=== PATIENT | female | born 2000 | race Caucasian/White ===

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

== ENCOUNTER 2020-05-07 00:29 | Observation (INO) | payer BC, MEDICAID ==
[2020-05-07] MEDS ORDERED: Albuterol 0.083% 2.5 MG/3 ML Neb Soln ONE ×2 (00:45)
[2020-05-07] MEDS ORDERED: propofoL 100 ML ONE (00:51)
--- NOTE | 2020-05-07 00:58 | EDM.PDOC ---
ED HPI GENERAL MEDICAL PROBLEM - General Chief Complaint: Respiratory Problem Stated Complaint: MONICA AMB Time Seen by Provider: 05/07/20 00:54 Source of Information: Reports: EMS History Limitations: Reports: Altered Mental Status - History of Present Illness INITIAL COMMENTS - FREE TEXT/NARRATIVE: A medical alert was called for this patient. Ms. Shook is a very pleasant 89-year-old woman with a past medical history significant for asthma and type 1 diabetes, who is now brought to the ED by EMS respiratory distress. According to the patient's mother, the patient went to bed around 10:00 last night, feeling just fine, but then knocked on her door around midnight, stating that she could not breathe. She stated that she had run out of her inhaler, and that the neb treatments were ineffective. Mom does not know how many neb treatments the patient may have tried. Mom called 911, and was informed that to cruise were out for other patients, and they advised her to put the patient into the car and start driving towards the hospital. The patient was too weak to stand, however, they were able to get her into the car, and the patient's mother drove her as far as [place], the patient may have stopped breathing. The patient's mother pulled over there and gave the patient a single rescue breath before EMS arrived after a few minutes. When EMS arrived, they found the patient to have agonal breathing, unresponsive. They performed a BMV en route to the ED. they did not give any medications. Upon arrival to the ED, the patient is initial BP was found to be elevated at 144/125 with a HR of 122 bpm, a RR of 8 rpm, afebrile, possibly saturating 74% on one reading, however, it was very quickly 100% with BMV. She was unresponsive to noxious stimuli. EMS reported that the patient had told her mother "I'm sorry". Not knowing the back story upon arrival, there was concern that the patient may have taken an overdose, therefore she was given 2 mg of IV Narcan, to no effect. On auscultation of her lungs, she had expiratory wheezes throughout her lung moy with a prolonged expiratory phase. The decision was therefore made to intubate the patient for respiratory failure (asthma exacerbation) and airway protection (low GCS). The patient was given 40 mg of IV propofol, along with 60 mg of IV rocuronium. She was then intubated at 00:42 with an 8.0 OETT to 24 cm incisors using a MAC 3 blade. Once the tube was secured, the patient was given albuterol solution via the ET tube. The patient was started on a propofol drip at 50 mcg/kg/min. An OG tube was placed per Charmaine ROGERS. A post-procedure portable chest x-ray was performed. According to the patient's mother, the patient has a cough on and off, otherwise, she has not had a recent fever, chills, sore throat, ear pain, nasal or sinus congestion, dyspnea, chest pain, palpitations, nausea, vomiting, constipation, diarrhea, abdominal pain, urinary symptoms, recent weight gain or weight loss, recent bloody bowel movements or black bowel movements, recent joint aches, headaches, or rashes. The patient's PCP is Michell Israel NP. - Related Data Allergies Allergy/AdvReac Type Severity Reaction Status Date / Time Penicillins Allergy Intermediate Rash Verified 05/02/17 20:24 adhesive tape Allergy Rash Verified 05/02/17 20:24 anjelica Allergy Difficulty Verified 05/02/17 20:24 Breathing Home Meds: Home Meds Singulair. 10 mg PO DAILY 10/09/14 [History] Zyrtec. 10 mg PO DAILY 10/09/14 [History] Albuterol [Proair HFA] 1 - 2 puff INH ASDIRECTED PRN 01/17/15 [History] Albuterol [Proventil Neb Soln] 2.5 mg NEB Q4HR PRN 01/17/15 [History] Insulin Aspart [NovoLOG] 0 unit SUBCUT .PHARMACY TO DOSE 01/17/15 [History] Pantoprazole [ProTONIX] 40 mg PO BEDTIME PRN 01/17/15 [History] Inhaler, Assist Devices [Space Chamber Plus] 1 each MC ASDIRECTED #1 spacer 06/07/16 [Rx] Advair Inhaler. 1 puff INH BID 05/02/17 [History] Prednisone [IJD: predniSONE] 20 mg PO BID PRN 10/03/17 [History] Past Medical History HEENT History: Reports: Allergic Rhinitis Respiratory History: Reports: Asthma Psychiatric History: Reports: Anxiety Endocrine/Metabolic History: Reports: Diabetes, Type I, Other (See Below) (Harris galactosemia) Dermatologic History: Reports: Eczema Social & Family History - Tobacco Use Tobacco Use Status *Q: Never Tobacco User - Alcohol Use Alcohol Use History: No - Recreational Drug Use Recreational Drug Use: No - Living Situation & Occupation Living situation: Reports: Single, with Family Occupation: Student (12th grade) ED ROS GENERAL - Review of Systems Review Of Systems: Comprehensive ROS is negative, except as noted in HPI. ED EXAM, GENERAL - Physical Exam Exam: See Below Exam Limited By: Altered Mental Status (Unresponsive) General Appearance: WD/WN Eye Exam: Bilateral Eye: Other (pupils 7 mm, non-reactive) Ears: Normal External Exam Nose: Normal Inspection Throat/Mouth: Normal Inspection, Normal Lips, Normal Teeth, Normal Gums, Normal Oropharynx (on intubation), No Airway Compromise Head: Atraumatic, Normocephalic Neck: Normal Inspection, Supple, Non-Tender, Full Range of Motion. No: Lymphadenopathy (L), Lymphadenopathy (R) Respiratory/Chest: No Accessory Muscle Use, Decreased Breath Sounds, Wheezing (throughout), Prolonged Expiration. No: Crackles, Rhonchi, Stridor Cardiovascular: Normal Peripheral Pulses, No Edema, No Gallop, No JVD, No Murmur, No Rub, Tachycardia (regular) Peripheral Pulses: 3+: Radial (L), Radial (R) GI/Abdominal: Normal Bowel Sounds, Soft, No Organomegaly, No Distention, No Abnormal Bruit, No Mass Back Exam: Normal Inspection, Full Range of Motion, NT Extremities: Normal Inspection, Normal Range of Motion, No Pedal Edema, Normal Capillary Refill Neurological: Unresponsive Skin Exam: Warm, Dry, Intact, Normal Color, No Rash Course - Vital Signs Last Recorded V/S: Last Vital Signs Temp 36.2 C 05/07/20 01:09 Pulse 122 H 05/07/20 01:09 Resp 8 L 05/07/20 01:09 BP 144/125 H 05/07/20 01:09 Pulse Ox 100 05/07/20 01:23 - Orders/Labs/Meds Orders: Active Orders 24 hr Category Date Time Status Accu Check [Blood Glucose Check, Bedside] [RC] ONETIME Care 05/07/20 01:01 Active Accu Check [Blood Glucose Check, Bedside] [RC] ONETIME Care 05/07/20 10:13 Active EKG Documentation Completion [RC] STAT Care 05/07/20 01:00 Active RT Aerosol Therapy [RC] ASDIRECTED Care 05/07/20 01:23 Active RT Aerosol Therapy [RC] ASDIRECTED Care 05/07/20 01:23 Active Chest 1V-Tube Placement Chk NC [CR] Stat Exams 05/07/20 00:33 Taken Midazolam [Versed 5 MG/ML] 100 mg Med 05/07/20 02:15 Active Sodium Chloride 0.9% [Normal Saline] 80 ml IV TITRATE Sodium Chloride 0.9% [Normal Saline] 1,000 ml Med 05/07/20 01:15 Active IV ASDIRECTED propofoL [Diprivan 100 ML] 100 ml Med 05/07/20 01:15 Active IV TITRATE Isolation [COMM] Routine Oth 05/07/20 01:36 Ordered Medication Orders Propofol (Diprivan 100 Ml) 100 mls @ 18 mls/hr IV TITRATE GUMARO; Protocol Last Admin: 05/07/20 03:56 Dose: 100 mcg/kg/min, 36 mls/hr Documented by: Titration: 05/07/20 03:56 Dose: 50 mcg/kg/min, 18 mls/hr Documented by: Admin: 05/07/20 01:20 Dose: 50 mcg/kg/min, 18 mls/hr Documented by: ETHAN Sodium Chloride (Normal Saline) 1,000 mls @ 150 mls/hr IV ASDIRECTED GUMARO Last Admin: 05/07/20 01:06 Dose: 150 mls/hr Documented by: ETHAN Midazolam HCl 100 mg/ Sodium (Chloride) 100 mls @ 6 mls/hr IV TITRATE GUMARO; Protocol Last Admin: 05/07/20 06:55 Dose: 0.2 mg/kg/hr, 12 mls/hr Documented by: [email or web address] Titration: 05/07/20 06:55 Dose: 0.1 mg/kg/hr, 6 mls/hr Documented by: Admin: 05/07/20 02:26 Dose: 0.1 mg/kg/hr, 6 mls/hr Documented by: SHWETHA Labs: Laboratory Tests 05/07/20 05/07/20 05/07/20 Range/Units 00:30 00:32 00:32 WBC 19.90 H (3.98-10.04) K/mm3 RBC 4.96 (3.98-5.22) M/mm3 Hgb 14.6 D (11.2-15.7) gm/dl Hct 45.0 H (34.1-44.9) % MCV 90.7 D (79.4-94.8) fl MCH 29.4 (25.6-32.2) pg MCHC 32.4 (32.2-35.5) g/dl RDW Std Deviation 40.8 (36.4-46.3) fL Plt Count 548 H D (182-369) K/mm3 MPV 8.8 L (9.4-12.3) fl Neut % (Auto) 29.5 L (34.0-71.1) % Lymph % (Auto) 48.1 (19.3-51.7) % Mcpherson % (Auto) 7.4 (4.7-12.5) % Eos % (Auto) 14.1 H (0.7-5.8) Baso % (Auto) 0.4 (0.1-1.2) % Neut # (Auto) 5.85 (1.56-6.13) K/mm3 Lymph # (Auto) 9.58 H (1.18-3.74) K/mm3 [place]pherson # (Auto) 1.48 H (0.24-0.36) K/mm3 Eos # (Auto) 2.81 H (0.04-0.36) K/mm3 Baso # (Auto) 0.08 (0.01-0.08) K/mm3 Manual Slide Review Abnormal smear D-Dimer, Quantitative (0.19-0.50) mg/L Puncture Site ABG pH (7.35-7.45) ABG pCO2 (35.0-45.0) mmHg ABG pO2 (80.0-100.0) mmHg ABG HCO3 (22.0-26.0) meq/L ABG O2 Saturation (96.0-97.0) % ABG Base Excess (-2-2.0) A-a Gradient mmHg O2 Delivery Device FiO2 (21.00-100.00) % Tidal Volume cc PEEP cmH20 Blood Gas Comments Sodium 141 (136-145) mEq/L Potassium 3.3 L (3.5-5.1) mEq/L Chloride 105 (98-107) mEq/L Carbon Dioxide 26 (21-32) mEq/L Anion Gap 13.3 (5-15) BUN 10 (7-18) mg/dL Creatinine 0.9 (0.55-1.02) mg/dL Est Cr Clr Drug Dosing TNP Estimated GFR (MDRD) > 60 (>60) mL/min BUN/Creatinine Ratio 11.1 L (14-18) Glucose 240 H (74-106) mg/dL POC Glucose 222 H (70-105) mg/dL Lactic Acid (0.4-2.0) mmol/L Calcium 8.3 L (8.5-10.1) mg/dL Magnesium 2.2 (1.8-2.4) mg/dl Total Bilirubin 0.3 (0.2-1.0) mg/dL AST 17 (15-37) U/L ALT 18 (14-59) U/L Alkaline Phosphatase 78 (46-116) U/L Total Protein 7.0 (6.4-8.2) g/dl Albumin 3.5 (3.4-5.0) g/dl Globulin 3.5 gm/dL Albumin/Globulin Ratio 1.0 (1-2) Urine Color (Yellow) Urine Appearance (Clear) Urine pH (5.0-8.0) Ur Specific [place] (1.005-1.030) Urine Protein (Negative) Urine Glucose (UA) (Negative) Urine Ketones (Negative) Urine Occult Blood (Negative) Urine Nitrite (Negative) Urine Bilirubin (Negative) Urine Urobilinogen (0.2-1.0) Ur Leukocyte Esterase (Negative) Urine HCG, Qual (NEGATIVE) Salicylates (2.8-20) mg/dL Urine Opiates Screen (RXPRAG=665) Ur Buprenorphine Scrn (CUTOFF=10) Ur Oxycodone Screen (LDH4YA=218) Urine Methadone Screen (SEFVJO=026) Ur Propoxyphene Screen (JNYNGF=177) Acetaminophen (10-30) ug/mL Ur Barbiturates Screen (ZOECOM=702) Ur Tricyclics Screen (XKWTGY=155) Ur Phencyclidine Scrn (CUTOFF=25) Ur Amphetamine Screen (QCFKZD=959) U Methamphetamines Scrn (IKNQWQ=167) U Benzodiazepines Scrn (KGBOYH=230) U Cocaine Metab Screen (SNWHXA=635) U Marijuana (THC) Screen (CUTOFF=50) Ethyl Alcohol 0.00 (0.00) gm% SARS-CoV-2 RNA (JAZLYN) (NEGATIVE) 05/07/20 05/07/20 05/07/20 Range/Units 00:32 00:32 00:32 WBC (3.98-10.04) K/mm3 RBC (3.98-5.22) M/mm3 Hgb (11.2-15.7) gm/dl Hct (34.1-44.9) % MCV (79.4-94.8) fl MCH (25.6-32.2) pg MCHC (32.2-35.5) g/dl RDW Std Deviation (36.4-46.3) fL Plt Count (182-369) K/mm3 MPV (9.4-12.3) fl Neut % (Auto) (34.0-71.1) % Lymph % (Auto) (19.3-51.7) % Mcpherson % (Auto) (4.7-12.5) % Eos % (Auto) (0.7-5.8) Baso % (Auto) (0.1-1.2) % Neut # (Auto) (1.56-6.13) K/mm3 Lymph # (Auto) (1.18-3.74) K/mm3 Mcpherson # (Auto) (0.24-0.36) K/mm3 Eos # (Auto) (0.04-0.36) K/mm3 Baso # (Auto) (0.01-0.08) K/mm3 Manual Slide Review D-Dimer, Quantitative 0.52 H (0.19-0.50) mg/L Puncture Site ABG pH (7.35-7.45) ABG pCO2 (35.0-45.0) mmHg ABG pO2 (80.0-100.0) mmHg ABG HCO3 (22.0-26.0) meq/L ABG O2 Saturation (96.0-97.0) % ABG Base Excess (-2-2.0) A-a Gradient mmHg O2 Delivery Device FiO2 (21.00-100.00) % Tidal Volume cc PEEP cmH20 Blood Gas Comments Sodium (136-145) mEq/L Potassium (3.5-5.1) mEq/L Chloride (98-107) mEq/L Carbon Dioxide (21-32) mEq/L Anion Gap (5-15) BUN (7-18) mg/dL Creatinine (0.55-1.02) mg/dL Est Cr Clr Drug Dosing Estimated GFR (MDRD) (>60) mL/min BUN/Creatinine Ratio (14-18) Glucose (74-106) mg/dL POC Glucose (70-105) mg/dL Lactic Acid (0.4-2.0) mmol/L Calcium (8.5-10.1) mg/dL Magnesium (1.8-2.4) mg/dl Total Bilirubin (0.2-1.0) mg/dL AST (15-37) U/L ALT (14-59) U/L Alkaline Phosphatase (46-116) U/L Total Protein (6.4-8.2) g/dl Albumin (3.4-5.0) g/dl Globulin gm/dL Albumin/Globulin Ratio (1-2) Urine Color (Yellow) Urine Appearance (Clear) Urine pH (5.0-8.0) Ur Specific [place] (1.005-1.030) Urine Protein (Negative) Urine Glucose (UA) (Negative) Urine Ketones (Negative) Urine Occult Blood (Negative) Urine Nitrite (Negative) Urine Bilirubin (Negative) Urine Urobilinogen (0.2-1.0) Ur Leukocyte Esterase (Negative) Urine HCG, Qual (NEGATIVE) Salicylates 0.4 L (2.8-20) mg/dL Urine Opiates Screen (RIOEMR=124) Ur Buprenorphine Scrn (CUTOFF=10) Ur Oxycodone Screen (DQQ0RB=748) Urine Methadone Screen (SKOEIL=081) Ur Propoxyphene Screen (EZLIMU=226) Acetaminophen 0 L (10-30) ug/mL Ur Barbiturates Screen (VEJPCC=298) Ur Tricyclics Screen (RKYETO=113) Ur Phencyclidine Scrn (CUTOFF=25) Ur Amphetamine Screen (VVJEUB=138) U Methamphetamines Scrn (IBYMJB=850) U Benzodiazepines Scrn (BWIMVL=651) U Cocaine Metab Screen (HQOSMS=467) U Marijuana (THC) Screen (CUTOFF=50) Ethyl Alcohol (0.00) gm% SARS-CoV-2 RNA (JAZLYN) (NEGATIVE) 05/07/20 05/07/20 05/07/20 Range/Units 00:45 00:59 00:59 WBC (3.98-10.04) K/mm3 RBC (3.98-5.22) M/mm3 Hgb (11.2-15.7) gm/dl Hct (34.1-44.9) % MCV (79.4-94.8) fl MCH (25.6-32.2) pg MCHC (32.2-35.5) g/dl RDW Std Deviation (36.4-46.3) fL Plt Count (182-369) K/mm3 MPV (9.4-12.3) fl Neut % (Auto) (34.0-71.1) % Lymph % (Auto) (19.3-51.7) % Mcpherson % (Auto) (4.7-12.5) % Eos % (Auto) (0.7-5.8) Baso % (Auto) (0.1-1.2) % Neut # (Auto) (1.56-6.13) K/mm3 Lymph # (Auto) (1.18-3.74) K/mm3 [place]pherson # (Auto) (0.24-0.36) K/mm3 Eos # (Auto) (0.04-0.36) K/mm3 Baso # (Auto) (0.01-0.08) K/mm3 Manual Slide Review D-Dimer, Quantitative (0.19-0.50) mg/L Puncture Site ABG pH (7.35-7.45) ABG pCO2 (35.0-45.0) mmHg ABG pO2 (80.0-100.0) mmHg ABG HCO3 (22.0-26.0) meq/L ABG O2 Saturation (96.0-97.0) % ABG Base Excess (-2-2.0) A-a Gradient mmHg O2 Delivery Device FiO2 (21.00-100.00) % Tidal Volume cc PEEP cmH20 Blood Gas Comments Sodium (136-145) mEq/L Potassium (3.5-5.1) mEq/L Chloride (98-107) mEq/L Carbon Dioxide (21-32) mEq/L Anion Gap (5-15) BUN (7-18) mg/dL Creatinine (0.55-1.02) mg/dL Est Cr Clr Drug Dosing Estimated GFR (MDRD) (>60) mL/min BUN/Creatinine Ratio (14-18) Glucose (74-106) mg/dL POC Glucose (70-105) mg/dL Lactic Acid (0.4-2.0) mmol/L Calcium (8.5-10.1) mg/dL Magnesium (1.8-2.4) mg/dl Total Bilirubin (0.2-1.0) mg/dL AST (15-37) U/L ALT (14-59) U/L Alkaline Phosphatase (46-116) U/L Total Protein (6.4-8.2) g/dl Albumin (3.4-5.0) g/dl Globulin gm/dL Albumin/Globulin Ratio (1-2) Urine Color Yellow (Yellow) Urine Appearance Clear (Clear) Urine pH 6.5 (5.0-8.0) Ur Specific [place] > or = 1.030 (1.005-1.030) Urine Protein 2+ H (Negative) Urine Glucose (UA) Trace H (Negative) Urine Ketones Negative (Negative) Urine Occult Blood 1+ H (Negative) Urine Nitrite Negative (Negative) Urine Bilirubin Negative (Negative) Urine Urobilinogen 0.2 (0.2-1.0) Ur Leukocyte Esterase Negative (Negative) Urine HCG, Qual (NEGATIVE) Salicylates (2.8-20) mg/dL Urine Opiates Screen Negative (INKTRS=562) Ur Buprenorphine Scrn Negative (CUTOFF=10) Ur Oxycodone Screen Negative (RZN5RN=893) Urine Methadone Screen Negative (PDDJVX=680) Ur Propoxyphene Screen Negative (MOIOQC=479) Acetaminophen (10-30) ug/mL Ur Barbiturates Screen Negative (WDVFFB=391) Ur Tricyclics Screen Negative (TGELCY=026) Ur Phencyclidine Scrn Negative (CUTOFF=25) Ur Amphetamine Screen Negative (LIOJKL=781) U Methamphetamines Scrn Negative (PUUHBB=635) U Benzodiazepines Scrn Negative (XQMMWQ=816) U Cocaine Metab Screen Negative (WWOIVM=689) U Marijuana (THC) Screen Negative (CUTOFF=50) Ethyl Alcohol (0.00) gm% SARS-CoV-2 RNA (JAZLYN) Negative (NEGATIVE) 05/07/20 05/07/20 05/07/20 Range/Units 00:59 01:05 02:20 WBC (3.98-10.04) K/mm3 RBC (3.98-5.22) M/mm3 Hgb (11.2-15.7) gm/dl Hct (34.1-44.9) % MCV (79.4-94.8) fl MCH (25.6-32.2) pg MCHC (32.2-35.5) g/dl RDW Std Deviation (36.4-46.3) fL Plt Count (182-369) K/mm3 MPV (9.4-12.3) fl Neut % (Auto) (34.0-71.1) % Lymph % (Auto) (19.3-51.7) % Mcpherson % (Auto) (4.7-12.5) % Eos % (Auto) (0.7-5.8) Baso % (Auto) (0.1-1.2) % Neut # (Auto) (1.56-6.13) K/mm3 Lymph # (Auto) (1.18-3.74) K/mm3 [place] # (Auto) (0.24-0.36) K/mm3 Eos # (Auto) (0.04-0.36) K/mm3 Baso # (Auto) (0.01-0.08) K/mm3 Manual Slide Review D-Dimer, Quantitative (0.19-0.50) mg/L Puncture Site Lt radial ABG pH 7.07 L* (7.35-7.45) ABG pCO2 91.8 H* (35.0-45.0) mmHg ABG pO2 215.0 H* (80.0-100.0) mmHg ABG HCO3 25.3 (22.0-26.0) meq/L ABG O2 Saturation 98.7 H (96.0-97.0) % ABG Base Excess -8.0 L (-2-2.0) A-a Gradient 26 mmHg O2 Delivery Device Ventilator FiO2 50.00 (21.00-100.00) % Tidal Volume 400.0 cc PEEP 5.0 cmH20 Blood Gas Comments Sodium (136-145) mEq/L Potassium (3.5-5.1) mEq/L Chloride (98-107) mEq/L Carbon Dioxide (21-32) mEq/L Anion Gap (5-15) BUN (7-18) mg/dL Creatinine (0.55-1.02) mg/dL Est Cr Clr Drug Dosing Estimated GFR (MDRD) (>60) mL/min BUN/Creatinine Ratio (14-18) Glucose (74-106) mg/dL POC Glucose (70-105) mg/dL Lactic Acid 2.7 H* (0.4-2.0) mmol/L Calcium (8.5-10.1) mg/dL Magnesium (1.8-2.4) mg/dl Total Bilirubin (0.2-1.0) mg/dL AST (15-37) U/L ALT (14-59) U/L Alkaline Phosphatase (46-116) U/L Total Protein (6.4-8.2) g/dl Albumin (3.4-5.0) g/dl Globulin gm/dL Albumin/Globulin Ratio (1-2) Urine Color (Yellow) Urine Appearance (Clear) Urine pH (5.0-8.0) Ur Specific [place] (1.005-1.030) Urine Protein (Negative) Urine Glucose (UA) (Negative) Urine Ketones (Negative) Urine Occult Blood (Negative) Urine Nitrite (Negative) Urine Bilirubin (Negative) Urine Urobilinogen (0.2-1.0) Ur Leukocyte Esterase (Negative) Urine HCG, Qual Negative (NEGATIVE) Salicylates (2.8-20) mg/dL Urine Opiates Screen (EZAEUU=886) Ur Buprenorphine Scrn (CUTOFF=10) Ur Oxycodone Screen (WZU3NQ=140) Urine Methadone Screen (DZMNTV=602) Ur Propoxyphene Screen (EAEOKK=631) Acetaminophen (10-30) ug/mL Ur Barbiturates Screen (EIKNYS=045) Ur Tricyclics Screen (ILGBQX=666) Ur Phencyclidine Scrn (CUTOFF=25) Ur Amphetamine Screen (LQTXKH=357) U Methamphetamines Scrn (PEKTDZ=746) U Benzodiazepines Scrn (SBRXJI=711) U Cocaine Metab Screen (ZHNJSD=821) U Marijuana (THC) Screen (CUTOFF=50) Ethyl Alcohol (0.00) gm% SARS-CoV-2 RNA (JAZLYN) (NEGATIVE) 10/13/20 10/13/20 10/13/20 Range/Units 03:18 08:35 10:17 WBC (3.98-10.04) K/mm3 RBC (3.98-5.22) M/mm3 Hgb (11.2-15.7) gm/dl Hct (34.1-44.9) % MCV (79.4-94.8) fl MCH (25.6-32.2) pg MCHC (32.2-35.5) g/dl RDW Std Deviation (36.4-46.3) fL Plt Count (182-369) K/mm3 MPV (9.4-12.3) fl Neut % (Auto) (34.0-71.1) % Lymph % (Auto) (19.3-51.7) % [place] % (Auto) (4.7-12.5) % Eos % (Auto) (0.7-5.8) Baso % (Auto) (0.1-1.2) % Neut # (Auto) (1.56-6.13) K/mm3 Lymph # (Auto) (1.18-3.74) K/mm3 [place] # (Auto) (0.24-0.36) K/mm3 Eos # (Auto) (0.04-0.36) K/mm3 Baso # (Auto) (0.01-0.08) K/mm3 Manual Slide Review D-Dimer, Quantitative (0.19-0.50) mg/L Puncture Site Rt radial ABG pH 7.22 L (7.35-7.45) ABG pCO2 57.9 H (35.0-45.0) mmHg ABG pO2 43.0 L (80.0-100.0) mmHg ABG HCO3 22.7 (22.0-26.0) meq/L ABG O2 Saturation 56.0 L (96.0-97.0) % ABG Base Excess -5.4 L (-2-2.0) A-a Gradient 99 mmHg O2 Delivery Device Ventilator FiO2 30.00 (21.00-100.00) % Tidal Volume 550.0 cc PEEP 5.0 cmH20 Blood Gas Comments Md aware mixed venou Sodium (136-145) mEq/L Potassium (3.5-5.1) mEq/L Chloride (98-107) mEq/L Carbon Dioxide (21-32) mEq/L Anion Gap (5-15) BUN (7-18) mg/dL Creatinine (0.55-1.02) mg/dL Est Cr Clr Drug Dosing Estimated GFR (MDRD) (>60) mL/min BUN/Creatinine Ratio (14-18) Glucose (74-106) mg/dL POC Glucose 261 H 220 H (70-105) mg/dL Lactic Acid (0.4-2.0) mmol/L Calcium (8.5-10.1) mg/dL Magnesium (1.8-2.4) mg/dl Total Bilirubin (0.2-1.0) mg/dL AST (15-37) U/L ALT (14-59) U/L Alkaline Phosphatase (46-116) U/L Total Protein (6.4-8.2) g/dl Albumin (3.4-5.0) g/dl Globulin gm/dL Albumin/Globulin Ratio (1-2) Urine Color (Yellow) Urine Appearance (Clear) Urine pH (5.0-8.0) Ur Specific [place] (1.005-1.030) Urine Protein (Negative) Urine Glucose (UA) (Negative) Urine Ketones (Negative) Urine Occult Blood (Negative) Urine Nitrite (Negative) Urine Bilirubin (Negative) Urine Urobilinogen (0.2-1.0) Ur Leukocyte Esterase (Negative) Urine HCG, Qual (NEGATIVE) Salicylates (2.8-20) mg/dL Urine Opiates Screen (VHTGIL=188) Ur Buprenorphine Scrn (CUTOFF=10) Ur Oxycodone Screen (MBZ4ZO=503) Urine Methadone Screen (SRCWNA=814) Ur Propoxyphene Screen (RLGYMB=178) Acetaminophen (10-30) ug/mL Ur Barbiturates Screen (PDLUBG=470) Ur Tricyclics Screen (OTQLUM=353) Ur Phencyclidine Scrn (CUTOFF=25) Ur Amphetamine Screen (GJKNSC=024) U Methamphetamines Scrn (SAOAKP=159) U Benzodiazepines Scrn (DVHNHK=243) U Cocaine Metab Screen (DPUXNH=994) U Marijuana (THC) Screen (CUTOFF=50) Ethyl Alcohol (0.00) gm% SARS-CoV-2 RNA (JAZLYN) (NEGATIVE) Meds: Medications Generic Name Dose Route Start Last Admin Trade Name Freq PRN Reason Stop Dose Admin Propofol 100 mls @ 18 mls/hr 10/13/20 01:15 05/07/20 03:56 Diprivan 100 Ml IV 100 mcg/kg/min TITRATE GUMARO 36 mls/hr Administration Protocol 50 MCG/KG/MIN Sodium Chloride 1,000 mls @ 150 mls/hr 05/07/20 01:15 05/07/20 01:06 Normal Saline IV 150 mls/hr ASDIRECTED GUMARO Administration Midazolam HCl 100 mg/ Sodium 100 mls @ 6 mls/hr 05/07/20 02:15 05/07/20 06:55 Chloride IV 0.2 mg/kg/hr TITRATE GUMARO 12 mls/hr Administration Protocol 0.1 MG/KG/HR Discontinued Medications Generic Name Dose Route Start Last Admin Trade Name Sincere GONZALEZ Reason Stop Dose Admin Albuterol Confirm 05/07/20 00:45 05/07/20 01:30 Proventil Neb Soln Administered 05/07/20 00:46 Not Given Dose 2.5 mg .ROUTE .STK-MED ONE Albuterol Confirm 05/07/20 00:45 05/07/20 01:30 Proventil Neb Soln Administered 05/07/20 00:46 Not Given Dose 2.5 mg .ROUTE .STK-MED ONE Albuterol 2.5 mg 05/07/20 01:23 05/07/20 01:39 Proventil Neb Soln NEB 05/07/20 01:24 2.5 mg ONETIME ONE Administration Albuterol 2.5 mg 05/07/20 01:23 05/07/20 00:45 Proventil Neb Soln NEB 05/07/20 01:24 2.5 mg ONETIME ONE Administration Propofol Confirm 05/07/20 00:51 05/07/20 01:12 Diprivan 100 Ml Administered 05/07/20 00:52 Not Given Dose 100 mls @ as directed .ROUTE .STK-MED ONE Sodium Chloride Confirm 05/07/20 02:14 05/07/20 02:23 Normal Saline Administered 05/07/20 02:15 Not Given Dose 50 mls @ as directed .ROUTE .STK-MED ONE Lorazepam 1 mg 05/07/20 02:00 05/07/20 02:10 Ativan IVPUSH 05/07/20 02:01 1 mg ONETIME STA Administration Lorazepam Confirm 05/07/20 02:00 05/07/20 02:23 Ativan Administered 05/07/20 02:01 Not Given Dose 2 mg .ROUTE .STK-MED ONE Lorazepam 1 mg 05/07/20 02:13 05/07/20 02:02 Ativan IVPUSH 05/07/20 02:14 1 mg ONETIME STA Administration Methylprednisolone Sodium Succinate 125 mg 05/07/20 01:22 05/07/20 01:32 Solu-Medrol IVPUSH 05/07/20 01:23 125 mg ONETIME ONE Administration Midazolam HCl Confirm 05/07/20 02:13 05/07/20 02:23 Versed 5 Mg/Ml Administered 05/07/20 02:14 Not Given Dose 50 mg .ROUTE .STK-MED ONE Naloxone HCl 2 mg 05/07/20 01:03 05/07/20 01:07 Narcan IVPUSH 05/07/20 01:04 2 mg ONETIME ONE Administration Propofol 40 mg 05/07/20 01:03 05/07/20 01:21 Diprivan 20 Ml IVPUSH 05/07/20 01:04 40 mg ONETIME ONE Administration Rocuronium Blanco 60 mg 05/07/20 01:03 05/07/20 01:08 Zemuron IVPUSH 05/07/20 01:04 60 mg ONETIME ONE Administration - Re-Assessments/Exams Free Text/Narrative Re-Assessment/Exam: 05/07/20 01:24 Portable chest x-ray is read by Sarahiad as "Status post endotracheal tube and enteric tube in appropriate position." On a vent setting of A/C 10/.400/5/0.50 = MV 4 L/min, the patient's ABG at 01:18 indicates an acute respiratory acidosis. I therefore changed the vent to A/C 14/.550/5/0.40 = MV 7.7 L/min. I would like to increase her MV to 9.2 L/min, however, I am concerned that she may stack breaths even with these current vent settings. If that occurs, we will have to allow permissive hypercapnia. At present, her PAP is around 28, but we will keep an eye on it, and repeat an ABG around 01:35. I have ordered Solu-Medrol 125 mg IVP and a second albuterol neb. 05/07/20 02:13 Notified by Charmaine ROGERS that the patient has become agitated, and is biting on her tube, possibly trying to sit up. She was given 1 mg of Ativan, with no significant improvement, therefore she was given a 40 mg bolus of propofol, with her drip increased to 100 mcg/kg/min. This provided only temporary relief, but she is agitated again, therefore I ordered an additional 1 mg of IV Ativan, to be followed by the addition of a midazolam drip at 0.1 mg/kg/h. The patient's CBC is remarkable for a WBC count elevated at 19.90, a Hct depressed at 45.0 with a Hgb normal at 14.6, and thrombocytosis of 548,000. Her CMP is remarkable for a potassium mildly depressed at 3.3, and a blood glucose elevated at 240, with the remainder of her CMP being unremarkable. Her magnesium level is within normal limits at 2.2. Her salicylate level is within normal limits at 0.4. Her acetaminophen level is 0. Her EtOH level is 0.00. Her D-dimer is slightly elevated at 0.52. Her urinalysis is unremarkable. Her urine test is negative. Her urine drug screen is completely negative. Her swab for the SARS-CoV-2 virus returned negative. Her lactic acid level, influenza swab, and a second ABG are still pending. 05/07/20 02:58 At present, the patient is still moving around, but no longer biting on her ET tube. Her propofol is still at 100 mcg/kg/min with a midazolam drip at 0.1 mg/kg/h. We will increase the midazolam drip to 0.15 mg/kg/h. I am reluctant to add an opioid, such as fentanyl, as opioids can cause bronchospasm. On auscultation of her lungs, she sounds clear, with no audible wheezing, and her PAP is only 15 cmH2O. She is overbreathing the vent at 17 to 18 bpm. Her oxygen saturation is 100% with an FiO2 of 0.40. I decreased it to 0.30. She may very well be in a position to extubate, however, I would prefer to have that done in the morning, gradually, when more resources are available, in case her condition reverses. Due to the patient's earlier agitation, the RT was unable to obtain the second ABG. She will likely be able to obtain one now. 05/07/20 03:12 I updated the patient's family on her condition. The patient's lactic acid level is elevated at 2.7. Her influenza swab returned negative. The patient's elevated lactic acid level represents hyperlactemia, not lactic acidosis, as neither her chemistry panel nor ABG has a low bicarbonate level, and her chemistry panel does not indicate an elevated anion gap. The patient is more agitated again. The RT was able to obtain a second ABG, which has not yet resulted. 05/07/20 03:33 The repeat ABG continues to show an acute respiratory acidosis, however, it is clearly a venous sample, as the pO2 is 43 with an SaO2 of 56%, while her SpO2 is 100%. Nevertheless, there is improvement in the pH and pCO2. Since the patient is overbreathing the vent, I will leave the settings unchanged. 05/07/20 03:42 The patient is still intermittently agitated. We will increase the midazolam drip to 0.2 mg/kg/h, however, that is the maximum. 05/07/20 05:22 I reevaluated the patient. Her mother is sitting with her. She is adequately sedated. Her lungs remain clear to auscultation bilaterally, and her PAP is 15 cmH2O. I believe we will keep the patient sedated until around 7 AM, at which time we can discontinue the sedation. I suspect that the patient will wake up fairly quickly. As she does so, she will likely panic and attempt to pull her endotracheal tube out. For that reason, she will likely require soft restraints and 1 or 2 staff members present. When the patient is adequately awake, we can extubate her. 05/07/20 06:42 Discussed with Charmaine ROGERS - we will stop the sedatives at this time. 05/07/20 06:54 I reevaluated the patient. She is currently well sedated as the sedatives are being discontinued. Her lungs are still clear to auscultation bilaterally. She is still overbreathing the vent at 17 rpm, with a PAP of 15 cmH2O. Her etCO2 is 29. Soft wrist restraints have been applied. 05/07/20 10:21 The patient is waking up slower than we had hoped. The respiratory therapist currently has her on CPAP, and she is doing well with that, however, if left undisturbed, she is asleep. If she is gently tapped, she will open her eyes a little and look around,, but not follow commands yet. 05/07/20 11:07 Although it took longer than anticipated, the patient woke up and did very well on PS 5. Her NIF was -90 with a TV of 1400 to 1800. She felt that her breathing was good enough that she could be extubated. The patient was extubated at 11:04. We would like to place the patient into observation, just to make sure that she does well. The patient's mother is agreeable. 05/07/20 11:[address] Benson. He accepted the patient for placement into observation in the ICU. Departure - Departure Time of Disposition: 11:11 Disposition: Refer to Observation Condition: Good Clinical Impression: Respiratory failure, Asthma exacerbation, Hyperglycemia due to type 1 diabetes mellitus - Discharge Information *PRESCRIPTION DRUG MONITORING PROGRAM REVIEWED*: Not Applicable *COPY OF PRESCRIPTION DRUG MONITORING REPORT IN PATIENT CARLOS ALBERTO: Not Applicable Referrals: Michell Israel NP [Ordering Only Provider] - Forms: ED Department Discharge Sepsis Event Note (ED) - Focused Exam Vital Signs: Vital Signs Temp Pulse Resp BP Pulse Ox Pulse Ox 05/07/20 01:23 100 05/07/20 01:09 36.2 C 122 H 8 L 144/125 H 74 L - My Orders Last 24 Hours: My Active Orders 05/07/20 00:33 Chest 1V-Tube Placement Chk NC [CR] Stat 05/07/20 01:00 EKG Documentation Completion [RC] STAT 05/07/20 01:01 Accu Check [Blood Glucose Check, Bedside] [RC] ONETIME 05/07/20 01:15 Sodium Chloride 0.9% [Normal Saline] 1,000 ml IV ASDIRECTED propofoL [Diprivan 100 ML] 100 ml IV TITRATE 05/07/20 01:23 RT Aerosol Therapy [RC] ASDIRECTED RT Aerosol Therapy [RC] ASDIRECTED 05/07/20 01:36 Isolation [COMM] Routine 05/07/20 02:15 Midazolam [Versed 5 MG/ML] 100 mg Sodium Chloride 0.9% [Normal Saline] 80 ml IV TITRATE 05/07/20 10:13 Accu Check [Blood Glucose Check, Bedside] [RC] ONETIME - Assessment/Plan Last 24 Hours: My Active Orders 05/07/20 00:33 Chest 1V-Tube Placement Chk NC [CR] Stat 05/07/20 01:00 EKG Documentation Completion [RC] STAT 05/07/20 01:01 Accu Check [Blood Glucose Check, Bedside] [RC] ONETIME 05/07/20 01:15 Sodium Chloride 0.9% [Normal Saline] 1,000 ml IV ASDIRECTED propofoL [Diprivan 100 ML] 100 ml IV TITRATE 05/07/20 01:23 RT Aerosol Therapy [RC] ASDIRECTED RT Aerosol Therapy [RC] ASDIRECTED 05/07/20 01:36 Isolation [COMM] Routine 05/07/20 02:15 Midazolam [Versed 5 MG/ML] 100 mg Sodium Chloride 0.9% [Normal Saline] 80 ml IV TITRATE 05/07/20 10:13 Accu Check [Blood Glucose Check, Bedside] [RC] ONETIME EKG INTERPRETATION EKG Date: 05/07/20 Time: 01:11 Rhythm: Other (Sinus tachycardia) Rate (Beats/Min): 126 [place]: RAD-Right [place] Deviation P-Wave: Present QRS: Other (Late transition) ST-T: Normal QT: Prolonged (QTc 631 ms) Comparison: NA - No Prior EKG
[2020-05-07] MEDS ORDERED: Propofol 200 MG/20 ML SDV IVPUSH ONE (01:03)
[2020-05-07] MEDS ORDERED: Naloxone 2 MG/2 ML Syringe IVPUSH ONE (01:03)
[2020-05-07] MEDS ORDERED: Rocuronium 50 MG/5 ML Vial IVPUSH ONE (01:03)
[2020-05-07] MEDS ORDERED: Sodium Chloride 0.9% 1,000 ML IV SCH ×2 (01:15→13:15)
[2020-05-07 01:20] VITALS: PULSE 122
[2020-05-07] MEDS: propofoL 100 ML IV SCH ×2 (01:20→03:56)
[2020-05-07] MEDS ORDERED: methylPREDNISolone Sodium Succinate 125 MG/2 ML SDV IVPUSH ONE (01:22)
[2020-05-07] MEDS ORDERED: Albuterol 0.083% 2.5 MG/3 ML Neb Soln NEB ONE ×2 (01:23)
[2020-05-07] MEDS ORDERED: LORazepam 2 MG/ML SDV IVPUSH STA ×2 (02:00→02:13)
[2020-05-07] MEDS ORDERED: LORazepam 2 MG/ML SDV ONE (02:00)
[2020-05-07] MEDS ORDERED: Midazolam 5 MG/ML 10 ML MDV ONE (02:13)
[2020-05-07] MEDS ORDERED: Sodium Chloride 0.9% 50 ML ONE (02:14)
--- NOTE | 2020-05-07 11:48 | PCM.HP.2 ---
H&P History of Present Illness - General Date of Service: 05/07/20 Admit Problem/Dx: Respiratory arrest secondary to asthma exacerbation and post extubation. Source of Information: Patient History Limitations: Reports: No Limitations - History of Present Illness Initial Comments - Free Text/Narative: Patient is a 19-year-old lady who had presented to the emergency department in complete respiratory arrest. The patient does have a history of severe asthma. Patient says that her outpatient medications may not have been enough to prevent the episode. The patient reportedly had difficulty breathing to the point that she had collapsed stopped breathing and her mother had resuscitated her. The patient was in the emergency department and had been intubated. Later the next day the patient was successfully weaned and extubated. The patient says that she has never had anything like this happen to her before. The patient says that she is a type I diabetic and has an insulin pump. The patient currently feels tired and fatigued. She has denied any pain. She says that she is not short of breath. Patient also has denied any nausea or vomiting. Onset of Symptoms: Reports: Sudden Duration of Symptoms: Reports: Hour(s):, Improving Location: Reports: Chest Quality: Reports: Ache Severity: Moderate Improves with: Reports: Medication Worsens with: Reports: Breathing Associated Symptoms: Reports: No Other Symptoms - Related Data Allergies/Adverse Reactions: Allergies Allergy/AdvReac Type Severity Reaction Status Date / Time Penicillins Allergy Intermediate Rash Verified 05/02/17 20:24 adhesive tape Allergy Rash Verified 05/02/17 20:24 anjelica Allergy Difficulty Verified 05/02/17 20:24 Breathing Home Medications: Home Meds Singulair. 10 mg PO DAILY 10/09/14 [History] Zyrtec. 10 mg PO DAILY 10/09/14 [History] Albuterol [Proair HFA] 1 - 2 puff INH ASDIRECTED PRN 01/17/15 [History] Albuterol [Proventil Neb Soln] 2.5 mg NEB Q4HR PRN 01/17/15 [History] Insulin Aspart [NovoLOG] 0 unit SUBCUT .PHARMACY TO DOSE 01/17/15 [History] Pantoprazole [ProTONIX] 40 mg PO BEDTIME PRN 01/17/15 [History] Inhaler, Assist Devices [Space Chamber Plus] 1 each ASDIRECTED #1 spacer 06/07/16 [Rx] Advair Inhaler. 1 puff INH BID 05/02/17 [History] Prednisone [IJD: predniSONE] 20 mg PO BID PRN 10/03/17 [History] Past Medical History HEENT History: Reports: Allergic Rhinitis Other HEENT History: allergies Cardiovascular History: Reports: None Respiratory History: Reports: Asthma Gastrointestinal History: Reports: GERD Genitourinary History: Reports: None Psychiatric History: Reports: Anxiety Endocrine/Metabolic History: Reports: Diabetes, Type I, Other (See Below) (Harris galactosemia) Dermatologic History: Reports: Eczema Other Dermatologic History: none Social & Family History - Tobacco Use Tobacco Use Status *Q: Never Tobacco User - Recreational Drug Use Recreational Drug Use: No - Living Situation & Occupation Living situation: Reports: Single, with Family Occupation: Student (12th grade) H&P Review of Systems - Review of Systems: Review Of Systems: See Below General: Reports: Fatigue HEENT: Reports: No Symptoms Pulmonary: Reports: Shortness of Breath Cardiovascular: Reports: No Symptoms Gastrointestinal: Reports: No Symptoms Genitourinary: Reports: No Symptoms Musculoskeletal: Reports: No Symptoms Skin: Reports: No Symptoms Psychiatric: Reports: No Symptoms Neurological: Reports: No Symptoms Hematologic/Lymphatic: Reports: No Symptoms Immunologic: Reports: No Symptoms Exam - Exam Exam: See Below - Vital Signs Vital Signs: Last Vital Signs Temp 36.2 C 05/07/20 01:09 Pulse 122 H 05/07/20 01:09 Resp 8 L 05/07/20 01:09 BP 144/125 H 05/07/20 01:09 Pulse Ox 100 05/07/20 01:23 Weight: 60 kg - Exam Quality Assessment: Supplemental Oxygen General: Alert, Oriented, Cooperative HEENT: Conjunctiva Clear, EACs Clear, Nares Patent. No: Mucosa Moist & [place] (Dry) Neck: Supple, Trachea Midline Lungs: Normal Respiratory Effort, Wheezing (Widely scattered) Cardiovascular: Regular Rate, Regular Rhythm GI/Abdominal Exam: Normal Bowel Sounds, Soft, Non-Tender, No Distention (Female) Exam: Deferred Rectal (Female) Exam: Deferred Back Exam: Normal Inspection, Full Range of Motion Extremities: Normal Inspection, Normal Range of Motion, No Pedal Edema Skin: Warm, Dry, Intact Neurological: Cranial Nerves Intact Neuro Extensive - Mental Status: Alert, Oriented x3 Neuro Extensive - Motor, Sensory, Reflexes: CN II-XII Intact Psychiatric: Alert, Normal Affect, Normal Mood - Patient Data Lab Results Last 24 hrs: Laboratory Results - last 24 hr 05/07/20 05/07/20 05/07/20 Range/Units 00:30 00:32 00:32 WBC 19.90 H (3.98-10.04) K/mm3 RBC 4.96 (3.98-5.22) M/mm3 Hgb 14.6 D (11.2-15.7) gm/dl Hct 45.0 H (34.1-44.9) % MCV 90.7 D (79.4-94.8) fl MCH 29.4 (25.6-32.2) pg MCHC 32.4 (32.2-35.5) g/dl RDW Std Deviation 40.8 (36.4-46.3) fL Plt Count 548 H D (182-369) K/mm3 MPV 8.8 L (9.4-12.3) fl Neut % (Auto) 29.5 L (34.0-71.1) % Lymph % (Auto) 48.1 (19.3-51.7) % [place] % (Auto) 7.4 (4.7-12.5) % Eos % (Auto) 14.1 H (0.7-5.8) Baso % (Auto) 0.4 (0.1-1.2) % Neut # (Auto) 5.85 (1.56-6.13) K/mm3 Lymph # (Auto) 9.58 H (1.18-3.74) K/mm3 [place] # (Auto) 1.48 H (0.24-0.36) K/mm3 Eos # (Auto) 2.81 H (0.04-0.36) K/mm3 Baso # (Auto) 0.08 (0.01-0.08) K/mm3 Manual Slide Review Abnormal smear D-Dimer, Quantitative (0.19-0.50) mg/L Puncture Site ABG pH (7.35-7.45) ABG pCO2 (35.0-45.0) mmHg ABG pO2 (80.0-100.0) mmHg ABG HCO3 (22.0-26.0) meq/L ABG O2 Saturation (96.0-97.0) % ABG Base Excess (-2-2.0) A-a Gradient mmHg O2 Delivery Device FiO2 (21.00-100.00) % Tidal Volume cc PEEP cmH20 Blood Gas Comments Sodium 141 (136-145) mEq/L Potassium 3.3 L (3.5-5.1) mEq/L Chloride 105 (98-107) mEq/L Carbon Dioxide 26 (21-32) mEq/L Anion Gap 13.3 (5-15) BUN 10 (7-18) mg/dL Creatinine 0.9 (0.55-1.02) mg/dL Est Cr Clr Drug Dosing TNP Estimated GFR (MDRD) > 60 (>60) mL/min BUN/Creatinine Ratio 11.1 L (14-18) Glucose 240 H (74-106) mg/dL POC Glucose 222 H (70-105) mg/dL Lactic Acid (0.4-2.0) mmol/L Calcium 8.3 L (8.5-10.1) mg/dL Magnesium 2.2 (1.8-2.4) mg/dl Total Bilirubin 0.3 (0.2-1.0) mg/dL AST 17 (15-37) U/L ALT 18 (14-59) U/L Alkaline Phosphatase 78 (46-116) U/L Total Protein 7.0 (6.4-8.2) g/dl Albumin 3.5 (3.4-5.0) g/dl Globulin 3.5 gm/dL Albumin/Globulin Ratio 1.0 (1-2) Urine Color (Yellow) Urine Appearance (Clear) Urine pH (5.0-8.0) Ur Specific [place] (1.005-1.030) Urine Protein (Negative) Urine Glucose (UA) (Negative) Urine Ketones (Negative) Urine Occult Blood (Negative) Urine Nitrite (Negative) Urine Bilirubin (Negative) Urine Urobilinogen (0.2-1.0) Ur Leukocyte Esterase (Negative) Urine HCG, Qual (NEGATIVE) Salicylates (2.8-20) mg/dL Urine Opiates Screen (FSAEKK=684) Ur Buprenorphine Scrn (CUTOFF=10) Ur Oxycodone Screen (WGK7UK=831) Urine Methadone Screen (KQYWPO=428) Ur Propoxyphene Screen (LWSYIO=515) Acetaminophen (10-30) ug/mL Ur Barbiturates Screen (JEMNKV=387) Ur Tricyclics Screen (ZEUODL=882) Ur Phencyclidine Scrn (CUTOFF=25) Ur Amphetamine Screen (WVMRGM=177) U Methamphetamines Scrn (FXLPCH=662) U Benzodiazepines Scrn (AWBWCZ=548) U Cocaine Metab Screen (SFVIIJ=368) U Marijuana (THC) Screen (CUTOFF=50) Ethyl Alcohol 0.00 (0.00) gm% SARS-CoV-2 RNA (JAZLYN) (NEGATIVE) 05/07/20 05/07/20 05/07/20 Range/Units 00:32 00:32 00:32 WBC (3.98-10.04) K/mm3 RBC (3.98-5.22) M/mm3 Hgb (11.2-15.7) gm/dl Hct (34.1-44.9) % MCV (79.4-94.8) fl MCH (25.6-32.2) pg MCHC (32.2-35.5) g/dl RDW Std Deviation (36.4-46.3) fL Plt Count (182-369) K/mm3 MPV (9.4-12.3) fl Neut % (Auto) (34.0-71.1) % Lymph % (Auto) (19.3-51.7) % [place] % (Auto) (4.7-12.5) % Eos % (Auto) (0.7-5.8) Baso % (Auto) (0.1-1.2) % Neut # (Auto) (1.56-6.13) K/mm3 Lymph # (Auto) (1.18-3.74) K/mm3 [place] # (Auto) (0.24-0.36) K/mm3 Eos # (Auto) (0.04-0.36) K/mm3 Baso # (Auto) (0.01-0.08) K/mm3 Manual Slide Review D-Dimer, Quantitative 0.52 H (0.19-0.50) mg/L Puncture Site ABG pH (7.35-7.45) ABG pCO2 (35.0-45.0) mmHg ABG pO2 (80.0-100.0) mmHg ABG HCO3 (22.0-26.0) meq/L ABG O2 Saturation (96.0-97.0) % ABG Base Excess (-2-2.0) A-a Gradient mmHg O2 Delivery Device FiO2 (21.00-100.00) % Tidal Volume cc PEEP cmH20 Blood Gas Comments Sodium (136-145) mEq/L Potassium (3.5-5.1) mEq/L Chloride (98-107) mEq/L Carbon Dioxide (21-32) mEq/L Anion Gap (5-15) BUN (7-18) mg/dL Creatinine (0.55-1.02) mg/dL Est Cr Clr Drug Dosing Estimated GFR (MDRD) (>60) mL/min BUN/Creatinine Ratio (14-18) Glucose (74-106) mg/dL POC Glucose (70-105) mg/dL Lactic Acid (0.4-2.0) mmol/L Calcium (8.5-10.1) mg/dL Magnesium (1.8-2.4) mg/dl Total Bilirubin (0.2-1.0) mg/dL AST (15-37) U/L ALT (14-59) U/L Alkaline Phosphatase (46-116) U/L Total Protein (6.4-8.2) g/dl Albumin (3.4-5.0) g/dl Globulin gm/dL Albumin/Globulin Ratio (1-2) Urine Color (Yellow) Urine Appearance (Clear) Urine pH (5.0-8.0) Ur Specific [place] (1.005-1.030) Urine Protein (Negative) Urine Glucose (UA) (Negative) Urine Ketones (Negative) Urine Occult Blood (Negative) Urine Nitrite (Negative) Urine Bilirubin (Negative) Urine Urobilinogen (0.2-1.0) Ur Leukocyte Esterase (Negative) Urine HCG, Qual (NEGATIVE) Salicylates 0.4 L (2.8-20) mg/dL Urine Opiates Screen (GTOEZA=332) Ur Buprenorphine Scrn (CUTOFF=10) Ur Oxycodone Screen (DFS5ZU=685) Urine Methadone Screen (GHOFLA=183) Ur Propoxyphene Screen (BUEGTJ=202) Acetaminophen 0 L (10-30) ug/mL Ur Barbiturates Screen (MLRGIB=502) Ur Tricyclics Screen (OFHYNB=677) Ur Phencyclidine Scrn (CUTOFF=25) Ur Amphetamine Screen (SXDMKO=735) U Methamphetamines Scrn (KCFWPJ=726) U Benzodiazepines Scrn (FMSVDI=420) U Cocaine Metab Screen (LMAHLZ=424) U Marijuana (THC) Screen (CUTOFF=50) Ethyl Alcohol (0.00) gm% SARS-CoV-2 RNA (JAZLYN) (NEGATIVE) 05/07/20 05/07/20 05/07/20 Range/Units 00:45 00:59 00:59 WBC (3.98-10.04) K/mm3 RBC (3.98-5.22) M/mm3 Hgb (11.2-15.7) gm/dl Hct (34.1-44.9) % MCV (79.4-94.8) fl MCH (25.6-32.2) pg MCHC (32.2-35.5) g/dl RDW Std Deviation (36.4-46.3) fL Plt Count (182-369) K/mm3 MPV (9.4-12.3) fl Neut % (Auto) (34.0-71.1) % Lymph % (Auto) (19.3-51.7) % [place] % (Auto) (4.7-12.5) % Eos % (Auto) (0.7-5.8) Baso % (Auto) (0.1-1.2) % Neut # (Auto) (1.56-6.13) K/mm3 Lymph # (Auto) (1.18-3.74) K/mm3 [place] # (Auto) (0.24-0.36) K/mm3 Eos # (Auto) (0.04-0.36) K/mm3 Baso # (Auto) (0.01-0.08) K/mm3 Manual Slide Review D-Dimer, Quantitative (0.19-0.50) mg/L Puncture Site ABG pH (7.35-7.45) ABG pCO2 (35.0-45.0) mmHg ABG pO2 (80.0-100.0) mmHg ABG HCO3 (22.0-26.0) meq/L ABG O2 Saturation (96.0-97.0) % ABG Base Excess (-2-2.0) A-a Gradient mmHg O2 Delivery Device FiO2 (21.00-100.00) % Tidal Volume cc PEEP cmH20 Blood Gas Comments Sodium (136-145) mEq/L Potassium (3.5-5.1) mEq/L Chloride (98-107) mEq/L Carbon Dioxide (21-32) mEq/L Anion Gap (5-15) BUN (7-18) mg/dL Creatinine (0.55-1.02) mg/dL Est Cr Clr Drug Dosing Estimated GFR (MDRD) (>60) mL/min BUN/Creatinine Ratio (14-18) Glucose (74-106) mg/dL POC Glucose (70-105) mg/dL Lactic Acid (0.4-2.0) mmol/L Calcium (8.5-10.1) mg/dL Magnesium (1.8-2.4) mg/dl Total Bilirubin (0.2-1.0) mg/dL AST (15-37) U/L ALT (14-59) U/L Alkaline Phosphatase (46-116) U/L Total Protein (6.4-8.2) g/dl Albumin (3.4-5.0) g/dl Globulin gm/dL Albumin/Globulin Ratio (1-2) Urine Color Yellow (Yellow) Urine Appearance Clear (Clear) Urine pH 6.5 (5.0-8.0) Ur Specific [place] > or = 1.030 (1.005-1.030) Urine Protein 2+ H (Negative) Urine Glucose (UA) Trace H (Negative) Urine Ketones Negative (Negative) Urine Occult Blood 1+ H (Negative) Urine Nitrite Negative (Negative) Urine Bilirubin Negative (Negative) Urine Urobilinogen 0.2 (0.2-1.0) Ur Leukocyte Esterase Negative (Negative) Urine HCG, Qual (NEGATIVE) Salicylates (2.8-20) mg/dL Urine Opiates Screen Negative (YWYXBY=258) Ur Buprenorphine Scrn Negative (CUTOFF=10) Ur Oxycodone Screen Negative (OGX6ZP=090) Urine Methadone Screen Negative (KRKYKB=923) Ur Propoxyphene Screen Negative (GSNATD=540) Acetaminophen (10-30) ug/mL Ur Barbiturates Screen Negative (HVPGVP=936) Ur Tricyclics Screen Negative (KPWLJL=981) Ur Phencyclidine Scrn Negative (CUTOFF=25) Ur Amphetamine Screen Negative (JNVJYO=891) U Methamphetamines Scrn Negative (MKJFKY=376) U Benzodiazepines Scrn Negative (YEOTJJ=031) U Cocaine Metab Screen Negative (NCAFIB=389) U Marijuana (THC) Screen Negative (CUTOFF=50) Ethyl Alcohol (0.00) gm% SARS-CoV-2 RNA (JAZLYN) Negative (NEGATIVE) 05/07/20 05/07/20 05/07/20 Range/Units 00:59 01:05 02:20 WBC (3.98-10.04) K/mm3 RBC (3.98-5.22) M/mm3 Hgb (11.2-15.7) gm/dl Hct (34.1-44.9) % MCV (79.4-94.8) fl MCH (25.6-32.2) pg MCHC (32.2-35.5) g/dl RDW Std Deviation (36.4-46.3) fL Plt Count (182-369) K/mm3 MPV (9.4-12.3) fl Neut % (Auto) (34.0-71.1) % Lymph % (Auto) (19.3-51.7) % [place] % (Auto) (4.7-12.5) % Eos % (Auto) (0.7-5.8) Baso % (Auto) (0.1-1.2) % Neut # (Auto) (1.56-6.13) K/mm3 Lymph # (Auto) (1.18-3.74) K/mm3 [place] # (Auto) (0.24-0.36) K/mm3 Eos # (Auto) (0.04-0.36) K/mm3 Baso # (Auto) (0.01-0.08) K/mm3 Manual Slide Review D-Dimer, Quantitative (0.19-0.50) mg/L Puncture Site Lt radial ABG pH 7.07 L* (7.35-7.45) ABG pCO2 91.8 H* (35.0-45.0) mmHg ABG pO2 215.0 H* (80.0-100.0) mmHg ABG HCO3 25.3 (22.0-26.0) meq/L ABG O2 Saturation 98.7 H (96.0-97.0) % ABG Base Excess -8.0 L (-2-2.0) A-a Gradient 26 mmHg O2 Delivery Device Ventilator FiO2 50.00 (21.00-100.00) % Tidal Volume 400.0 cc PEEP 5.0 cmH20 Blood Gas Comments Sodium (136-145) mEq/L Potassium (3.5-5.1) mEq/L Chloride (98-107) mEq/L Carbon Dioxide (21-32) mEq/L Anion Gap (5-15) BUN (7-18) mg/dL Creatinine (0.55-1.02) mg/dL Est Cr Clr Drug Dosing Estimated GFR (MDRD) (>60) mL/min BUN/Creatinine Ratio (14-18) Glucose (74-106) mg/dL POC Glucose (70-105) mg/dL Lactic Acid 2.7 H* (0.4-2.0) mmol/L Calcium (8.5-10.1) mg/dL Magnesium (1.8-2.4) mg/dl Total Bilirubin (0.2-1.0) mg/dL AST (15-37) U/L ALT (14-59) U/L Alkaline Phosphatase (46-116) U/L Total Protein (6.4-8.2) g/dl Albumin (3.4-5.0) g/dl Globulin gm/dL Albumin/Globulin Ratio (1-2) Urine Color (Yellow) Urine Appearance (Clear) Urine pH (5.0-8.0) Ur Specific [place] (1.005-1.030) Urine Protein (Negative) Urine Glucose (UA) (Negative) Urine Ketones (Negative) Urine Occult Blood (Negative) Urine Nitrite (Negative) Urine Bilirubin (Negative) Urine Urobilinogen (0.2-1.0) Ur Leukocyte Esterase (Negative) Urine HCG, Qual Negative (NEGATIVE) Salicylates (2.8-20) mg/dL Urine Opiates Screen (WBLVZU=876) Ur Buprenorphine Scrn (CUTOFF=10) Ur Oxycodone Screen (MGE4HF=851) Urine Methadone Screen (CWQJJE=951) Ur Propoxyphene Screen (WVGWNS=378) Acetaminophen (10-30) ug/mL Ur Barbiturates Screen (GCFYFK=448) Ur Tricyclics Screen (IVYLVA=458) Ur Phencyclidine Scrn (CUTOFF=25) Ur Amphetamine Screen (CJHNES=951) U Methamphetamines Scrn (JUUVOQ=921) U Benzodiazepines Scrn (BGKSMH=098) U Cocaine Metab Screen (YTBMGB=877) U Marijuana (THC) Screen (CUTOFF=50) Ethyl Alcohol (0.00) gm% SARS-CoV-2 RNA (JAZLYN) (NEGATIVE) 05/07/20 05/07/20 05/07/20 Range/Units 03:18 08:35 10:17 WBC (3.98-10.04) K/mm3 RBC (3.98-5.22) M/mm3 Hgb (11.2-15.7) gm/dl Hct (34.1-44.9) % MCV (79.4-94.8) fl MCH (25.6-32.2) pg MCHC (32.2-35.5) g/dl RDW Std Deviation (36.4-46.3) fL Plt Count (182-369) K/mm3 MPV (9.4-12.3) fl Neut % (Auto) (34.0-71.1) % Lymph % (Auto) (19.3-51.7) % [place] % (Auto) (4.7-12.5) % Eos % (Auto) (0.7-5.8) Baso % (Auto) (0.1-1.2) % Neut # (Auto) (1.56-6.13) K/mm3 Lymph # (Auto) (1.18-3.74) K/mm3 [place] # (Auto) (0.24-0.36) K/mm3 Eos # (Auto) (0.04-0.36) K/mm3 Baso # (Auto) (0.01-0.08) K/mm3 Manual Slide Review D-Dimer, Quantitative (0.19-0.50) mg/L Puncture Site Rt radial ABG pH 7.22 L (7.35-7.45) ABG pCO2 57.9 H (35.0-45.0) mmHg ABG pO2 43.0 L (80.0-100.0) mmHg ABG HCO3 22.7 (22.0-26.0) meq/L ABG O2 Saturation 56.0 L (96.0-97.0) % ABG Base Excess -5.4 L (-2-2.0) A-a Gradient 99 mmHg O2 Delivery Device Ventilator FiO2 30.00 (21.00-100.00) % Tidal Volume 550.0 cc PEEP 5.0 cmH20 Blood Gas Comments Md james mixed venou Sodium (136-145) mEq/L Potassium (3.5-5.1) mEq/L Chloride (98-107) mEq/L Carbon Dioxide (21-32) mEq/L Anion Gap (5-15) BUN (7-18) mg/dL Creatinine (0.55-1.02) mg/dL Est Cr Clr Drug Dosing Estimated GFR (MDRD) (>60) mL/min BUN/Creatinine Ratio (14-18) Glucose (74-106) mg/dL POC Glucose 261 H 220 H (70-105) mg/dL Lactic Acid (0.4-2.0) mmol/L Calcium (8.5-10.1) mg/dL Magnesium (1.8-2.4) mg/dl Total Bilirubin (0.2-1.0) mg/dL AST (15-37) U/L ALT (14-59) U/L Alkaline Phosphatase (46-116) U/L Total Protein (6.4-8.2) g/dl Albumin (3.4-5.0) g/dl Globulin gm/dL Albumin/Globulin Ratio (1-2) Urine Color (Yellow) Urine Appearance (Clear) Urine pH (5.0-8.0) Ur Specific [place] (1.005-1.030) Urine Protein (Negative) Urine Glucose (UA) (Negative) Urine Ketones (Negative) Urine Occult Blood (Negative) Urine Nitrite (Negative) Urine Bilirubin (Negative) Urine Urobilinogen (0.2-1.0) Ur Leukocyte Esterase (Negative) Urine HCG, Qual (NEGATIVE) Salicylates (2.8-20) mg/dL Urine Opiates Screen (DNRVWN=255) Ur Buprenorphine Scrn (CUTOFF=10) Ur Oxycodone Screen (SIJ8OK=968) Urine Methadone Screen (NZXHRX=824) Ur Propoxyphene Screen (VBKGFD=815) Acetaminophen (10-30) ug/mL Ur Barbiturates Screen (LXCKCP=729) Ur Tricyclics Screen (NXNHES=318) Ur Phencyclidine Scrn (CUTOFF=25) Ur Amphetamine Screen (VMMBMS=552) U Methamphetamines Scrn (CXGFSK=242) U Benzodiazepines Scrn (VPFQIC=739) U Cocaine Metab Screen (JLDPKW=585) U Marijuana (THC) Screen (CUTOFF=50) Ethyl Alcohol (0.00) gm% SARS-CoV-2 RNA (JAZLYN) (NEGATIVE) Result Diagrams: 05/07/20 00:32 05/07/20 00:32 [place] Results Last 24 hrs: Microbiology 05/07/20 02:32 Influenza Type A Antigen Screen - Final Nasopharyngeal Swab NEGATIVE INFLUENZA A VIRUS AG REFERENCE RANGE: NEGATIVE Influenza Type B Antigen Screen - Final NEGATIVE INFLUENZA B VIRUS AG REFERENCE RANGE: NEGATIVE Sepsis Event Note - Evaluation Sepsis Screening Result: No Definite Risk - Focused Exam Vital Signs: Vital Signs Temp Pulse Resp BP Pulse Ox Pulse Ox 05/07/20 01:23 100 05/07/20 01:09 36.2 C 122 H 8 L 144/125 H 74 L - Problem List (1) Acute respiratory failure SNOMED Code(s): 74754907 ICD Code: J96.00 - ACUTE RESPIRATORY FAILURE, UNSP W HYPOXIA OR HYPERCAPNIA Status: Acute Priority: High Current Visit: Yes Qualifiers: Respiratory failure complication: hypoxia Qualified Code(s): J96.01 - Acute respiratory failure with hypoxia (2) Asthma exacerbation SNOMED Code(s): 991280528 ICD Code: J45.901 - UNSPECIFIED ASTHMA WITH (ACUTE) EXACERBATION Status: Acute Priority: High Current Visit: Yes Qualifiers: Asthma severity: severe Asthma persistence: unspecified Qualified Code(s): J45.901 - Unspecified asthma with (acute) exacerbation (3) Diabetes mellitus type 1 SNOMED Code(s): 53357049 ICD Code: E10.9 - TYPE 1 DIABETES MELLITUS WITHOUT COMPLICATIONS Status: Chronic Priority: High Current Visit: Yes Onset Date: 11/09/14 Qualifiers: Diabetes mellitus complication status: without complication Qualified Code(s): E10.9 - Type 1 diabetes mellitus without complications Problem List Initiated/Reviewed/Updated: Yes Orders Last 24hrs: Active Orders 24 hr Category Date Time Status Accu Check [Blood Glucose Check, Bedside] [RC] ONETIME Care 05/07/20 01:01 Active Accu Check [Blood Glucose Check, Bedside] [RC] ONETIME Care 05/07/20 10:13 Active EKG Documentation Completion [RC] STAT Care 05/07/20 01:00 Active RT Aerosol Therapy [RC] ASDIRECTED Care 05/07/20 01:23 Active RT Aerosol Therapy [RC] ASDIRECTED Care 05/07/20 01:23 Active Chest 1V-Tube Placement Chk NC [CR] Stat Exams 05/07/20 00:33 Taken Midazolam [Versed 5 MG/ML] 100 mg Med 05/07/20 02:15 Active Sodium Chloride 0.9% [Normal Saline] 80 ml IV TITRATE Sodium Chloride 0.9% [Normal Saline] 1,000 ml Med 05/07/20 01:15 Active IV ASDIRECTED propofoL [Diprivan 100 ML] 100 ml Med 05/07/20 01:15 Active IV TITRATE Isolation [COMM] Routine Oth 05/07/20 01:36 Ordered Medication Orders Propofol (Diprivan 100 Ml) 100 mls @ 18 mls/hr IV TITRATE GUMARO; Protocol Last Admin: 05/07/20 03:56 Dose: 100 mcg/kg/min, 36 mls/hr Documented by: Titration: 05/07/20 03:56 Dose: 50 mcg/kg/min, 18 mls/hr Documented by: Admin: 05/07/20 01:20 Dose: 50 mcg/kg/min, 18 mls/hr Documented by: KATHYACOEndy Sodium Chloride (Normal Saline) 1,000 mls @ 150 mls/hr IV ASDIRECTED GUMARO Last Admin: 05/07/20 01:06 Dose: 150 mls/hr Documented by: KATHYACOEndy Midazolam HCl 100 mg/ Sodium (Chloride) 100 mls @ 6 mls/hr IV TITRATE GUMARO; Protocol Last Admin: 05/07/20 06:55 Dose: 0.2 mg/kg/hr, 12 mls/hr Documented by: [email or web address] Titration: 05/07/20 06:55 Dose: 0.1 mg/kg/hr, 6 mls/hr Documented by: Admin: 05/07/20 02:26 Dose: 0.1 mg/kg/hr, 6 mls/hr Documented by: [email or web address] Assessment/Plan Comment:: She was extubated successfully today. The patient had been in complete respiratory failure. I have elected to keep the patient in the intensive care unit to avoid any post extubation complications. I have ordered Solu-Medrol IV 125 mg every 8 hours to assist with her reactive asthma. The patient will also have albuterol and Atrovent nebulizers every 2 hours as needed for shortness of breath or wheezing. She is a diabetic and I have also ordered that the patient manage her own insulin pump. The patient will have an appropriate ADA diet. Repeat laboratory studies have been ordered. Patient should be appropriate for discharge tomorrow. She was Covid negative. - Mortality Measure Prognosis:: Good
[2020-05-07] MEDS ORDERED: oxyCODONE 5 MG Tab PO PRN (13:10)
[2020-05-07] MEDS ORDERED: Ondansetron 4 MG Tab.DIS PO PRN (13:10)
[2020-05-07] MEDS ORDERED: Acetaminophen 325 MG Tab PO PRN (13:10)
[2020-05-07] MEDS ORDERED: methylPREDNISolone Sodium Succinate 125 MG/2 ML SDV IVPUSH SCH (13:15)
[2020-05-07] MEDS ORDERED: Enoxaparin 30 MG/0.3 ML Syringe SUBCUT SCH (13:15)
[2020-05-07] MEDS: methylPREDNISolone Sodium Succinate 125 MG/2 ML SDV IVPUSH SCH (16:15)
[2020-05-07] MEDS: Enoxaparin 30 MG/0.3 ML Syringe SUBCUT SCH (16:15)
[2020-05-07] MEDS: Albuterol/Ipratropium 3.0-0.5 MG/3 ML Neb Soln NEB PRN (22:21)
[2020-05-08] MEDS: methylPREDNISolone Sodium Succinate 125 MG/2 ML SDV IVPUSH SCH ×3 (04:34→11:38)
[2020-05-08] MEDS ORDERED: Potassium Chloride 20 MEQ Tab.ER PO ONE (08:10)
[2020-05-08] MEDS: Albuterol/Ipratropium 3.0-0.5 MG/3 ML Neb Soln NEB PRN (08:34)
[2020-05-08] MEDS: Enoxaparin 30 MG/0.3 ML Syringe SUBCUT SCH (08:57)
--- NOTE | 2020-05-08 12:24 | PCM.DCSUM1 ---
<CandyMoncho M - Last Filed: 05/08/20 13:18> Discharge Summary - Hospital Course HPI Initial Comments: Patient is a 19-year-old lady who had presented to the emergency department in complete respiratory arrest. The patient does have a history of severe asthma. Patient says that her outpatient medications may not have been enough to prevent the episode. The patient reportedly had difficulty breathing to the point that she had collapsed stopped breathing and her mother had resuscitated her. The patient was in the emergency department and had been intubated. Later the next day the patient was successfully weaned and extubated. The patient says that she has never had anything like this happen to her before. The patient says that she is a type I diabetic and has an insulin pump. The patient currently feels tired and fatigued. She has denied any pain. She says that she is not short of breath. Patient also has denied any nausea or vomiting. Diagnosis: Stroke: No - Discharge Data Discharge Date: 05/08/20 (Admit date 05/07/2020) Discharge Disposition: Home, Self-Care 01 Condition: Good - Referral to Home Health Primary Care Physician: PCP None - Discharge Diagnosis/Problem(s) (1) Acute respiratory failure SNOMED Code(s): 57742299 ICD Code: J96.00 - ACUTE RESPIRATORY FAILURE, UNSP W HYPOXIA OR HYPERCAPNIA Status: Acute Priority: High Qualifiers: Respiratory failure complication: hypoxia Qualified Code(s): J96.01 - Acute respiratory failure with hypoxia (2) Asthma exacerbation SNOMED Code(s): 327288105 ICD Code: J45.901 - UNSPECIFIED ASTHMA WITH (ACUTE) EXACERBATION Status: Acute Priority: High Qualifiers: Asthma severity: severe Asthma persistence: unspecified Qualified Code(s): J45.901 - Unspecified asthma with (acute) exacerbation (3) Diabetes mellitus type 1 SNOMED Code(s): 83634132 ICD Code: E10.9 - TYPE 1 DIABETES MELLITUS WITHOUT COMPLICATIONS Status: Chronic Priority: High Onset Date: 11/09/14 Qualifiers: Diabetes mellitus complication status: without complication Qualified Code(s): E10.9 - Type 1 diabetes mellitus without complications - Patient Summary/Data Hospital Course: The patient was admitted through the emergency department for an acute exacerbation of asthma and respiratory failure. She was intubated in the ER and once stabilized extubated in the ER. Then admitted to ICU for continuous monitoring IV Solu-Medrol and albuterol nebulizer treatments. She is an insulin-dependent diabetic and she has her own insulin pump. Since being on the IV Solu-Medrol, her blood sugars have been elevated and she has been covering these on her own with her insulin pump boluses. Vital signs are stable. He has not had a fever and she is no longer tachycardic. 97% on room air. She will be discharged to home today with follow-up appointment scheduled with her primary care provider on Wednesday. I have ordered a new home nebulizer for her as her mother does not feel like this 1 is working as it is between 10 and 12 years old. She has been working with the burner operator at [facility] and will continue to do so upon discharge to monitor high blood sugars. She will be sent home on a Medrol Dosepak. We also recommend she follow-up with pulmonology and this will be scheduled as well. She will be sent home with albuterol nebulizer treatments every 4 hours as needed for shortness of breath and wheezing Tamra Israel is to follow-up with any further orders. - Patient Instructions Diet: Diabetic Diet Activity: As Tolerated - Discharge Plan *PRESCRIPTION DRUG MONITORING PROGRAM REVIEWED*: Not Applicable *COPY OF PRESCRIPTION DRUG MONITORING REPORT IN PATIENT CARLOS ALBERTO: Not Applicable Prescriptions/Med Rec: methylPREDNISolone [Medrol Dose Pack] 4 mg PO ASDIRECTED #1 dospk Albuterol [Proventil Neb Soln] 2.5 mg NEB Q4HR PRN #30 ampule PRN Reason: Dyspnea Home Medications: Home Meds Singulair. 10 mg PO DAILY 10/09/14 [History] Zyrtec. 10 mg PO DAILY 10/09/14 [History] Albuterol [Proair HFA] 1 - 2 puff INH ASDIRECTED PRN 01/17/15 [History] Insulin Aspart [NovoLOG] 0 unit SUBCUT .PHARMACY TO DOSE 01/17/15 [History] Pantoprazole [ProTONIX] 40 mg PO BEDTIME PRN 01/17/15 [History] Inhaler, Assist Devices [Space Chamber Plus] 1 each MC ASDIRECTED #1 spacer 06/07/16 [Rx] Advair Inhaler. 1 puff INH BID 10/08/17 [History] Albuterol [Proventil Neb Soln] 2.5 mg NEB Q4HR PRN #30 ampule 05/08/20 [Rx] methylPREDNISolone [Medrol Dose Pack] 4 mg PO ASDIRECTED #1 dospk 05/08/20 [Rx] Oxygen Therapy Mode: Room Air Patient Handouts: Type 1 Diabetes Mellitus, Self Care, Adult Forms: ED Department Discharge Referrals: Michell Israel NP [Ordering Only Provider] - 05/10/20 3:30 pm Pepe Hui MD [Ordering Only Provider] - 06/19/20 10:00 am (Appointment with Dr. Hui Pulmonshahida in [place] @ 1000 AM on WednesdayJune 19 [employer]OR for follow hospital stay.) - Discharge Summary/Plan Comment DC Time >30 min.: Yes (Scheduling follow-up appointments) - General Info Date of Service: 05/08/20 (Admit date 05/07/2020) Functional Status: Reports: Pain Controlled, Tolerating Diet - Review of Systems General: Reports: No Symptoms HEENT: Reports: Sore Throat (Due to intubation) Pulmonary: Reports: Wheezing (Fine expiratory wheeze noted) Cardiovascular: Reports: No Symptoms Gastrointestinal: Reports: No Symptoms Genitourinary: Reports: No Symptoms Musculoskeletal: Reports: No Symptoms Skin: Reports: No Symptoms Neurological: Reports: No Symptoms Psychiatric: Reports: No Symptoms - Patient Data Vitals - Most Recent: Last Vital Signs Temp 98 F 05/08/20 08:00 Pulse 122 H 05/07/20 01:09 Resp 19 05/08/20 08:00 BP 112/64 05/08/20 08:00 Pulse Ox 96 05/08/20 08:34 Weight - Most Recent: 68.3 kg I&O - Last 24 hours: Intake & Output 05/07/20 05/08/20 05/08/20 22:59 06:59 14:59 Intake Total 654 1000 Output Total 600 Balance 54 1000 Lab Results - Last 24 hrs: Laboratory Results - last 24 hr 05/07/20 05/07/20 05/08/20 Range/Units 17:21 22:16 05:12 WBC 14.93 H (3.98-10.04) K/mm3 RBC 4.25 (3.98-5.22) M/mm3 Hgb 12.3 D (11.2-15.7) gm/dl Hct 37.9 (34.1-44.9) % MCV 89.2 (79.4-94.8) fl MCH 28.9 (25.6-32.2) pg MCHC 32.5 (32.2-35.5) g/dl RDW Std Deviation 39.9 (36.4-46.3) fL Plt Count 427 H D (182-369) K/mm3 MPV 8.9 L (9.4-12.3) fl Neut % (Auto) 85.5 H (34.0-71.1) % Lymph % (Auto) 7.6 L (19.3-51.7) % Mcleod % (Auto) 6.8 (4.7-12.5) % Eos % (Auto) 0 L (0.7-5.8) Baso % (Auto) 0.0 L (0.1-1.2) % Neut # (Auto) 12.76 H (1.56-6.13) K/mm3 Lymph # (Auto) 1.13 L (1.18-3.74) K/mm3 Mcleod # (Auto) 1.02 H (0.24-0.36) K/mm3 Eos # (Auto) 0.00 L (0.04-0.36) K/mm3 Baso # (Auto) 0.00 L (0.01-0.08) K/mm3 Manual Slide Review Normal smear Sodium (136-145) mEq/L Potassium (3.5-5.1) mEq/L Chloride (98-107) mEq/L Carbon Dioxide (21-32) mEq/L Anion Gap (5-15) BUN (7-18) mg/dL Creatinine (0.55-1.02) mg/dL Est Cr Clr Drug Dosing mL/min Estimated GFR (MDRD) (>60) mL/min BUN/Creatinine Ratio (14-18) Glucose (74-106) mg/dL POC Glucose 205 H 307 H (70-105) mg/dL Lactic Acid (0.4-2.0) mmol/L Calcium (8.5-10.1) mg/dL 05/08/20 05/08/20 05/08/20 Range/Units 05:12 08:16 11:38 WBC (3.98-10.04) K/mm3 RBC (3.98-5.22) M/mm3 Hgb (11.2-15.7) gm/dl Hct (34.1-44.9) % MCV (79.4-94.8) fl MCH (25.6-32.2) pg MCHC (32.2-35.5) g/dl RDW Std Deviation (36.4-46.3) fL Plt Count (182-369) K/mm3 MPV (9.4-12.3) fl Neut % (Auto) (34.0-71.1) % Lymph % (Auto) (19.3-51.7) % Mcleod % (Auto) (4.7-12.5) % Eos % (Auto) (0.7-5.8) Baso % (Auto) (0.1-1.2) % Neut # (Auto) (1.56-6.13) K/mm3 Lymph # (Auto) (1.18-3.74) K/mm3 Mcleod # (Auto) (0.24-0.36) K/mm3 Eos # (Auto) (0.04-0.36) K/mm3 Baso # (Auto) (0.01-0.08) K/mm3 Manual Slide Review Sodium 139 (136-145) mEq/L Potassium 3.6 (3.5-5.1) mEq/L Chloride 107 (98-107) mEq/L Carbon Dioxide 19 L (21-32) mEq/L Anion Gap 16.6 H (5-15) BUN 13 (7-18) mg/dL Creatinine 0.7 (0.55-1.02) mg/dL Est Cr Clr Drug Dosing 125.70 mL/min Estimated GFR (MDRD) > 60 (>60) mL/min BUN/Creatinine Ratio 18.6 H (14-18) Glucose 161 H (74-106) mg/dL POC Glucose 142 H (70-105) mg/dL Lactic Acid 0.9 (0.4-2.0) mmol/L Calcium 8.0 L (8.5-10.1) mg/dL Med Orders - Current: Current Medications Acetaminophen (Tylenol) 650 mg PO Q4H PRN PRN Reason: Pain (Mild 1-3)/fever Albuterol/Ipratropium (Duoneb 3.0-0.5 Mg/3 Ml) 3 ml NEB Q4H PRN PRN Reason: Shortness Of Breath/wheezing Last Admin: 05/08/20 08:34 Dose: 3 ml Documented by: Enoxaparin Sodium (Lovenox) 30 mg SUBCUT DAILY [facility] Last Admin: 05/08/20 08:57 Dose: 30 mg Documented by: Sodium Chloride (Normal Saline) 1,000 mls @ 80 mls/hr IV ASDIRECTED [facility] Last Admin: 05/07/20 16:16 Dose: 80 mls/hr Documented by: Methylprednisolone Sodium Succinate (Solu-Medrol) 125 mg IVPUSH Q8H [facility] Last Admin: 05/08/20 11:38 Dose: 125 mg Documented by: Ondansetron HCl (Zofran Odt) 4 mg PO Q4H PRN PRN Reason: nausea, able to take PO Oxycodone HCl (Oxycodone) 5 mg PO Q4H PRN PRN Reason: Pain (moderate 4-6) Discontinued Medications Albuterol (Proventil Neb Soln) Confirm Administered Dose 2.5 mg .ROUTE .STK-MED ONE Stop: 05/07/20 00:46 Last Admin: 05/07/20 01:30 Dose: Not Given Documented by: Albuterol (Proventil Neb Soln) Confirm Administered Dose 2.5 mg .ROUTE .STK-MED ONE Stop: 05/07/20 00:46 Last Admin: 05/07/20 01:30 Dose: Not Given Documented by: Albuterol (Proventil Neb Soln) 2.5 mg NEB ONETIME ONE Stop: 05/07/20 01:24 Last Admin: 05/07/20 01:39 Dose: 2.5 mg Documented by: Albuterol (Proventil Neb Soln) 2.5 mg NEB ONETIME ONE Stop: 05/07/20 01:24 Last Admin: 05/07/20 00:45 Dose: 2.5 mg Documented by: Enoxaparin Sodium (Lovenox) 30 mg SUBCUT DAILY [facility] Last Admin: 05/07/20 16:19 Dose: Not Given Documented by: Propofol (Diprivan 100 Ml) Confirm Administered Dose 100 mls @ as directed .ROUTE .STK-MED ONE Stop: 05/07/20 00:52 Last Admin: 05/07/20 01:12 Dose: Not Given Documented by: Propofol (Diprivan 100 Ml) 100 mls @ 18 mls/hr IV TITRATE [facility]; Protocol Last Admin: 05/07/20 03:56 Dose: 100 mcg/kg/min, 36 mls/hr Documented by: Sodium Chloride (Normal Saline) 1,000 mls @ 150 mls/hr IV ASDIRECTED [facility] Last Admin: 05/07/20 01:06 Dose: 150 mls/hr Documented by: Midazolam HCl 100 mg/ Sodium (Chloride) 100 mls @ 6 mls/hr IV TITRATE [facility]; Protocol Last Admin: 05/07/20 06:55 Dose: 0.2 mg/kg/hr, 12 mls/hr Documented by: Sodium Chloride (Normal Saline) Confirm Administered Dose 50 mls @ as directed .ROUTE .STK-MED ONE Stop: 05/07/20 02:15 Last Admin: 05/07/20 02:23 Dose: Not Given Documented by: Lorazepam (Ativan) 1 mg IVPUSH ONETIME STA Stop: 05/07/20 02:01 Last Admin: 05/07/20 02:10 Dose: 1 mg Documented by: Lorazepam (Ativan) Confirm Administered Dose 2 mg .ROUTE .STK-MED ONE Stop: 05/07/20 02:01 Last Admin: 05/07/20 02:23 Dose: Not Given Documented by: Lorazepam (Ativan) 1 mg IVPUSH ONETIME STA Stop: 05/07/20 02:14 Last Admin: 05/07/20 02:02 Dose: 1 mg Documented by: Methylprednisolone Sodium Succinate (Solu-Medrol) 125 mg IVPUSH ONETIME ONE Stop: 05/07/20 01:23 Last Admin: 05/07/20 01:32 Dose: 125 mg Documented by: Methylprednisolone Sodium Succinate (Solu-Medrol) 125 mg IVPUSH Q8H [facility] Last Admin: 05/07/20 16:19 Dose: Not Given Documented by: Methylprednisolone Sodium Succinate (Solu-Medrol) 125 mg IVPUSH Q8H [facility] Last Admin: 05/08/20 07:04 Dose: Not Given Documented by: Midazolam HCl (Versed 5 Mg/Ml) Confirm Administered Dose 50 mg .ROUTE .STK-MED ONE Stop: 05/07/20 02:14 Last Admin: 05/07/20 02:23 Dose: Not Given Documented by: Naloxone HCl (Narcan) 2 mg IVPUSH ONETIME ONE Stop: 05/07/20 01:04 Last Admin: 05/07/20 01:07 Dose: 2 mg Documented by: Potassium Chloride (Klor-Con M20) 40 meq PO ONETIME ONE Stop: 05/08/20 08:11 Last Admin: 05/08/20 08:57 Dose: 40 meq Documented by: Propofol (Diprivan 20 Ml) 40 mg IVPUSH ONETIME ONE Stop: 05/07/20 01:04 Last Admin: 05/07/20 01:21 Dose: 40 mg Documented by: Rocuronium [place] (Zemuron) 60 mg IVPUSH ONETIME ONE Stop: 05/07/20 01:04 Last Admin: 05/07/20 01:08 Dose: 60 mg Documented by: - Exam Quality Assessment: Denies: Supplemental Oxygen General: Reports: Alert, Oriented, Cooperative, No Acute Distress, Other (States that she just feels tired.) HEENT: Reports: Pupils Equal, Pupils Reactive, Mucous Membr. Moist/[place] Neck: Reports: Supple, Trachea Midline. Denies: Lymphadenopathy Lungs: Reports: Wheezing (Fine expiratory wheeze noted bilaterally) Cardiovascular: Reports: Regular Rate, Regular Rhythm GI/Abdominal Exam: Normal Bowel Sounds, Soft, Non-Tender (Female) Exam: Deferred Rectal (Female) Exam: Deferred Back Exam: Reports: Normal Inspection, Full Range of Motion Extremities: Normal Inspection, Normal Range of Motion, Non-Tender, No Pedal Edema, Normal Capillary Refill Skin: Reports: Warm, Dry, Intact Neurological: Reports: No New Focal Deficit Psy/Mental Status: Reports: Alert, Normal Affect, Normal Mood <Jakub Benson - Last Filed: 05/08/20 15:52> Discharge Summary - Referral to Home Health Primary Care Physician: PCP None - Discharge Diagnosis/Problem(s) (1) Acute respiratory failure SNOMED Code(s): 50769410 ICD Code: J96.00 - ACUTE RESPIRATORY FAILURE, UNSP W HYPOXIA OR HYPERCAPNIA Status: Acute Priority: High Qualifiers: Respiratory failure complication: hypoxia Qualified Code(s): J96.01 - Acute respiratory failure with hypoxia (2) Asthma exacerbation SNOMED Code(s): 077177634 ICD Code: J45.901 - UNSPECIFIED ASTHMA WITH (ACUTE) EXACERBATION Status: Acute Priority: High Qualifiers: Asthma severity: severe Asthma persistence: unspecified Qualified Code(s): J45.901 - Unspecified asthma with (acute) exacerbation (3) Diabetes mellitus type 1 SNOMED Code(s): 96206865 ICD Code: E10.9 - TYPE 1 DIABETES MELLITUS WITHOUT COMPLICATIONS Status: Chronic Priority: High Onset Date: 11/09/14 Qualifiers: Diabetes mellitus complication status: without complication Qualified Code(s): E10.9 - Type 1 diabetes mellitus without complications - Patient Summary/Data Hospital Course: I have seen and examined the patient independent of nurse practitioner Moncho Gupta and I have discussed the case with her. I have reviewed and agree with the assessment and plan as outlined for this patient by her. Please see orders. - Patient Data Vitals - Most Recent: Last Vital Signs Temp 36.6 C 05/08/20 08:00 Pulse 122 H 05/07/20 01:09 Resp 19 05/08/20 12:00 BP 110/62 05/08/20 12:00 Pulse Ox 97 05/08/20 12:00 I&O - Last 24 hours: Intake & Output 05/08/20 05/08/20 05/08/20 06:59 14:59 22:59 Intake Total 1000 Balance 1000 Lab Results - Last 24 hrs: Laboratory Results - last 24 hr 05/07/20 05/07/20 05/08/20 Range/Units 17:21 22:16 05:12 WBC 14.93 H (3.98-10.04) K/mm3 RBC 4.25 (3.98-5.22) M/mm3 Hgb 12.3 D (11.2-15.7) gm/dl Hct 37.9 (34.1-44.9) % MCV 89.2 (79.4-94.8) fl MCH 28.9 (25.6-32.2) pg MCHC 32.5 (32.2-35.5) g/dl RDW Std Deviation 39.9 (36.4-46.3) fL Plt Count 427 H D (182-369) K/mm3 MPV 8.9 L (9.4-12.3) fl Neut % (Auto) 85.5 H (34.0-71.1) % Lymph % (Auto) 7.6 L (19.3-51.7) % Mcleod % (Auto) 6.8 (4.7-12.5) % Eos % (Auto) 0 L (0.7-5.8) Baso % (Auto) 0.0 L (0.1-1.2) % Neut # (Auto) 12.76 H (1.56-6.13) K/mm3 Lymph # (Auto) 1.13 L (1.18-3.74) K/mm3 Mcleod # (Auto) 1.02 H (0.24-0.36) K/mm3 Eos # (Auto) 0.00 L (0.04-0.36) K/mm3 Baso # (Auto) 0.00 L (0.01-0.08) K/mm3 Manual Slide Review Normal smear Sodium (136-145) mEq/L Potassium (3.5-5.1) mEq/L Chloride (98-107) mEq/L Carbon Dioxide (21-32) mEq/L Anion Gap (5-15) BUN (7-18) mg/dL Creatinine (0.55-1.02) mg/dL Est Cr Clr Drug Dosing mL/min Estimated GFR (MDRD) (>60) mL/min BUN/Creatinine Ratio (14-18) Glucose (74-106) mg/dL POC Glucose 205 H 307 H (70-105) mg/dL Lactic Acid (0.4-2.0) mmol/L Calcium (8.5-10.1) mg/dL 05/08/20 05/08/20 05/08/20 Range/Units 05:12 08:16 11:38 WBC (3.98-10.04) K/mm3 RBC (3.98-5.22) M/mm3 Hgb (11.2-15.7) gm/dl Hct (34.1-44.9) % MCV (79.4-94.8) fl MCH (25.6-32.2) pg MCHC (32.2-35.5) g/dl RDW Std Deviation (36.4-46.3) fL Plt Count (182-369) K/mm3 MPV (9.4-12.3) fl Neut % (Auto) (34.0-71.1) % Lymph % (Auto) (19.3-51.7) % Mcleod % (Auto) (4.7-12.5) % Eos % (Auto) (0.7-5.8) Baso % (Auto) (0.1-1.2) % Neut # (Auto) (1.56-6.13) K/mm3 Lymph # (Auto) (1.18-3.74) K/mm3 Mcleod # (Auto) (0.24-0.36) K/mm3 Eos # (Auto) (0.04-0.36) K/mm3 Baso # (Auto) (0.01-0.08) K/mm3 Manual Slide Review Sodium 139 (136-145) mEq/L Potassium 3.6 (3.5-5.1) mEq/L Chloride 107 (98-107) mEq/L Carbon Dioxide 19 L (21-32) mEq/L Anion Gap 16.6 H (5-15) BUN 13 (7-18) mg/dL Creatinine 0.7 (0.55-1.02) mg/dL Est Cr Clr Drug Dosing 125.70 mL/min Estimated GFR (MDRD) > 60 (>60) mL/min BUN/Creatinine Ratio 18.6 H (14-18) Glucose 161 H (74-106) mg/dL POC Glucose 142 H (70-105) mg/dL Lactic Acid 0.9 (0.4-2.0) mmol/L Calcium 8.0 L (8.5-10.1) mg/dL Med Orders - Current: Current Medications Discontinued Medications Acetaminophen (Tylenol) 650 mg PO Q4H PRN PRN Reason: Pain (Mild 1-3)/fever Albuterol (Proventil Neb Soln) Confirm Administered Dose 2.5 mg .ROUTE .STK-MED ONE Stop: 05/07/20 00:46 Last Admin: 05/07/20 01:30 Dose: Not Given Documented by: Albuterol (Proventil Neb Soln) Confirm Administered Dose 2.5 mg .ROUTE .STK-MED ONE Stop: 05/07/20 00:46 Last Admin: 05/07/20 01:30 Dose: Not Given Documented by: Albuterol (Proventil Neb Soln) 2.5 mg NEB ONETIME ONE Stop: 10/13/20 01:24 Last Admin: 05/07/20 01:39 Dose: 2.5 mg Documented by: Albuterol (Proventil Neb Soln) 2.5 mg NEB ONETIME ONE Stop: 05/07/20 01:24 Last Admin: 05/07/20 00:45 Dose: 2.5 mg Documented by: Albuterol/Ipratropium (Duoneb 3.0-0.5 Mg/3 Ml) 3 ml NEB Q4H PRN PRN Reason: Shortness Of Breath/wheezing Last Admin: 05/08/20 08:34 Dose: 3 ml Documented by: Enoxaparin Sodium (Lovenox) 30 mg SUBCUT DAILY [facility] Last Admin: 05/07/20 16:19 Dose: Not Given Documented by: Enoxaparin Sodium (Lovenox) 30 mg SUBCUT DAILY [facility] Last Admin: 05/08/20 08:57 Dose: 30 mg Documented by: Propofol (Diprivan 100 Ml) Confirm Administered Dose 100 mls @ as directed .ROUTE .STK-MED ONE Stop: 05/07/20 00:52 Last Admin: 05/07/20 01:12 Dose: Not Given Documented by: Propofol (Diprivan 100 Ml) 100 mls @ 18 mls/hr IV TITRATE [facility]; Protocol Last Admin: 05/07/20 03:56 Dose: 100 mcg/kg/min, 36 mls/hr Documented by: Sodium Chloride (Normal Saline) 1,000 mls @ 150 mls/hr IV ASDIRECTED [facility] Last Admin: 05/07/20 01:06 Dose: 150 mls/hr Documented by: Midazolam HCl 100 mg/ Sodium (Chloride) 100 mls @ 6 mls/hr IV TITRATE [facility]; Protocol Last Admin: 05/07/20 06:55 Dose: 0.2 mg/kg/hr, 12 mls/hr Documented by: Sodium Chloride (Normal Saline) Confirm Administered Dose 50 mls @ as directed .ROUTE .STK-MED ONE Stop: 05/07/20 02:15 Last Admin: 05/07/20 02:23 Dose: Not Given Documented by: Sodium Chloride (Normal Saline) 1,000 mls @ 80 mls/hr IV ASDIRECTED [facility] Last Admin: 05/07/20 16:16 Dose: 80 mls/hr Documented by: Lorazepam (Ativan) 1 mg IVPUSH ONETIME STA Stop: 05/07/20 02:01 Last Admin: 05/07/20 02:10 Dose: 1 mg Documented by: Lorazepam (Ativan) Confirm Administered Dose 2 mg .ROUTE .STK-MED ONE Stop: 05/07/20 02:01 Last Admin: 05/07/20 02:23 Dose: Not Given Documented by: Lorazepam (Ativan) 1 mg IVPUSH ONETIME STA Stop: 05/07/20 02:14 Last Admin: 05/07/20 02:02 Dose: 1 mg Documented by: Methylprednisolone Sodium Succinate (Solu-Medrol) 125 mg IVPUSH ONETIME ONE Stop: 05/07/20 01:23 Last Admin: 05/07/20 01:32 Dose: 125 mg Documented by: Methylprednisolone Sodium Succinate (Solu-Medrol) 125 mg IVPUSH Q8H [facility] Last Admin: 05/07/20 16:19 Dose: Not Given Documented by: Methylprednisolone Sodium Succinate (Solu-Medrol) 125 mg IVPUSH Q8H [facility] Last Admin: 05/08/20 07:04 Dose: Not Given Documented by: Methylprednisolone Sodium Succinate (Solu-Medrol) 125 mg IVPUSH Q8H [facility] Last Admin: 05/08/20 11:38 Dose: 125 mg Documented by: Midazolam HCl (Versed 5 Mg/Ml) Confirm Administered Dose 50 mg .ROUTE .STK-MED ONE Stop: 05/07/20 02:14 Last Admin: 05/07/20 02:23 Dose: Not Given Documented by: Naloxone HCl (Narcan) 2 mg IVPUSH ONETIME ONE Stop: 05/07/20 01:04 Last Admin: 05/07/20 01:07 Dose: 2 mg Documented by: Ondansetron HCl (Zofran Odt) 4 mg PO Q4H PRN PRN Reason: nausea, able to take PO Oxycodone HCl (Oxycodone) 5 mg PO Q4H PRN PRN Reason: Pain (moderate 4-6) Potassium Chloride (Klor-Con M20) 40 meq PO ONETIME ONE Stop: 05/08/20 08:11 Last Admin: 05/08/20 08:57 Dose: 40 meq Documented by: Propofol (Diprivan 20 Ml) 40 mg IVPUSH ONETIME ONE Stop: 05/07/20 01:04 Last Admin: 05/07/20 01:21 Dose: 40 mg Documented by: Rocuronium [place] (Zemuron) 60 mg IVPUSH ONETIME ONE Stop: 05/07/20 01:04 Last Admin: 05/07/20 01:08 Dose: 60 mg Documented by:
[2020-05-08 13:02] VITALS: BP 110/62
== END 2020-05-08 13:54 | disposition home or self-care (01) ==
LOC: JD.ED 00:29 → JD.ICU 13:10
PROVIDERS: ADMIT Internal Medicine; ATTEND Internal Medicine
DX: J45.901 Unspecified asthma with (acute) exacerbation (principal); F41.9 Anxiety disorder, unspecified; E10.9 Type 1 diabetes mellitus without complications; K21.9 Gastro-esophageal reflux disease without esophagitis; J96.00 Acute respiratory failure, unspecified whether with hypoxia or hypercapnia; Z79.4 Long term (current) use of insulin; Z20.828 Contact with and (suspected) exposure to other viral communicable diseases; Z88.0 Allergy status to penicillin; Z91.048 Other nonmedicinal substance allergy status; Z79.899 Other long term (current) drug therapy
CPT/HCPCS: 31500; 36415; 36600; 43752; 51702; 80048; 80053; 80306; 80307; 81003; 81025; 82803; 82962; 83605; 83735; 85025; 85379; 87804; 93005; 93010; 94640; 96361; 96372; 96374; 96375; 96376; 99152; 99153; 99285; 99285-25; A9270-GY; G0378; J1650; J2060; J2250; J2310; J2704; J2930; J7030; J7620-GY; U0002

== ENCOUNTER 2020-10-21 10:12 | Emergency (ER) | payer BC ==
[2020-10-21 10:22] VITALS: BP 154/137; PULSE 128
[2020-10-21] MEDS ORDERED: Albuterol 0.5% 2.5 MG/0.5 ML Neb Soln ONE (10:22)
[2020-10-21] MEDS ORDERED: Sodium Chloride 0.9% 10 ML Syringe FLUSH PRN (10:23)
[2020-10-21] MEDS ORDERED: methylPREDNISolone Sodium Succinate 125 MG/2 ML SDV IVPUSH ONE (10:24)
[2020-10-21] MEDS ORDERED: Albuterol 0.083% 2.5 MG/3 ML Neb Soln ONE (10:29)
[2020-10-21] MEDS ORDERED: Albuterol/Ipratropium 3.0-0.5 MG/3 ML Neb Soln NEB ONE (10:37)
--- NOTE | 2020-10-21 10:59 | EDM.PDOC ---
ED HPI GENERAL MEDICAL PROBLEM - General Chief Complaint: Asthma Stated Complaint: ASTHMA ATTACK Time Seen by Provider: 10/21/20 10:20 Source of Information: Reports: Patient History Limitations: Reports: No Limitations - History of Present Illness INITIAL COMMENTS - FREE TEXT/NARRATIVE: The patient presents with her mother for shortness of breath and wheezing. This started this morning at 9am. She ran out of her inhaler because she has been using it more. She has a cough with the wheezing. She has no fever or chills. She has no chest pain, abdominal pain, nausea or vomiting. She does not smoke. She has asthma and she sees a photographic technician. Mom says since April she has been getting more exacerbations. I asked if she had COVID then and they did not think so. She was tested about that time but it was negative. She is also type I diabetic. Onset: Sudden Duration: Hour(s): Severity: Moderate Improves with: Reports: None Worsens with: Reports: None Associated Symptoms: Reports: Cough, Shortness of Breath. Denies: Chest Pain, Fever/Chills, Headaches, Nausea/Vomiting - Related Data Allergies Allergy/AdvReac Type Severity Reaction Status Date / Time Penicillins Allergy Intermediate Rash Verified 10/21/20 10:21 adhesive tape Allergy Rash Verified 10/21/20 10:21 anjelica Allergy Difficulty Verified 10/21/20 10:21 Breathing Home Meds: Home Meds Singulair. 10 mg PO DAILY 10/09/14 [History] Zyrtec. 10 mg PO DAILY 10/09/14 [History] Albuterol [Proair HFA] 1 - 2 puff INH ASDIRECTED PRN 01/17/15 [History] Insulin Aspart [NovoLOG] 0 unit SUBCUT .PHARMACY TO DOSE 01/17/15 [History] Pantoprazole [ProTONIX] 40 mg PO BEDTIME PRN 01/17/15 [History] Inhaler, Assist Devices [Space Chamber Plus] 1 each ASDIRECTED #1 spacer 06/07/16 [Rx] Advair Inhaler. 1 puff INH BID 05/02/17 [History] Albuterol [Proventil Neb Soln] 2.5 mg NEB Q4HR PRN #30 ampule 05/08/20 [Rx] methylPREDNISolone [Medrol Dose Pack] 4 mg PO ASDIRECTED #1 dospk 05/08/20 [Rx] predniSONE [Prednisone] 40 mg PO DAILY #10 tablet 10/21/20 [Rx] Past Medical History HEENT History: Reports: Allergic Rhinitis Other HEENT History: allergies Cardiovascular History: Reports: None Respiratory History: Reports: Asthma Gastrointestinal History: Reports: GERD Genitourinary History: Reports: None Psychiatric History: Reports: Anxiety Endocrine/Metabolic History: Reports: Diabetes, Type I, Other (See Below) Other Endocrine/Metabolic History: with insulin pump Dermatologic History: Reports: Eczema Other Dermatologic History: none Social & Family History - Tobacco Use Tobacco Use Status *Q: Never Tobacco User Second Hand Smoke Exposure: No - Caffeine Use Caffeine Use: Reports: Soda - Recreational Drug Use Recreational Drug Use: No - Living Situation & Occupation Living situation: Reports: Single, with Family Occupation: Student (12th grade) ED ROS GENERAL - Review of Systems Review Of Systems: See Below Constitutional: Reports: No Symptoms HEENT: Reports: No Symptoms Respiratory: Reports: Shortness of Breath, Wheezing, Cough Cardiovascular: Reports: No Symptoms Endocrine: Reports: No Symptoms GI/Abdominal: Reports: No Symptoms : Reports: No Symptoms Musculoskeletal: Reports: No Symptoms ED EXAM, GENERAL - Physical Exam Exam: See Below Exam Limited By: No Limitations General Appearance: Alert, Mild Distress Ears: Normal External Exam Nose: Normal Inspection Head: Atraumatic, Normocephalic Neck: Normal Inspection Respiratory/Chest: Respiratory Distress (Mild), Decreased Breath Sounds, Wheezing Cardiovascular: Regular Rate, Rhythm, No Edema, No Murmur GI/Abdominal: Soft, Non-Tender, No Organomegaly, No Mass Back Exam: Normal Inspection Extremities: Normal Inspection Course - Vital Signs Last Recorded V/S: Last Vital Signs Temp 97.6 F 10/21/20 10:19 Pulse 128 H 10/21/20 10:19 Resp 26 H 10/21/20 10:19 BP 154/137 H 10/21/20 10:19 Pulse Ox 98 10/21/20 11:28 - Orders/Labs/Meds Orders: Active Orders 24 hr Category Date Time Status Cardiac Monitoring [RC] . DIRECTED Care 10/21/20 10:24 Active Oxygen Therapy Adult [Oxygen Therapy, ED] [RC] Care 10/21/20 10:25 Active ASDIRECTED Peripheral IV Care [RC] . DIRECTED Care 10/21/20 10:24 Active RT Aerosol Therapy [RC] ASDIRECTED Care 10/21/20 10:37 Active RT Aerosol Therapy [RC] ASDIRECTED Care 10/21/20 11:15 Active Sodium Chloride 0.9% [Saline Flush] Med 10/21/20 10:23 Active 10 ml FLUSH ASDIRECTED PRN Peripheral IV Insertion Adult [OM.PC] Stat Oth 10/21/20 10:23 Ordered Medication Orders Sodium Chloride (Sodium Chloride 0.9% 10 Ml Syringe) 10 ml FLUSH ASDIRECTED PRN PRN Reason: Keep Vein Open Last Admin: 10/21/20 10:45 Dose: 10 ml Documented by: AARON Labs: Laboratory Tests 10/21/20 10/21/20 10/21/20 Range/Units 10:20 10:20 10:45 WBC 10.13 H (3.98-10.04) K/mm3 RBC 5.22 (3.98-5.22) M/mm3 Hgb 15.1 D (11.2-15.7) gm/dl Hct 44.8 (34.1-44.9) % MCV 85.8 D (79.4-94.8) fl MCH 28.9 (25.6-32.2) pg MCHC 33.7 (32.2-35.5) g/dl RDW Std Deviation 38.0 (36.4-46.3) fL Plt Count 523 H D (182-369) K/mm3 MPV 9.1 L (9.4-12.3) fl Neut % (Auto) 53.2 (34.0-71.1) % Lymph % (Auto) 20.1 (19.3-51.7) % Traill % (Auto) 7.1 (4.7-12.5) % Eos % (Auto) 19.1 H (0.7-5.8) Baso % (Auto) 0.4 (0.1-1.2) % Neut # (Auto) 5.39 (1.56-6.13) K/mm3 Lymph # (Auto) 2.04 (1.18-3.74) K/mm3 Traill # (Auto) 0.72 H (0.24-0.36) K/mm3 Eos # (Auto) 1.93 H (0.04-0.36) K/mm3 Baso # (Auto) 0.04 (0.01-0.08) K/mm3 Manual Slide Review Abnormal smear Sodium 141 (136-145) mEq/L Potassium 4.5 (3.5-5.1) mEq/L Chloride 104 (98-107) mEq/L Carbon Dioxide 25 (21-32) mEq/L Anion Gap 16.5 H (5-15) BUN 11 (7-18) mg/dL Creatinine 0.9 (0.55-1.02) mg/dL Est Cr Clr Drug Dosing 96.96 mL/min Estimated GFR (MDRD) > 60 (>60) mL/min BUN/Creatinine Ratio 12.2 L (14-18) Glucose 274 H (74-106) mg/dL POC Glucose 274 H (70-105) mg/dL Calcium 8.9 (8.5-10.1) mg/dL Total Bilirubin 0.5 (0.2-1.0) mg/dL AST 19 (15-37) U/L ALT 26 (14-59) U/L Alkaline Phosphatase 89 (46-116) U/L Total Protein 7.8 (6.4-8.2) g/dl Albumin 3.9 (3.4-5.0) g/dl Globulin 3.9 gm/dL Albumin/Globulin Ratio 1.0 (1-2) Meds: Medications Generic Name Dose Route Start Last Admin Trade Name Sincere PRN Reason Stop Dose Admin Sodium Chloride 10 ml 10/21/20 10:23 10/21/20 10:45 Sodium Chloride 0.9% 10 Ml Syringe FLUSH 10 ml ASDIRECTED PRN Administration Keep Vein Open Discontinued Medications Generic Name Dose Route Start Last Admin Trade Name Freq PRN Reason Stop Dose Admin Albuterol Confirm 10/21/20 10:22 10/21/20 10:32 Albuterol 0.5% 2.5 Mg/0.5 Ml Neb Soln Administered 10/21/20 10:23 2.5 mg Dose Administration 2.5 mg .ROUTE .STK-MED ONE Albuterol Confirm 10/21/20 10:29 10/21/20 10:40 Albuterol 0.083% 2.5 Mg/3 Ml Neb Soln Administered 10/21/20 10:30 Not Given Dose 2.5 mg .ROUTE .STK-MED ONE Albuterol 2.5 mg 10/21/20 11:15 10/21/20 11:42 Albuterol 0.083% 2.5 Mg/3 Ml Neb Soln NEB 10/21/20 11:16 2.5 mg ONETIME ONE Administration Albuterol/Ipratropium 3 ml 10/21/20 10:37 10/21/20 10:42 Albuterol/Ipratropium 3.0-0.5 Mg/3 Ml Neb Soln NEB 10/21/20 10:38 3 ml ONETIME ONE Administration Methylprednisolone Sodium Succinate 125 mg 10/21/20 10:24 10/21/20 10:45 Methylprednisolone Sodium Succinate 125 Mg/2 Ml Sdv IVPUSH 10/21/20 10:25 125 mg ONETIME ONE Administration - Re-Assessments/Exams Free Text/Narrative Re-Assessment/Exam: 10/21/20 11:23 I ordered an IV saline lock, solu-medrol 125mg IV, albuterol and labs. RT was asking to give her another treatment so I ordered duoneb. Her WBC was slightly elevated at 10.13. Her anion gap was elevated at 16.5. Her glucose is elevated at 274. She is moving air better. I will give her another albuterol neb and discharge her home on some steroids. 10/21/20 11:51 The 3rd treatment is done. She still has a slight wheeze but she is moving air better. I will discharge her on some prednisone. Departure - Departure Time of Disposition: 11:55 Disposition: Home, Self-Care 01 Condition: Good Clinical Impression: Asthma exacerbation Qualifiers: Asthma severity: severe Asthma persistence: unspecified Qualified Code(s): J45.901 - Unspecified asthma with (acute) exacerbation - Discharge Information *PRESCRIPTION DRUG MONITORING PROGRAM REVIEWED*: Not Applicable *COPY OF PRESCRIPTION DRUG MONITORING REPORT IN PATIENT CARLOS ALBERTO: Not Applicable Prescriptions: predniSONE [Prednisone] 40 mg PO DAILY #10 tablet Referrals: Michell Israel NP [Primary Care Provider] - 1 Week Forms: ED Department Discharge, ED Return to Work/School Form Additional Instructions: Use your inhaler as needed for shortness of breath or wheezing. Take the prednisone daily for 5 days. Be aware the prednisone will increase your blood sugar. Follow up with Michell within a week. Please return if you are worse. Sepsis Event Note (ED) - Evaluation Sepsis Screening Result: No Definite Risk - Focused Exam Vital Signs: Vital Signs Temp Pulse Resp BP Pulse Ox Pulse Ox 10/21/20 11:28 98 10/21/20 10:37 99 10/21/20 10:33 93 L 10/21/20 10:19 97.6 F 128 H 26 H 154/137 H 88 L - My Orders Last 24 Hours: My Active Orders 10/21/20 10:23 Sodium Chloride 0.9% [Saline Flush] 10 ml FLUSH ASDIRECTED PRN Peripheral IV Insertion Adult [OM.PC] Stat 10/21/20 10:24 Cardiac Monitoring [RC] . DIRECTED Peripheral IV Care [RC] . DIRECTED 10/21/20 10:25 Oxygen Therapy Adult [Oxygen Therapy, ED] [RC] ASDIRECTED 10/21/20 10:37 RT Aerosol Therapy [RC] ASDIRECTED 10/21/20 11:15 RT Aerosol Therapy [RC] ASDIRECTED - Assessment/Plan Last 24 Hours: My Active Orders 10/21/20 10:23 Sodium Chloride 0.9% [Saline Flush] 10 ml FLUSH ASDIRECTED PRN Peripheral IV Insertion Adult [OM.PC] Stat 10/21/20 10:24 Cardiac Monitoring [RC] . DIRECTED Peripheral IV Care [RC] . DIRECTED 10/21/20 10:25 Oxygen Therapy Adult [Oxygen Therapy, ED] [RC] ASDIRECTED 10/21/20 10:37 RT Aerosol Therapy [RC] ASDIRECTED 10/21/20 11:15 RT Aerosol Therapy [RC] ASDIRECTED
[2020-10-21] MEDS ORDERED: Albuterol 0.083% 2.5 MG/3 ML Neb Soln NEB ONE (11:15)
== END 2020-10-21 12:11 | disposition home or self-care (01) ==
LOC: JD.ED 10:12
DX: J45.901 Unspecified asthma with (acute) exacerbation (principal); K21.9 Gastro-esophageal reflux disease without esophagitis; E10.9 Type 1 diabetes mellitus without complications; D72.829 Elevated white blood cell count, unspecified; Z91.048 Other nonmedicinal substance allergy status; Z88.0 Allergy status to penicillin; Z79.899 Other long term (current) drug therapy
CPT/HCPCS: 36415; 80053; 82962; 85025; 94640; 96374; 99285; J2930; 99284; J7620-GY

== ENCOUNTER 2020-12-14 04:09 | Emergency (ER) | payer BC ==
[2020-12-14 04:24] VITALS: BP 120/77; PULSE 120
[2020-12-14] MEDS ORDERED: Albuterol/Ipratropium 3.0-0.5 MG/3 ML Neb Soln NEB ONE (04:32)
[2020-12-14] MEDS ORDERED: predniSONE 20 MG Tab PO ONE (04:33)
--- NOTE | 2020-12-14 04:36 | EDM.PDOC ---
ED HPI GENERAL MEDICAL PROBLEM - General Chief Complaint: Asthma Stated Complaint: ronda aguilar attack Time Seen by Provider: 12/14/20 04:29 Source of Information: Reports: Patient, Family History Limitations: Reports: No Limitations - History of Present Illness INITIAL COMMENTS - FREE TEXT/NARRATIVE: The patient presents with her mother for an asthma exacerbation. This started about an hour ago. She denies fever, chills, or cough. She does not smoke. She tried he inhaler and it helped some. Onset: Sudden Duration: Hour(s): Severity: Moderate Improves with: Reports: None Worsens with: Reports: None Associated Symptoms: Reports: Shortness of Breath. Denies: Chest Pain, Cough, Fever/Chills, Headaches, Nausea/Vomiting - Related Data Allergies Allergy/AdvReac Type Severity Reaction Status Date / Time Penicillins Allergy Intermediate Rash Verified 12/14/20 04:25 adhesive tape Allergy Rash Verified 12/14/20 04:25 anjelica Allergy Difficulty Verified 12/14/20 04:25 Breathing Home Meds: Home Meds Singulair. 10 mg PO DAILY 10/09/14 [History] Zyrtec. 10 mg PO DAILY 10/09/14 [History] Albuterol [Proair HFA] 1 - 2 puff INH ASDIRECTED PRN 01/17/15 [History] Insulin Aspart [NovoLOG] 0 unit SUBCUT .PHARMACY TO DOSE 01/17/15 [History] Albuterol [Proventil Neb Soln] 2.5 mg NEB Q4HR PRN #30 ampule 05/08/20 [Rx] Albuterol [Proventil HFA] 2 puff INH Q4H PRN #1 inhaler 12/14/20 [Rx] Fluticasone/Umeclidin/Vilanter [Trelegy Ellipta 100-62.5-25 MCG] 1 puff INH DAILY 12/14/20 [History] predniSONE [Prednisone] 40 mg PO DAILY #10 tablet 12/14/20 [Rx] Past Medical History HEENT History: Reports: Allergic Rhinitis Other HEENT History: allergies Cardiovascular History: Reports: None Respiratory History: Reports: Asthma Gastrointestinal History: Reports: GERD Genitourinary History: Reports: None Psychiatric History: Reports: Anxiety Endocrine/Metabolic History: Reports: Diabetes, Type I, Other (See Below) Other Endocrine/Metabolic History: with insulin pump Dermatologic History: Reports: Eczema Other Dermatologic History: none Social & Family History - Tobacco Use Tobacco Use Status *Q: Never Tobacco User Second Hand Smoke Exposure: No - Caffeine Use Caffeine Use: Reports: Soda - Recreational Drug Use Recreational Drug Use: No - Living Situation & Occupation Living situation: Reports: Single, with Family Occupation: Student (12th grade) ED ROS GENERAL - Review of Systems Review Of Systems: See Below Constitutional: Reports: No Symptoms HEENT: Reports: No Symptoms Respiratory: Reports: Shortness of Breath, Wheezing. Denies: Cough Cardiovascular: Reports: No Symptoms Endocrine: Reports: No Symptoms GI/Abdominal: Reports: No Symptoms : Reports: No Symptoms Musculoskeletal: Reports: No Symptoms ED EXAM, GENERAL - Physical Exam Exam: See Below Exam Limited By: No Limitations General Appearance: Alert, No Apparent Distress Ears: Normal External Exam Nose: Normal Inspection Head: Atraumatic, Normocephalic Neck: Normal Inspection Respiratory/Chest: No Respiratory Distress, Lungs Clear, Normal Breath Sounds Cardiovascular: No Edema, No Murmur, Tachycardia GI/Abdominal: Soft, Non-Tender, No Organomegaly, No Mass Back Exam: Normal Inspection Extremities: Normal Inspection Course - Vital Signs Last Recorded V/S: Last Vital Signs Temp 96.9 F 12/14/20 04:23 Pulse 120 H 12/14/20 04:23 Resp 25 H 12/14/20 04:23 BP 120/77 12/14/20 04:23 Pulse Ox 98 12/14/20 04:40 - Orders/Labs/Meds Orders: Active Orders 24 hr Category Date Time Status RT Aerosol Therapy [RC] ASDIRECTED Care 12/14/20 04:32 Active Meds: Medications Discontinued Medications Generic Name Dose Route Start Last Admin Trade Name Freq PRN Reason Stop Dose Admin Albuterol/Ipratropium 3 ml 12/14/20 04:32 12/14/20 04:37 Albuterol/Ipratropium 3.0-0.5 Mg/3 Ml Neb Soln NEB 12/14/20 04:33 3 ml ONETIME ONE Administration Prednisone 40 mg 12/14/20 04:33 12/14/20 04:37 Prednisone 20 Mg Tab PO 12/14/20 04:34 40 mg ONETIME ONE Administration - Re-Assessments/Exams Free Text/Narrative Re-Assessment/Exam: 12/14/20 04:35 I ordered a duoneb and prednisone 40mg by mouth. 12/14/20 05:12 She feels better and she is moving air better. I will give her a prescription for prednisone and albuterol. Departure - Departure Time of Disposition: 05:15 Disposition: Home, Self-Care 01 Condition: Good Clinical Impression: Asthma exacerbation Qualifiers: Asthma severity: moderate Asthma persistence: unspecified Qualified Code(s): J45.901 - Unspecified asthma with (acute) exacerbation - Discharge Information *PRESCRIPTION DRUG MONITORING PROGRAM REVIEWED*: Not Applicable *COPY OF PRESCRIPTION DRUG MONITORING REPORT IN PATIENT CARLOS ALBERTO: Not Applicable Prescriptions: predniSONE [Prednisone] 40 mg PO DAILY #10 tablet Albuterol [Proventil HFA] 2 puff INH Q4H PRN #1 inhaler PRN Reason: Shortness Of Breath Forms: ED Department Discharge Additional Instructions: Take the prednisone daily for 5 days. Use the inhaler 2 puffs every 4 to 6 hours as needed for shortness of breath. Follow up with your provider within a week. Please return if you are worse. Sepsis Event Note (ED) - Evaluation Sepsis Screening Result: No Definite Risk - Focused Exam Vital Signs: Vital Signs Temp Pulse Resp BP Pulse Ox Pulse Ox 12/14/20 04:40 98 12/14/20 04:23 96.9 F 120 H 25 H 120/77 95 - My Orders Last 24 Hours: My Active Orders 12/14/20 04:32 RT Aerosol Therapy [RC] ASDIRECTED - Assessment/Plan Last 24 Hours: My Active Orders 12/14/20 04:32 RT Aerosol Therapy [RC] ASDIRECTED
== END 2020-12-14 05:45 | disposition home or self-care (01) ==
LOC: JD.ED 04:09
DX: J45.901 Unspecified asthma with (acute) exacerbation (principal); E10.9 Type 1 diabetes mellitus without complications; Z88.0 Allergy status to penicillin; Z91.018 Allergy to other foods; Z91.048 Other nonmedicinal substance allergy status
CPT/HCPCS: 94640; 99284; J7512; 99283; J7620-GY

== ENCOUNTER 2021-04-01 21:34 | Emergency (ER) | payer OTHER ==
[2021-04-01 21:46] VITALS: BP 128/75
--- NOTE | 2021-04-01 22:10 | EDM.PDOC ---
ED HPI GENERAL MEDICAL PROBLEM - General Chief Complaint: Respiratory Problem Stated Complaint: HAS ASTHMA/LUNGS ARE BURNING/BP UP FROM MEDS Time Seen by Provider: 04/01/21 21:45 Source of Information: Reports: Patient, Family (Mother) History Limitations: Reports: No Limitations - History of Present Illness INITIAL COMMENTS - FREE TEXT/NARRATIVE: Ms. Shook is a pleasant 20-year-old woman with a past medical history significant for asthma, who now presents to the ED stating that she has been experiencing progressively worsening dyspnea for the past few weeks. She states that she may have had slight wheezing, although acknowledges that she is not wheezing now. She has had a slight cough, which is normal for her, unchanged. She reports that she has had 2 days of a burning sensation to her chest. No recent fever. The patient states that she has been taking albuterol, both by nebulizer and MDI, with no improvement in her symptoms. Her last dose of albuterol was around 21:00 tonight. She states that she has been tachycardic at home. The patient states that she has a peak flow meter, but rarely uses it. She has a spacer chamber, but does not use it. The patient's mother tells me that the patient has been told in the past that she was not suffering from an asthma exacerbation, and sent home, only to have to return to the ER due to respiratory distress. Here in the ED, the patient is found to be hemodynamically stable, afebrile, saturating 96% on room air. She appears to be comfortable, in no acute distress. Other than her dyspnea, slight wheezing, slight cough, and burning sensation to her chest, the patient denies having a recent fever, chills, sore throat, ear pain, nasal or sinus congestion, palpitations, nausea, vomiting, constipation, diarrhea, abdominal pain, urinary symptoms, recent weight gain or weight loss, recent bloody bowel movements or black bowel movements, recent joint aches, headaches, or rashes. The patient's PCP is Allison Lo NP. Her Quality Control Technician is Dr. Pepe Hui. She has not received a COVID vaccination. - Related Data Allergies Allergy/AdvReac Type Severity Reaction Status Date / Time Penicillins Allergy Intermediate Rash Verified 04/01/21 21:44 adhesive tape Allergy Rash Verified 04/01/21 21:44 anjelica Allergy Difficulty Verified 04/01/21 21:44 Breathing Home Meds: Home Meds Singulair. 10 mg PO DAILY 10/09/14 [History] Zyrtec. 10 mg PO DAILY 10/09/14 [History] Insulin Aspart [NovoLOG] 0 unit SUBCUT .PHARMACY TO DOSE 01/17/15 [History] Albuterol [Proventil Neb Soln] 2.5 mg NEB Q4HR PRN #30 ampule 05/08/20 [Rx] Albuterol [Proventil HFA] 2 puff INH Q4H PRN #1 inhaler 12/14/20 [Rx] Budesonide [Pulmicort Flexhaler] 1 puff IH DAILY 04/01/21 [History] Mepolizumab [Nucala] 100 mg SQ ASDIRECTED 04/01/21 [History] Past Medical History HEENT History: Reports: Allergic Rhinitis Respiratory History: Reports: Asthma Gastrointestinal History: Reports: GERD Psychiatric History: Reports: Anxiety Endocrine/Metabolic History: Reports: Diabetes, Type I (insulin pump), Other (See Below) (Harris-variant galactosemia) Dermatologic History: Reports: Eczema Social & Family History - Tobacco Use Tobacco Use Status *Q: Never Tobacco User Second Hand Smoke Exposure: No - Caffeine Use Caffeine Use: Reports: Soda - Alcohol Use Alcohol Use History: No - Recreational Drug Use Recreational Drug Use: No - Living Situation & Occupation Living situation: Reports: Single, with Family Occupation: Unemployed ED ROS GENERAL - Review of Systems Review Of Systems: Comprehensive ROS is negative, except as noted in HPI. ED EXAM, GENERAL - Physical Exam Exam: See Below Exam Limited By: No Limitations General Appearance: Alert, WD/WN, No Apparent Distress Eye Exam: Bilateral Eye: EOMI, Normal Inspection Ears: Normal External Exam, Hearing Grossly Normal Nose: Normal Inspection Throat/Mouth: Normal Inspection, Normal Lips, Normal Voice, No Airway Compromise Head: Atraumatic, Normocephalic Neck: Normal Inspection, Full Range of Motion Respiratory/Chest: No Respiratory Distress, Lungs Clear, Normal Breath Sounds, No Accessory Muscle Use. No: Decreased Breath Sounds, Crackles, Rhonchi, Wheezing, Stridor, Prolonged Expiration Cardiovascular: Normal Peripheral Pulses, Regular Rate, Rhythm, No Edema, No Gallop, No JVD, No Murmur, No Rub Peripheral Pulses: 3+: Radial (L), Radial (R) GI/Abdominal: Normal Bowel Sounds, Soft, Non-Tender, No Organomegaly, No Distention, No Abnormal Bruit, No Mass Back Exam: Normal Inspection, Full Range of Motion, NT Extremities: Normal Inspection, Normal Range of Motion, No Pedal Edema, Normal Capillary Refill Neurological: Alert, Oriented, Normal Cognition, No Motor/Sensory Deficits Psychiatric: Normal Affect Skin Exam: Warm, Dry, Intact, Normal Color, No Rash Course - Vital Signs Last Recorded V/S: Last Vital Signs Temp 36.1 C 04/01/21 21:41 Pulse 87 04/02/21 00:15 Resp 16 04/02/21 00:15 BP 128/75 04/01/21 21:41 Pulse Ox 99 04/02/21 00:15 - Orders/Labs/Meds Orders: Active Orders 24 hr Category Date Time Status Chest 2V [CR] Stat Exams 04/01/21 22:05 Taken Labs: Laboratory Tests 04/01/21 Range/Units 22:06 SARS-CoV-2 RNA (JAZLYN) Negative (NEGATIVE) - Re-Assessments/Exams Free Text/Narrative Re-Assessment/Exam: 04/01/21 22:06 The patient's history is not consistent with an asthma exacerbation, and that she reports progressively worsening dyspnea over the past few weeks with 2 days of a burning chest sensation, but only slight wheezing, and she agrees that she is not wheezing now, and only a slight cough which is normal for her. On examination, her lungs are entirely clear to auscultation bilaterally, with no wheezing whatsoever or a prolonged expiratory phase. I recommended that we check a swab for the SARS-CoV-2 virus, and a chest x-ray. Provided the chest x- ray is unremarkable, I do not see an indication for blood work. PFT performed on 12/30/2020 found evidence of airway obstruction that was not reversed with a bronchodilator. This is consistent with COPD, specifically emphysema, not asthma. Query whether the patient may have alpha-1 antitrypsin deficiency. 04/01/21 22:39 Two-view chest radiograph reviewed. The cardiac silhouette is within normal limits. No pulmonary vascular congestion. No pleural effusions. No focal infiltrate. No pneumothorax. No hyperinflation. Mild thoracic scoliosis incidentally noted. Bra fasteners noted. Formal read per the Radiologist pending. 04/02/21 00:14 The patient's swab for the SARS-CoV-2 virus is negative. 04/02/21 00:21 Test results discussed with the patient and her mother. I am not recommending any treatment today, but I am recommending that she follow-up with her Quality Control Technician, Dr. Pepe Hui, to discuss getting tested for alpha-1 antitrypsin deficiency. Departure - Departure Time of Disposition: 00:22 Disposition: Home, Self-Care 01 Condition: Good Clinical Impression: Dyspnea - Discharge Information *PRESCRIPTION DRUG MONITORING PROGRAM REVIEWED*: Not Applicable *COPY OF PRESCRIPTION DRUG MONITORING REPORT IN PATIENT CARLOS ALBERTO: Not Applicable Instructions: Shortness of Breath, Adult, [id number] Referrals: Allison Lo NP [Primary Care Provider] - Pepe Hui MD [Ordering Only Provider] - Forms: ED Department Discharge Additional Instructions: You were seen in the emergency room for several weeks of progressively worsening shortness of breath with occasional slight wheezing and your usual slight cough. Work-up in the ER included a swab for the SARS-CoV-2 virus, and a chest x-ray. Both were normal. Reviewing your pulmonary function tests from 12/30/2020, we see that you had airway obstruction, but no improvement following a bronchodilator. This is concerning for COPD, specifically, emphysema, and is not consistent with asthma. We recommend that you follow-up with your Quality Control Technician, Dr. Pepe Hui, to discuss the option of being tested for alpha-1 antitrypsin deficiency. In the meantime, we recommend that you check your peak flow, and only take albuterol if you are in the yellow or red zone. Do not take albuterol if you are in the green zone. We also recommended that if you are ever taking albuterol with an MDI, that you always use a spacer chamber. If any other problems, please do not hesitate to return to the ER. Sepsis Event Note (ED) - Evaluation Sepsis Screening Result: No Definite Risk - Focused Exam Vital Signs: Vital Signs Temp Pulse Resp BP Pulse Ox 04/02/21 00:15 87 16 99 04/01/21 21:41 36.1 C 96 16 128/75 96 - My Orders Last 24 Hours: My Active Orders 04/01/21 22:05 Chest 2V [CR] Stat - Assessment/Plan Last 24 Hours: My Active Orders 04/01/21 22:05 Chest 2V [CR] Stat
[2021-04-02 00:33] VITALS: PULSE 87
--- NOTE | 2021-04-02 07:33 | CR ---
Chest: 2 views of the chest were obtained. Comparison: No prior chest imaging is available. Heart size and mediastinum are normal. Spine shows scoliosis. Linear densities are seen obliquely within both upper lungs compatible with artifact. No acute parenchymal change is seen within either lung. Impression: 1. Artifact within both upper lungs. 2. Scoliosis. 3. Nothing acute is seen on 2 view chest x-ray. Diagnostic code #2
== END 2021-04-02 00:33 | disposition home or self-care (01) ==
LOC: JD.ED 21:34
DX: R06.00 Dyspnea, unspecified (principal); J45.909 Unspecified asthma, uncomplicated; E10.9 Type 1 diabetes mellitus without complications; Z88.0 Allergy status to penicillin; Z91.048 Other nonmedicinal substance allergy status; Z79.899 Other long term (current) drug therapy; Z20.822 Contact with and (suspected) exposure to COVID-19
CPT/HCPCS: 71046; 71046-26; 99285-25; U0002

== ENCOUNTER 2021-05-26 17:03 | Emergency (ER) | payer BC, OTHER, SELFPAY ==
[2021-05-26 17:16] VITALS: BP 124/89; PULSE 125
--- NOTE | 2021-05-26 18:15 | CR ---
Chest: Portable view of the chest was obtained. Comparison: Prior chest x-ray of 04/01/21. Heart size and mediastinum are within normal limits. Minimal atelectasis is seen within both costophrenic angles. Lungs otherwise are clear. Slight scoliosis is noted within the spine. Impression: 1. Slight atelectasis within both lateral costophrenic angles. 2. Scoliosis within the spine. 3. Nothing acute is otherwise seen. Diagnostic code #2
--- NOTE | 2021-05-26 18:37 | EDM.PDOC ---
ED HPI GENERAL MEDICAL PROBLEM - General Chief Complaint: Respiratory Problem Stated Complaint: CHEST/LUNG PAIN Time Seen by Provider: 05/26/21 17:22 Source of Information: Reports: Patient, Family (mother), RN Notes Reviewed - History of Present Illness INITIAL COMMENTS - FREE TEXT/NARRATIVE: 21 yr old female has had cough, wheezing for the past several day. cough and wheezing worse today. Hx asthma. Other family members ill with URI sx 2-3 wks ago. 3 of the members tested at that time for covid all tested neg. She has mild scratchy throat. Has had chills, low grade fever. Chest Pain Score (Numeric/FACES): 5 - Related Data Allergies Allergy/AdvReac Type Severity Reaction Status Date / Time Penicillins Allergy Intermediate Rash Verified 05/26/21 17:16 adhesive tape Allergy Rash Verified 05/26/21 17:16 anjelica Allergy Difficulty Verified 05/26/21 17:16 Breathing Home Meds: Home Meds Singulair. 10 mg PO DAILY 10/09/14 [History] Zyrtec. 10 mg PO DAILY 10/09/14 [History] Insulin Aspart [NovoLOG] 0 unit SUBCUT .PHARMACY TO DOSE 01/17/15 [History] Albuterol [Proventil Neb Soln] 2.5 mg NEB Q4HR PRN #30 ampule 05/08/20 [Rx] Albuterol [Proventil HFA] 2 puff INH Q4H PRN #1 inhaler 12/14/20 [Rx] Budesonide [Pulmicort Flexhaler] 1 puff IH DAILY 04/01/21 [History] Mepolizumab [Nucala] 100 mg SQ ASDIRECTED 04/01/21 [History] predniSONE [Prednisone] 20 mg PO Q12HR #10 tablet 05/26/21 [Rx] Past Medical History HEENT History: Reports: Allergic Rhinitis Other HEENT History: allergies Cardiovascular History: Reports: None Respiratory History: Reports: Asthma, COPD Gastrointestinal History: Reports: GERD Genitourinary History: Reports: None Psychiatric History: Reports: Anxiety Endocrine/Metabolic History: Reports: Diabetes, Type I, Other (See Below) Other Endocrine/Metabolic History: with insulin pump Dermatologic History: Reports: Eczema Other Dermatologic History: none Social & Family History - Tobacco Use Tobacco Use Status *Q: Never Tobacco User Second Hand Smoke Exposure: No - Caffeine Use Caffeine Use: Reports: Soda - Recreational Drug Use Recreational Drug Use: No - Living Situation & Occupation Living situation: Reports: Single, with Family Occupation: Unemployed ED ROS GENERAL - Review of Systems Review Of Systems: See Below Constitutional: Reports: Fever, Chills HEENT: Reports: Rhinitis, Throat Pain Respiratory: Reports: Shortness of Breath, Wheezing Cardiovascular: Denies: Chest Pain Endocrine: Reports: Fatigue GI/Abdominal: Denies: Nausea, Vomiting Musculoskeletal: Reports: Other (muscle aches) Skin: Denies: Rash Neurological: Reports: Headache ED EXAM, GENERAL - Physical Exam Exam: See Below General Appearance: Alert, No Apparent Distress Throat/Mouth: Normal Inspection Neck: Supple Respiratory/Chest: Wheezing (mild bilat, moving air fairly, forced exp. mildly prolonged. ). No: Rhonchi Cardiovascular: Tachycardia Extremities: Normal Inspection. No: Leg Pain Neurological: Alert, Oriented, No Motor/Sensory Deficits Skin Exam: Warm, Dry, Normal Color Course - Vital Signs Last Recorded V/S: Last Vital Signs Temp 97.5 F 05/26/21 17:13 Pulse 125 H 05/26/21 17:13 Resp 16 05/26/21 17:13 BP 124/89 05/26/21 17:13 Pulse Ox 98 05/26/21 17:13 - Orders/Labs/Meds Labs: Laboratory Tests 05/26/21 Range/Units 17:53 SARS-CoV-2 RNA (JAZLYN) Positive H (NEGATIVE) Meds: Medications Discontinued Medications Generic Name Dose Route Start Last Admin Trade Name Freq PRN Reason Stop Dose Admin Prednisone 40 mg 05/26/21 18:47 05/26/21 19:08 Prednisone 20 Mg Tab PO 05/26/21 18:48 40 mg ONETIME ONE Administration - Re-Assessments/Exams Free Text/Narrative Re-Assessment/Exam: 05/26/21 18:37 CXR normal. Departure - Departure Time of Disposition: 18:51 Disposition: Home, Self-Care 01 Condition: Fair Clinical Impression: COVID-19 virus infection Asthma Qualifiers: Asthma severity: unspecified severity Asthma persistence: unspecified Asthma complication type: with acute exacerbation Qualified Code(s): J45.901 - Unspecified asthma with (acute) exacerbation - Discharge Information Prescriptions: predniSONE [Prednisone] 20 mg PO Q12HR #10 tablet Referrals: Allison Lo NP [Primary Care Provider] - Forms: ED Department Discharge, ED Return to Work/School Form Additional Instructions: Continue alternating albuterol and duoneb treatments. Self isolate for at least 10 days from onset of symptoms. Drink plenty of fluids to maintain hydration. We have given prednisone 40 mg this evening. Prednisone 20 mg twice daily for the next 5 days. Prescription has been sent to [facility] located at the [facility]. Sepsis Event Note (ED) - Evaluation Sepsis Screening Result: No Definite Risk - Focused Exam Vital Signs: Vital Signs Temp Pulse Resp BP Pulse Ox 05/26/21 17:13 97.5 F 125 H 16 124/89 98
[2021-05-26] MEDS ORDERED: predniSONE 20 MG Tab PO ONE (18:47)
== END 2021-05-26 19:35 | disposition home or self-care (01) ==
LOC: JD.ED 17:03
DX: U07.1 COVID-19 (principal); J45.901 Unspecified asthma with (acute) exacerbation; E10.9 Type 1 diabetes mellitus without complications; Z88.0 Allergy status to penicillin; Z91.048 Other nonmedicinal substance allergy status
CPT/HCPCS: 71045; 87635; 99285; J7512; 99283; U0002

== ENCOUNTER 2022-03-26 08:40 | Emergency (ER) | payer MEDICAID, OTHER ==
[2022-03-26] MEDS ORDERED: Insulin Regular, Human 100 Units/ML 3 ML Vial IV ONE (09:14)
[2022-03-26] MEDS ORDERED: Sodium Chloride 0.9% 1,000 ML IV ONE ×4 (09:15→14:14)
[2022-03-26] MEDS ORDERED: Ondansetron 4 MG/2 ML SDV IVPUSH ONE (09:20)
[2022-03-26] MEDS ORDERED: Sodium Chloride 0.9% 0 ML ONE (09:22)
[2022-03-26] MEDS ORDERED: Morphine 2 MG/ML SYRINGE IVPUSH ONE (09:45)
[2022-03-26 11:37] LABS: ESTIMATED GFR 47 mL/min (>60)
[2022-03-26] MEDS ORDERED: Dextrose 5%-0.9% NaCl with KCl 1,000 ML IV SCH (15:45)
[2022-03-26 17:48] VITALS: BP 104/73; PULSE 117
== END 2022-03-26 17:54 ==
LOC: JD.ED 08:40
DX: U07.1 COVID-19 (principal); E10.9 Type 1 diabetes mellitus without complications; J44.9 Chronic obstructive pulmonary disease, unspecified; Z88.0 Allergy status to penicillin; Z91.018 Allergy to other foods; Z91.048 Other nonmedicinal substance allergy status; Z20.822 Contact with and (suspected) exposure to COVID-19
CPT/HCPCS: 36415; 36600; 80048; 80053; 81001; 82009; 82803; 82947; 83735; 84484; 84703; 85025; 87635; 93005; 96361; 96365; 96366; 96375; 99285; J1815; J2270; J2405; J3480; J7030; 93010; 99284; U0002

== ENCOUNTER 2022-03-29 21:21 | Emergency (ER) | payer MEDICAID, OTHER ==
[2022-03-29] MEDS ORDERED: Sodium Chloride 0.9% 10 ML Syringe FLUSH PRN (21:24)
[2022-03-29] MEDS ORDERED: methylPREDNISolone Sodium Succinate 125 MG/2 ML SDV IVPUSH ONE (21:25)
[2022-03-29] MEDS ORDERED: Albuterol/Ipratropium 3.0-0.5 MG/3 ML Neb Soln NEB ONE (21:25)
[2022-03-29] MEDS ORDERED: predniSONE 20 MG Tab PO ONE (21:49)
[2022-03-29 21:57] VITALS: BP 126/94; PULSE 146
[2022-03-29 22:04] LABS: ESTIMATED GFR 107 mL/min (>60)
== END 2022-03-29 23:47 | disposition home or self-care (01) ==
LOC: JD.ED 21:21
DX: J45.901 Unspecified asthma with (acute) exacerbation (principal); E10.9 Type 1 diabetes mellitus without complications; Z88.0 Allergy status to penicillin; Z91.048 Other nonmedicinal substance allergy status
CPT/HCPCS: 36415; 36600; 71045; 80053; 82009; 82803; 83930; 85025; 94640; 99285; J3490; J7512; J2930; J7620-GY

== ENCOUNTER 2022-04-17 19:38 | Emergency (ER) | payer MEDICAID ==
[2022-04-17] MEDS ORDERED: methylPREDNISolone Sodium Succinate 125 MG/2 ML SDV IVPUSH ONE (20:22)
[2022-04-17] MEDS ORDERED: Albuterol/Ipratropium 3.0-0.5 MG/3 ML Neb Soln NEB ONE (20:22)
[2022-04-17] MEDS ORDERED: LORazepam 2 MG/ML SDV IVPUSH ONE (20:22)
[2022-04-17] MEDS ORDERED: LORazepam 1 MG Tab PO ONE (20:55)
[2022-04-17] MEDS ORDERED: methylPREDNISolone Sodium Succinate 40 MG/1 ML SDV IM ONE (20:56)
[2022-04-17 20:57] LABS: CORONAVIRUS COVID-19 NAA NEGATIVE (NEGATIVE)
[2022-04-17 22:25] VITALS: BP 130/84; PULSE 110
== END 2022-04-17 22:24 | disposition home or self-care (01) ==
LOC: JD.ED 19:38
DX: J45.901 Unspecified asthma with (acute) exacerbation (principal); E10.9 Type 1 diabetes mellitus without complications; Z20.822 Contact with and (suspected) exposure to COVID-19; Z88.0 Allergy status to penicillin; Z91.048 Other nonmedicinal substance allergy status; Z79.899 Other long term (current) drug therapy; Z79.4 Long term (current) use of insulin; Z86.16 Personal history of COVID-19
CPT/HCPCS: 0240U; 71045; 94640; 96372; 99285; A9270; J2920; 99284; J7620-GY

== ENCOUNTER 2022-05-29 14:26 | Emergency (ER) | payer MEDICAID ==
[2022-05-29 14:51] VITALS: BP 122/80; PULSE 122
[2022-05-29] MEDS ORDERED: Albuterol/Ipratropium 3.0-0.5 MG/3 ML Neb Soln NEB PRN (15:05)
[2022-05-29] MEDS ORDERED: Albuterol/Ipratropium 3.0-0.5 MG/3 ML Neb Soln NEB ONE (15:35)
[2022-05-29] MEDS ORDERED: predniSONE 20 MG Tab PO ONE (15:40)
== END 2022-05-29 16:30 | disposition home or self-care (01) ==
LOC: JD.ED 14:26
DX: J45.901 Unspecified asthma with (acute) exacerbation (principal); Z88.0 Allergy status to penicillin; Z91.018 Allergy to other foods; Z79.899 Other long term (current) drug therapy; Z79.4 Long term (current) use of insulin
CPT/HCPCS: 71045; 94640; 99285; J7512; J7620-GY

== ENCOUNTER 2022-06-20 20:58 | Emergency (ER) | payer MEDICAID ==
[2022-06-20 21:55] VITALS: BP 112/78; PULSE 114
[2022-06-20] MEDS ORDERED: Albuterol/Ipratropium 3.0-0.5 MG/3 ML Neb Soln NEB ONE (22:10)
[2022-06-20 22:49] LABS: ESTIMATED GFR 107 mL/min (>60)
[2022-06-20 22:50] LABS: CORONAVIRUS COVID-19 NAA NEGATIVE (NEGATIVE)
== END 2022-06-21 02:45 | disposition home or self-care (01) ==
LOC: JD.ED 20:58
DX: J45.901 Unspecified asthma with (acute) exacerbation (principal); E10.9 Type 1 diabetes mellitus without complications; Z88.0 Allergy status to penicillin; Z91.018 Allergy to other foods; Z91.048 Other nonmedicinal substance allergy status; Z79.899 Other long term (current) drug therapy; Z79.4 Long term (current) use of insulin; Z86.16 Personal history of COVID-19; Z20.822 Contact with and (suspected) exposure to COVID-19
CPT/HCPCS: 0240U; 36415; 71046; 80053; 83735; 85007; 85027; 85379; 86140; 94640; 96365; 99285; J3475; J7620-GY

== ENCOUNTER 2022-08-12 21:14 | Emergency (ER) | payer MEDICAID ==
[2022-08-12 21:31] VITALS: BP 124/68; PULSE 119
[2022-08-12] MEDS ORDERED: Albuterol 0.083% 2.5 MG/3 ML Neb Soln NEB ONE (21:33)
[2022-08-12] MEDS ORDERED: predniSONE 20 MG Tab PO ONE (21:38)
[2022-08-12 22:26] LABS: CORONAVIRUS COVID-19 NAA NEGATIVE (NEGATIVE)
== END 2022-08-12 23:03 | disposition home or self-care (01) ==
LOC: JD.ED 21:14
DX: J45.901 Unspecified asthma with (acute) exacerbation (principal); E10.9 Type 1 diabetes mellitus without complications; Z88.0 Allergy status to penicillin; Z91.048 Other nonmedicinal substance allergy status; Z79.899 Other long term (current) drug therapy; Z20.822 Contact with and (suspected) exposure to COVID-19
CPT/HCPCS: 0241U; 36415; 71045; 80053; 85025; 94640; 99285; J7512; 99283; J7620-GY

== ENCOUNTER 2022-09-06 19:12 | Emergency (ER) | payer MEDICAID ==
[2022-09-06 19:31] VITALS: BP 111/64; PULSE 105
[2022-09-06] MEDS ORDERED: Sodium Chloride 0.9% 10 ML Syringe FLUSH PRN (19:33)
[2022-09-06 20:37] LABS: CORONAVIRUS COVID-19 NAA NEGATIVE (NEGATIVE)
== END 2022-09-06 22:00 | disposition home or self-care (01) ==
LOC: JD.ED 19:12
DX: J02.9 Acute pharyngitis, unspecified (principal); E10.9 Type 1 diabetes mellitus without complications; J45.909 Unspecified asthma, uncomplicated; Z88.0 Allergy status to penicillin; Z91.048 Other nonmedicinal substance allergy status; Z88.1 Allergy status to other antibiotic agents; Z86.16 Personal history of COVID-19; Z20.822 Contact with and (suspected) exposure to COVID-19
CPT/HCPCS: 0241U; 36415; 71046; 80053; 85025; 86140; 99285; 99283

== ENCOUNTER 2022-10-12 18:44 | Emergency (ER) | payer MEDICAID ==
[2022-10-12] MEDS ORDERED: Sodium Chloride 0.9% 1,000 ML IV ONE (19:34)
[2022-10-12] MEDS ORDERED: Insulin Regular, Human 100 Units/ML 3 ML Vial SUBCUT ONE (19:36)
[2022-10-12 21:47] VITALS: BP 126/88; PULSE 94
== END 2022-10-12 21:45 | disposition home or self-care (01) ==
LOC: JD.ED 18:44
DX: E10.65 Type 1 diabetes mellitus with hyperglycemia (principal); J45.909 Unspecified asthma, uncomplicated; Z88.0 Allergy status to penicillin; Z91.048 Other nonmedicinal substance allergy status; Z88.1 Allergy status to other antibiotic agents; Z79.899 Other long term (current) drug therapy; Z86.16 Personal history of COVID-19
CPT/HCPCS: 36415; 80053; 81001; 82009; 82947; 85025; 86140; 96360; 99284; J1815; J7030; 99283

== ENCOUNTER 2022-11-02 18:01 | Emergency (ER) | payer MEDICAID ==
[2022-11-02 18:16] VITALS: BP 115/80; PULSE 90
[2022-11-02] MEDS ORDERED: Ketorolac 30 MG/ML SDV IM ONE (18:36)
== END 2022-11-02 19:17 | disposition home or self-care (01) ==
LOC: JD.ED 18:01
DX: K02.9 Dental caries, unspecified (principal); E10.9 Type 1 diabetes mellitus without complications; Z88.0 Allergy status to penicillin; Z91.048 Other nonmedicinal substance allergy status; Z88.8 Allergy status to other drugs, medicaments and biological substances; Z79.4 Long term (current) use of insulin; Z86.16 Personal history of COVID-19
CPT/HCPCS: 96372; 99282; J1885; 99283

== ENCOUNTER 2022-11-03 15:45 | Emergency (ER) | payer MEDICAID ==
[2022-11-03] MEDS ORDERED: Sodium Chloride 0.9% 10 ML Syringe FLUSH PRN (17:02)
[2022-11-03] MEDS ORDERED: Ondansetron 4 MG/2 ML SDV IVPUSH ONE (17:03)
[2022-11-03] MEDS ORDERED: Sodium Chloride 0.9% 1,000 ML IV ONE (17:03)
[2022-11-03 18:41] LABS: CORONAVIRUS COVID-19 NAA NEGATIVE (NEGATIVE)
[2022-11-03 19:35] VITALS: BP 121/86; PULSE 76
== END 2022-11-03 19:34 | disposition home or self-care (01) ==
LOC: JD.ED 15:45
DX: K08.89 Other specified disorders of teeth and supporting structures (principal); B34.9 Viral infection, unspecified; J45.909 Unspecified asthma, uncomplicated; K21.9 Gastro-esophageal reflux disease without esophagitis; E10.9 Type 1 diabetes mellitus without complications; Z86.16 Personal history of COVID-19; Z88.0 Allergy status to penicillin; Z91.048 Other nonmedicinal substance allergy status; Z88.1 Allergy status to other antibiotic agents; Z88.8 Allergy status to other drugs, medicaments and biological substances; Z20.822 Contact with and (suspected) exposure to COVID-19
CPT/HCPCS: 0241U; 36415; 80053; 85025; 96361; 96374; 99283; J2405; J3490; J7030

== ENCOUNTER 2023-02-04 19:46 | Emergency (ER) | payer MEDICAID ==
[2023-02-04] MEDS ORDERED: Sodium Chloride 0.9% 10 ML Syringe FLUSH PRN (19:54)
[2023-02-04] MEDS ORDERED: Sodium Chloride 0.9% 1,000 ML IV SCH (20:00)
[2023-02-04] MEDS ORDERED: Ondansetron 4 MG/2 ML SDV IVPUSH ONE (20:02)
[2023-02-04 20:03] VITALS: PULSE 118
[2023-02-04 20:34] LABS: BASOPHILS ABSOLUTE AUTO 0.01 K/mm3 (0.01-0.08); BASOPHILS PERCENT AUTO 0.1 % (0.1-1.2); EOSINOPHILS ABSOLUTE AUTO 0.07 K/mm3 (0.04-0.36); HEMATOCRIT 39.5 % (34.1-44.9); HEMOGLOBIN 13.2 gm/dl (11.2-15.7); IMMATURE GRAN ABSOLUTE AUTO 0.01 K/mm3 (0.00-0.10); IMMATURE GRAN PERCENT AUTO 0.1 % (<=1.0); LYMPHOCYTES ABSOLUTE AUTO 2.11 K/mm3 (1.18-3.74); LYMPHOCYTES PERCENT AUTO 31.2 % (19.3-51.7); MEAN CORPUSCULAR HGB CONC 33.4 g/dl (32.2-35.5); MEAN CORPUSCULAR VOLUME 86.8 fl (79.4-94.8); MEAN PLATELET VOLUME 8.8 fl (9.4-12.3); MONOCYTES ABSOLUTE AUTO 0.75 K/mm3 (0.24-0.36); MONOCYTES PERCENT AUTO 11.1 % (4.7-12.5); NEUTROPHILS ABSOLUTE AUTO 3.81 K/mm3 (1.56-6.13); NEUTROPHILS PERCENT AUTO 56.5 % (34.0-71.1); PLATELET COUNT,PLT 396 K/mm3 (182-369); RED BLOOD CELL COUNT 4.55 M/mm3 (3.98-5.22); WHITE BLOOD CELL COUNT,WBC 6.76 K/mm3 (3.98-10.04)
[2023-02-04 20:56] LABS: ALBUMIN 3.9 g/dl (3.4-5.0); ANION GAP 15.5 (5-15); BILIRUBIN TOTAL 0.6 mg/dL (0.2-1.0); CALCIUM 9.6 mg/dL (8.5-10.1); EST CRCL DRUG DOSING (CG) 89.02 mL/min; MAGNESIUM 1.9 mg/dL (1.8-2.4); PHOSPHORUS 3.5 mg/dL (2.6-4.7); POTASSIUM,K 4.5 mEq/L (3.5-5.1); PROTEIN TOTAL,TP 7.7 g/dl (6.4-8.2)
[2023-02-04] MEDS ORDERED: Sodium Chloride 0.9% 1,000 ML IV ONE (21:15)
[2023-02-04 21:36] LABS: APPEARANCE,URINE CLEAR (Clear); BILIRUBIN,URINE NEGATIVE (Negative); COLOR,URINE LIGHT YELLOW (Yellow); GLUCOSE,URINE 2+ (Negative); KETONES,URINE 2+ (Negative); LEUKOCYTE ESTERASE,URINE NEGATIVE (Negative); NITRITE,URINE NEGATIVE (Negative); OCCULT BLOOD,URINE NEGATIVE (Negative); PH,URINE 6.5 (5.0-8.0); PROTEIN,URINE NEGATIVE (Negative)
[2023-02-04] MEDS ORDERED: Insulin Lispro 100 Unit/ML 3 ML KwikPen SUBCUT ONE (21:55)
[2023-02-04 22:00] LABS: BACTERIA,URINE FEW /hpf (FEW); MUCUS,URINE NOT SEEN /hpf (FEW); RBC,URINE 0-5 /hpf (0-5); SQUAMOUS EPITHELIAL CELLS,UR 0-5 /hpf (0-5); WBC,URINE 0-5 /hpf (0-5); YEAST BUDDING,URINE FEW (NOT SEEN)
[2023-02-04 22:12] VITALS: BP 131/76
== END 2023-02-04 22:19 | disposition home or self-care (01) ==
LOC: JD.ED 19:46
DX: E10.65 Type 1 diabetes mellitus with hyperglycemia (principal); J45.909 Unspecified asthma, uncomplicated; Z86.16 Personal history of COVID-19; Z88.0 Allergy status to penicillin; Z91.048 Other nonmedicinal substance allergy status; Z88.1 Allergy status to other antibiotic agents; Z79.899 Other long term (current) drug therapy
CPT/HCPCS: 36415; 80053; 81001; 82009; 82947; 83735; 84100; 85025; 96361; 96374; 99284; J1815; J2405; J7030

== ENCOUNTER 2023-03-25 15:06 | Emergency (ER) | payer SELFPAY ==
[2023-03-25] MEDS ORDERED: Sodium Chloride 0.9% 10 ML Syringe FLUSH PRN (15:29)
[2023-03-25] MEDS ORDERED: Sodium Chloride 0.9% 1,000 ML IV STA (16:06)
[2023-03-25] MEDS ORDERED: Ondansetron 4 MG/2 ML SDV IVPUSH ONE (16:06)
[2023-03-25 16:12] LABS: BASOPHILS PERCENT AUTO 0.5 % (0.0-1.0); EOSINOPHILS ABSOLUTE AUTO 0.1 K/mm3 (0.0-0.4); HEMATOCRIT 39.4 % (37.0-47.0); HEMOGLOBIN 14.1 gm/dl (12.0-16.0); IMMATURE GRAN ABSOLUTE AUTO 0.01 K/mm3 (0.00-0.05); IMMATURE GRAN PERCENT AUTO 0.2 % (0.0-0.4); LYMPHOCYTES PERCENT AUTO 30.6 % (24.0-44.0); MEAN CORPUSCULAR HEMOGLOBIN 29.4 pg (28.0-32.0); MEAN CORPUSCULAR HGB CONC 35.8 g/dl (32.0-36.0); MEAN CORPUSCULAR VOLUME 82.1 fl (83.0-99.0); MONOCYTES ABSOLUTE AUTO 0.5 K/mm3 (0.0-0.8); MONOCYTES PERCENT AUTO 7.3 % (0.0-8.0); NEUTROPHILS ABSOLUTE AUTO 3.9 K/mm3 (1.8-7.7); NEUTROPHILS PERCENT AUTO 59.4 % (41.0-71.0); PLATELET COUNT,PLT 448 K/mm3 (150-400); WHITE BLOOD CELL COUNT,WBC 6.48 K/mm3 (3.9-11.3)
[2023-03-25 16:36] LABS: ALBUMIN 3.8 g/dl (3.4-5.0); ANION GAP 16.4 (5-15); BILIRUBIN TOTAL 0.5 mg/dL (0.2-1.0); BUN/CREATININE RATIO 14.5 (14-18); CREATININE 1.1 mg/dL (0.55-1.02); EST CRCL DRUG DOSING (CG) 78.01 mL/min; POTASSIUM,K 4.4 mEq/L (3.5-5.1); PROTEIN TOTAL,TP 7.7 g/dl (6.4-8.2)
[2023-03-25 17:16] LABS: APPEARANCE,URINE CLEAR (Clear); BILIRUBIN,URINE NEGATIVE (Negative); COLOR,URINE YELLOW (Yellow); GLUCOSE,URINE 3+ (Negative); KETONES,URINE 1+ (Negative); LEUKOCYTE ESTERASE,URINE NEGATIVE (Negative); NITRITE,URINE NEGATIVE (Negative); OCCULT BLOOD,URINE NEGATIVE (Negative); PROTEIN,URINE NEGATIVE (Negative); UROBILINOGEN,URINE 0.2 (0.2-1.0)
[2023-03-25 17:24] LABS: BACTERIA,URINE RARE /hpf (FEW); EPITHELIAL CELLS,URINE 0-5 /hpf (0-5); MUCUS,URINE NOT SEEN /hpf (FEW); RBC,URINE 0-5 /hpf (0-5); WBC,URINE 0-5 /hpf (0-5)
[2023-03-25 19:39] VITALS: BP 118/70; PULSE 77
== END 2023-03-25 19:36 | disposition home or self-care (01) ==
LOC: JD.ED 15:06
DX: E10.65 Type 1 diabetes mellitus with hyperglycemia (principal); J45.909 Unspecified asthma, uncomplicated; Z88.0 Allergy status to penicillin; Z91.09 Other allergy status, other than to drugs and biological substances; Z88.1 Allergy status to other antibiotic agents; Z88.8 Allergy status to other drugs, medicaments and biological substances; Z79.51 Long term (current) use of inhaled steroids; Z86.16 Personal history of COVID-19
CPT/HCPCS: 36415; 80053; 81001; 82009; 82947; 85025; 96361; 96374; 99284; J2405; J3490; J7030

== ENCOUNTER 2023-04-21 13:47 | Emergency (ER) | payer SELFPAY ==
[2023-04-21] MEDS ORDERED: Albuterol/Ipratropium 3.0-0.5 MG/3 ML Neb Soln NEB ONE ×2 (15:06→16:16)
[2023-04-21 15:53] LABS: BASOPHILS PERCENT AUTO 0.3 % (0.0-1.0); EOSINOPHILS ABSOLUTE AUTO 0.2 K/mm3 (0.0-0.4); EOSINOPHILS PERCENT AUTO 1.3 % (0.0-6.0); HEMATOCRIT 42.1 % (37.0-47.0); HEMOGLOBIN 14.4 gm/dl (12.0-16.0); IMMATURE GRAN ABSOLUTE AUTO 0.13 K/mm3 (0.00-0.05); LYMPHOCYTES ABSOLUTE AUTO 3.1 K/mm3 (1.0-4.8); LYMPHOCYTES PERCENT AUTO 22.7 % (24.0-44.0); MEAN CORPUSCULAR HEMOGLOBIN 29.2 pg (28.0-32.0); MEAN CORPUSCULAR HGB CONC 34.2 g/dl (32.0-36.0); MEAN CORPUSCULAR VOLUME 85.4 fl (83.0-99.0); MEAN PLATELET VOLUME 8.7 fl (9.4-12.3); MONOCYTES ABSOLUTE AUTO 0.8 K/mm3 (0.0-0.8); MONOCYTES PERCENT AUTO 6.2 % (0.0-8.0); NEUTROPHILS ABSOLUTE AUTO 9.3 K/mm3 (1.8-7.7); NEUTROPHILS PERCENT AUTO 68.5 % (41.0-71.0); RED BLOOD CELL COUNT 4.93 M/mm3 (4.10-5.30); WHITE BLOOD CELL COUNT,WBC 13.53 K/mm3 (3.9-11.3)
[2023-04-21 15:54] LABS: PLATELET COUNT,PLT 442 K/mm3 (150-400)
[2023-04-21 16:04] LABS: A/G RATIO 0.9 (1-2); ALBUMIN 3.2 g/dl (3.4-5.0); ANION GAP 9.1 (5-15); BILIRUBIN TOTAL 0.3 mg/dL (0.2-1.0); BUN/CREATININE RATIO 13.8 (14-18); CALCIUM 8.7 mg/dL (8.5-10.1); CREATININE 0.8 mg/dL (0.55-1.02); EST CRCL DRUG DOSING (CG) 107.26 mL/min; POTASSIUM,K 4.1 mEq/L (3.5-5.1); PROTEIN TOTAL,TP 6.8 g/dl (6.4-8.2)
[2023-04-21 20:15] VITALS: BP 124/75; PULSE 99
== END 2023-04-21 17:35 | disposition home or self-care (01) ==
LOC: JD.ED 13:47
DX: J44.9 Chronic obstructive pulmonary disease, unspecified (principal); E88.01 Alpha-1-antitrypsin deficiency; F17.210 Nicotine dependence, cigarettes, uncomplicated; E10.9 Type 1 diabetes mellitus without complications; Z86.16 Personal history of COVID-19; Z79.899 Other long term (current) drug therapy; Z88.0 Allergy status to penicillin; Z88.1 Allergy status to other antibiotic agents; Z88.8 Allergy status to other drugs, medicaments and biological substances; Z91.048 Other nonmedicinal substance allergy status
CPT/HCPCS: 36415; 71046; 71046-26; 80053; 85025; 94640; 94667; 99285; J7620-GY

== ENCOUNTER 2023-06-01 19:12 | Emergency (ER) | payer SELFPAY ==
[2023-06-01] MEDS ORDERED: Clindamycin HCl 150 MG Cap PO ONE (19:55)
[2023-06-01] MEDS ORDERED: Ketorolac 60 MG/2 ML SDV IM ONE (19:55)
[2023-06-01] MEDS ORDERED: Acetaminophen/Codeine 300-30 MG Tab PO ONE (19:57)
[2023-06-01 21:20] VITALS: BP 132/86; PULSE 85
== END 2023-06-01 21:18 | disposition home or self-care (01) ==
LOC: JD.ED 19:12
DX: K08.89 Other specified disorders of teeth and supporting structures (principal); E10.9 Type 1 diabetes mellitus without complications; Z86.16 Personal history of COVID-19; Z88.0 Allergy status to penicillin; Z91.048 Other nonmedicinal substance allergy status; Z88.8 Allergy status to other drugs, medicaments and biological substances
CPT/HCPCS: 96372; 99283; A9270; J1885; 99282

== ENCOUNTER 2023-06-15 18:02 | Emergency (ER) | payer SELFPAY ==
[2023-06-15] MEDS ORDERED: predniSONE 20 MG Tab PO ONE (19:59)
[2023-06-15] MEDS: Albuterol 0.083% 2.5 MG/3 ML Neb Soln NEB SCH ×3 (20:18→21:02)
[2023-06-15] MEDS ORDERED: Albuterol 6.7 GM Inhaler INH ONE (21:34)
[2023-06-15 22:24] VITALS: BP 139/85; PULSE 117
== END 2023-06-15 22:04 | disposition home or self-care (01) ==
LOC: JD.ED 18:02
DX: J44.1 Chronic obstructive pulmonary disease with (acute) exacerbation (principal); J45.909 Unspecified asthma, uncomplicated; E10.9 Type 1 diabetes mellitus without complications; Z88.0 Allergy status to penicillin; Z79.899 Other long term (current) drug therapy; Z86.16 Personal history of COVID-19; Z91.048 Other nonmedicinal substance allergy status; Z88.1 Allergy status to other antibiotic agents
CPT/HCPCS: 71046; 94640; 99285; J7512; J7620-GY

== ENCOUNTER 2023-06-20 12:39 | Emergency (ER) | payer SELFPAY ==
[2023-06-20 12:56] VITALS: PULSE 119
[2023-06-20] MEDS ORDERED: Sodium Chloride 0.9% 1,000 ML IV ONE (13:23)
[2023-06-20] MEDS ORDERED: LORazepam 2 MG/ML SDV IVPUSH ONE (13:24)
[2023-06-20 13:57] LABS: BASOPHILS ABSOLUTE AUTO 0.1 K/mm3 (0.0-0.2); BASOPHILS PERCENT AUTO 0.5 % (0.0-1.0); EOSINOPHILS ABSOLUTE AUTO 0.6 K/mm3 (0.0-0.4); EOSINOPHILS PERCENT AUTO 6.3 % (0.0-6.0); HEMATOCRIT 41.1 % (37.0-47.0); HEMOGLOBIN 14.4 gm/dl (12.0-16.0); IMMATURE GRAN ABSOLUTE AUTO 0.04 K/mm3 (0.00-0.05); IMMATURE GRAN PERCENT AUTO 0.4 % (0.0-0.4); LYMPHOCYTES ABSOLUTE AUTO 2.5 K/mm3 (1.0-4.8); LYMPHOCYTES PERCENT AUTO 26.1 % (24.0-44.0); MEAN CORPUSCULAR HEMOGLOBIN 29.3 pg (28.0-32.0); MEAN CORPUSCULAR VOLUME 83.7 fl (83.0-99.0); MONOCYTES ABSOLUTE AUTO 0.7 K/mm3 (0.0-0.8); MONOCYTES PERCENT AUTO 7.7 % (0.0-8.0); NEUTROPHILS ABSOLUTE AUTO 5.7 K/mm3 (1.8-7.7); PLATELET COUNT,PLT 486 K/mm3 (150-400); RED BLOOD CELL COUNT 4.91 M/mm3 (4.10-5.30); WHITE BLOOD CELL COUNT,WBC 9.58 K/mm3 (3.9-11.3)
[2023-06-20 14:42] LABS: ALBUMIN 3.3 g/dl (3.4-5.0); ANION GAP 13.7 (5-15); BILIRUBIN TOTAL 0.4 mg/dL (0.2-1.0); BUN/CREATININE RATIO 21.3 (14-18); CALCIUM 8.5 mg/dL (8.5-10.1); CREATININE 0.8 mg/dL (0.55-1.02); EST CRCL DRUG DOSING (CG) 106.36 mL/min; MAGNESIUM 1.7 mg/dL (1.8-2.4); POTASSIUM,K 3.7 mEq/L (3.5-5.1); PROTEIN TOTAL,TP 6.7 g/dl (6.4-8.2)
[2023-06-20 14:55] LABS: CORONAVIRUS COVID-19 NAA NEGATIVE (NEGATIVE); INFLUENZA A NAA NEGATIVE (NEGATIVE)
[2023-06-20] MEDS ORDERED: Magnesium Sulfate (4.06 MEQ/ML) 5 GM/10 ML SDV IV ONE (15:25)
[2023-06-20] MEDS ORDERED: Magnesium Sulfate/Water 2 GM/50 ML BAG IV ONE (15:30)
[2023-06-20] MEDS ORDERED: 50% Dextrose in Water 50 ML Syringe ONE (15:46)
[2023-06-20] MEDS: 50% Dextrose in Water 50 ML Syringe IVPUSH PRN ×2 (15:51→17:56)
[2023-06-20 18:47] LABS: BILIRUBIN,URINE NEGATIVE (Negative); COLOR,URINE YELLOW (Yellow); GLUCOSE,URINE 2+ (Negative); KETONES,URINE NEGATIVE (Negative); LEUKOCYTE ESTERASE,URINE NEGATIVE (Negative); NITRITE,URINE NEGATIVE (Negative); OCCULT BLOOD,URINE NEGATIVE (Negative); PROTEIN,URINE 1+ (Negative)
[2023-06-20 18:55] LABS: APPEARANCE,URINE SLT CLOUDY (Clear)
[2023-06-20 18:56] LABS: BACTERIA,URINE MANY /hpf (FEW); BARBITURATE SCREEN,URINE NEGATIVE (CUTOFF=200); BENZODIAZEPINES SCREEN,URINE NEGATIVE (CUTOFF=150); BUPRENORPHINE SCREEN,URINE NEGATIVE (CUTOFF=10); METHADONE SCREEN, URINE NEGATIVE (CUTOFF=200); METHAMPHETAMINES SCREEN, URINE NEGATIVE (CUTOFF=500); MUCUS,URINE MODERATE /hpf (FEW); OXYCODONE SCREEN,URINE NEGATIVE (CUT0FF=100); RBC,URINE 0-5 /hpf (0-5); THC SCREEN,URINE 20 NG/ML NEGATIVE (CUTOFF=50)
[2023-06-20 19:07] LABS: AMPHETAMINES SCREEN, URINE NEGATIVE (CUTOFF=500)
[2023-06-20] MEDS ORDERED: Propranolol 20 MG Tab PO ONE (19:32)
[2023-06-20 20:09] VITALS: BP 139/78
== END 2023-06-20 20:10 | disposition home or self-care (01) ==
LOC: JD.ED 12:39
DX: R25.1 Tremor, unspecified (principal); J45.909 Unspecified asthma, uncomplicated; K21.9 Gastro-esophageal reflux disease without esophagitis; E10.9 Type 1 diabetes mellitus without complications; Z86.16 Personal history of COVID-19; Z20.822 Contact with and (suspected) exposure to COVID-19; Z88.0 Allergy status to penicillin; Z88.1 Allergy status to other antibiotic agents; Z91.048 Other nonmedicinal substance allergy status; Z91.018 Allergy to other foods
CPT/HCPCS: 0240U; 36415; 80053; 80306; 81001; 82947; 83735; 84703; 85025; 96361; 96365; 96366; 96375; 99284; J2060; J3475; J7030; 99283; J3490

== ENCOUNTER 2023-06-26 23:32 | Emergency (ER) | payer SELFPAY ==
[2023-06-26] MEDS ORDERED: Sodium Chloride 0.9% 10 ML Syringe FLUSH PRN (23:43)
[2023-06-26] MEDS ORDERED: Magnesium Sulfate/Water 2 GM in Premix Bag 1 BAG IV ONE (23:43)
[2023-06-26] MEDS ORDERED: methylPREDNISolone Sodium Succinate 125 MG/2 ML SDV IVPUSH ONE (23:43)
[2023-06-26] MEDS ORDERED: Albuterol/Ipratropium 3.0-0.5 MG/3 ML Neb Soln NEB ONE (23:44)
[2023-06-26 23:51] VITALS: BP 137/99
[2023-06-27 00:34] VITALS: PULSE 114
[2023-06-27] MEDS ORDERED: Albuterol/Ipratropium 3.0-0.5 MG/3 ML Neb Soln NEB ONE (00:56)
[2023-06-27] MEDS ORDERED: Albuterol 6.7 GM Inhaler INH ONE (00:56)
== END 2023-06-27 01:39 | disposition home or self-care (01) ==
LOC: JD.ED 23:32
DX: J45.901 Unspecified asthma with (acute) exacerbation (principal); E10.9 Type 1 diabetes mellitus without complications; Z86.16 Personal history of COVID-19; Z91.048 Other nonmedicinal substance allergy status; Z88.0 Allergy status to penicillin; Z88.1 Allergy status to other antibiotic agents; Z79.899 Other long term (current) drug therapy
CPT/HCPCS: 94640; 96365; 96366; 96375; 99284; A9270; J2930; J3475; J3490; J7620-GY

== ENCOUNTER 2023-06-30 13:31 | Emergency (ER) | payer SELFPAY ==
[2023-06-30] MEDS ORDERED: methylPREDNISolone Sodium Succinate 125 MG/2 ML SDV IVPUSH ONE (13:34)
[2023-06-30] MEDS ORDERED: methylPREDNISolone Sodium Succinate 125 MG/2 ML SDV ONE (13:35)
[2023-06-30] MEDS ORDERED: Sodium Chloride 0.9% 10 ML Syringe FLUSH PRN (13:35)
[2023-06-30 13:49] LABS: BASOPHILS ABSOLUTE AUTO 0.1 K/mm3 (0.0-0.2); BASOPHILS PERCENT AUTO 0.3 % (0.0-1.0); EOSINOPHILS ABSOLUTE AUTO 0.9 K/mm3 (0.0-0.4); EOSINOPHILS PERCENT AUTO 5.6 % (0.0-6.0); HEMATOCRIT 47.7 % (37.0-47.0); IMMATURE GRAN ABSOLUTE AUTO 0.08 K/mm3 (0.00-0.05); IMMATURE GRAN PERCENT AUTO 0.5 % (0.0-0.4); LYMPHOCYTES ABSOLUTE AUTO 4.4 K/mm3 (1.0-4.8); MEAN CORPUSCULAR HEMOGLOBIN 29.1 pg (28.0-32.0); MEAN CORPUSCULAR HGB CONC 33.8 g/dl (32.0-36.0); MEAN CORPUSCULAR VOLUME 86.1 fl (83.0-99.0); MEAN PLATELET VOLUME 8.3 fl (9.4-12.3); MONOCYTES ABSOLUTE AUTO 1.1 K/mm3 (0.0-0.8); MONOCYTES PERCENT AUTO 7.5 % (0.0-8.0); NEUTROPHILS ABSOLUTE AUTO 8.6 K/mm3 (1.8-7.7); NEUTROPHILS PERCENT AUTO 57.1 % (41.0-71.0); RED BLOOD CELL COUNT 5.54 M/mm3 (4.10-5.30); WHITE BLOOD CELL COUNT,WBC 15.16 K/mm3 (3.9-11.3)
[2023-06-30 13:53] VITALS: PULSE 135
[2023-06-30] MEDS ORDERED: Albuterol/Ipratropium 3.0-0.5 MG/3 ML Neb Soln NEB STA (13:57)
[2023-06-30 14:02] LABS: HEMOGLOBIN 16.1 gm/dl (12.0-16.0); PLATELET COUNT,PLT 568 K/mm3 (150-400)
[2023-06-30] MEDS ORDERED: Albuterol 0.083% 2.5 MG/3 ML Neb Soln NEB PRN (14:02)
[2023-06-30 14:12] LABS: A/G RATIO 0.8 (1-2); ALBUMIN 3.5 g/dl (3.4-5.0); ANION GAP 13.8 (5-15); BILIRUBIN TOTAL 0.5 mg/dL (0.2-1.0); BUN/CREATININE RATIO 16.7 (14-18); CALCIUM 8.7 mg/dL (8.5-10.1); CREATININE 0.9 mg/dL (0.55-1.02); EST CRCL DRUG DOSING (CG) 94.54 mL/min; MAGNESIUM 1.6 mg/dL (1.8-2.4); POTASSIUM,K 3.8 mEq/L (3.5-5.1); PROTEIN TOTAL,TP 7.8 g/dl (6.4-8.2)
[2023-06-30 14:52] VITALS: BP 113/64
[2023-06-30] MEDS ORDERED: Budesonide 0.5 MG/2 ML Neb Susp NEB ONE (15:03)
[2023-06-30] MEDS ORDERED: Albuterol 0.083% 2.5 MG/3 ML Neb Soln NEB SCH (16:00)
[2023-06-30] MEDS ORDERED: Albuterol 0.5% 2.5 MG/0.5 ML Neb Soln NEB SCH (16:00)
[2023-06-30] MEDS ORDERED: Formoterol/Mometasone 100-5 MCG 8.8 GM Inhaler IH SCH ×2 (16:45→21:00)
[2023-06-30] MEDS ORDERED: Magnesium Sulfate/Water 50 ML ONE (21:15)
== END 2023-06-30 18:45 | disposition home or self-care (01) ==
LOC: JD.ED 13:31
DX: J82.83 Eosinophilic asthma (principal); J45.909 Unspecified asthma, uncomplicated; E10.65 Type 1 diabetes mellitus with hyperglycemia; Z88.0 Allergy status to penicillin; Z88.8 Allergy status to other drugs, medicaments and biological substances; Z91.048 Other nonmedicinal substance allergy status; Z79.899 Other long term (current) drug therapy; Z86.16 Personal history of COVID-19
CPT/HCPCS: 36415; 71046; 80053; 82947; 83605; 83735; 85025; 94640; 96374; 99284; A9270; J2930; J3490; J7620-GY

== ENCOUNTER 2023-06-30 21:12 | Emergency (ER) | payer SELFPAY ==
[2023-06-30] MEDS ORDERED: Sodium Chloride 0.9% 250 ML ONE (21:20)
[2023-06-30] MEDS ORDERED: EPINEPHrine 1 MG/ML SDV IM ONE ×2 (21:20→21:54)
[2023-06-30 21:30] LABS: BASE EXCESS ARTERIAL -10.1 (-2-2.0); O2 SATURATION ARTERIAL 94.9 % (96.0-97.0)
[2023-06-30] MEDS ORDERED: fentaNYL 2,500 MCG in Sodium Chloride 0.9% 200 ML IV SCH (21:30)
[2023-06-30 21:31] LABS: BASOPHILS PERCENT AUTO 0.1 % (0.0-1.0); EOSINOPHILS PERCENT AUTO 0.1 % (0.0-6.0); HEMATOCRIT 43.5 % (37.0-47.0); HEMOGLOBIN 14.5 gm/dl (12.0-16.0); IMMATURE GRAN ABSOLUTE AUTO 0.13 K/mm3 (0.00-0.05); IMMATURE GRAN PERCENT AUTO 0.8 % (0.0-0.4); LYMPHOCYTES ABSOLUTE AUTO 1.1 K/mm3 (1.0-4.8); LYMPHOCYTES PERCENT AUTO 6.6 % (24.0-44.0); MEAN CORPUSCULAR HGB CONC 33.3 g/dl (32.0-36.0); MEAN PLATELET VOLUME 8.7 fl (9.4-12.3); MONOCYTES ABSOLUTE AUTO 0.1 K/mm3 (0.0-0.8); MONOCYTES PERCENT AUTO 0.4 % (0.0-8.0); NEUTROPHILS ABSOLUTE AUTO 14.6 K/mm3 (1.8-7.7); PLATELET COUNT,PLT 554 K/mm3 (150-400); WHITE BLOOD CELL COUNT,WBC 15.92 K/mm3 (3.9-11.3)
[2023-06-30 21:32] LABS: PCO2 ARTERIAL 78.9 mmHg (35.0-45.0)
[2023-06-30] MEDS ORDERED: Magnesium Sulfate/Water 2 GM/50 ML BAG IV ONE (21:38)
[2023-06-30] MEDS ORDERED: Sodium Bicarbonate 8.4% 50 MEQ/50 ML Syringe IVPUSH ONE (21:42)
[2023-06-30 21:59] LABS: A/G RATIO 0.8 (1-2); ALANINE AMINOTRANSFERASE,ALT 21 U/L (14-59); ALBUMIN 3.2 g/dl (3.4-5.0); ALKALINE PHOSPHATASE 90 U/L (46-116); ANION GAP 17.2 (5-15); ASPARTATE AMNIOTRANSFERASE,AST 19 U/L (15-37); BILIRUBIN TOTAL 0.3 mg/dL (0.2-1.0); BLOOD UREA NITROGEN,BUN 20 mg/dL (7-18); BUN/CREATININE RATIO 15.4 (14-18); CALCIUM 8.6 mg/dL (8.5-10.1); CARBON DIOXIDE,CO2 22 mEq/L (21-32); CHLORIDE,CL 99 mEq/L (98-107); CREATININE 1.3 mg/dL (0.55-1.02); ESTIMATED GFR 59 mL/min (>60); PROTEIN TOTAL,TP 7.2 g/dl (6.4-8.2); SODIUM,NA 133 mEq/L (136-145)
[2023-06-30 22:04] LABS: GLUCOSE RANDOM 576 mg/dL (70-99); POTASSIUM,K 5.2 mEq/L (3.5-5.1)
[2023-06-30] MEDS ORDERED: propofoL 100 ML IV SCH (22:25)
[2023-06-30 22:41] LABS: BICARBONATE,ARTERIAL 23.3 meq/L (22.0-26.0); PCO2 ARTERIAL 52.6 mmHg (35.0-45.0)
[2023-06-30] MEDS ORDERED: Insulin Regular in 0.9 % NACL 100 ML IV SCH (23:00)
[2023-07-01 00:15] LABS: ANION GAP 16.7 (5-15); BLOOD UREA NITROGEN,BUN 21 mg/dL (7-18); BUN/CREATININE RATIO 16.2 (14-18); CALCIUM 9.1 mg/dL (8.5-10.1); CARBON DIOXIDE,CO2 23 mEq/L (21-32); CHLORIDE,CL 101 mEq/L (98-107); CREATININE 1.3 mg/dL (0.55-1.02); ESTIMATED GFR 59 mL/min (>60); POTASSIUM,K 4.7 mEq/L (3.5-5.1); SODIUM,NA 136 mEq/L (136-145)
[2023-07-01 00:35] LABS: GLUCOSE RANDOM 520 mg/dL (70-99)
[2023-07-01 01:44] LABS: CORONAVIRUS COVID-19 NAA NEGATIVE (NEGATIVE); INFLUENZA A NAA NEGATIVE (NEGATIVE); RESPIRATORY SYNCYTIAL VIR NAA NEGATIVE (NEGATIVE)
[2023-07-01 03:25] VITALS: PULSE 127
[2023-07-01 07:06] VITALS: BP 134/89
== END 2023-07-01 01:10 ==
LOC: JD.ED 21:12
DX: J96.01 Acute respiratory failure with hypoxia (principal); E10.9 Type 1 diabetes mellitus without complications; Z20.822 Contact with and (suspected) exposure to COVID-19; Z86.16 Personal history of COVID-19; Z88.0 Allergy status to penicillin; Z88.8 Allergy status to other drugs, medicaments and biological substances; Z91.048 Other nonmedicinal substance allergy status; Z79.899 Other long term (current) drug therapy
CPT/HCPCS: 0241U; 36415; 36600; 71045; 71045-26; 80048; 80053; 82803; 82947; 85025; 96365; 96366; 96368; 96372; 96375; 99285-25; 99291; 99292; J0171; J1815; J2250; J2704; J3010; J3475; J3490; J7050

== ENCOUNTER 2023-11-14 04:01 | Emergency (ER) | payer MEDICAID ==
[2023-11-14] MEDS: methylPREDNISolone Sodium Succinate 125 MG/2 ML SDV IM ONE (04:35)
[2023-11-14] MEDS: Albuterol/Ipratropium 3.0-0.5 MG/3 ML Neb Soln NEB ONE (04:38)
[2023-11-14 05:45] VITALS: BP 132/78; PULSE 77
== END 2023-11-14 05:45 | disposition home or self-care (01) ==
LOC: JD.ED 04:01
DX: U07.1 COVID-19 (principal); J45.901 Unspecified asthma with (acute) exacerbation; E10.9 Type 1 diabetes mellitus without complications; K21.9 Gastro-esophageal reflux disease without esophagitis; Z79.899 Other long term (current) drug therapy; Z88.0 Allergy status to penicillin; Z91.048 Other nonmedicinal substance allergy status; Z88.8 Allergy status to other drugs, medicaments and biological substances
CPT/HCPCS: 71045; 94640; 96372; 99285; J2930; J7620-GY

== ENCOUNTER 2024-02-09 21:40 | Emergency (ER) | payer BC, MEDICAID ==
[2024-02-09] MEDS: Albuterol/Ipratropium 3.0-0.5 MG/3 ML Neb Soln NEB ONE ×2 (22:29→22:54)
[2024-02-09] MEDS: Albuterol/Ipratropium 3.0-0.5 MG/3 ML Neb Soln ONE (22:56)
[2024-02-09] MEDS: predniSONE 20 MG Tab PO ONE (23:13)
[2024-02-09 23:20] VITALS: BP 117/68; PULSE 117
== END 2024-02-09 23:21 | disposition home or self-care (01) ==
LOC: JD.ED 21:40
DX: J45.901 Unspecified asthma with (acute) exacerbation (principal); E10.9 Type 1 diabetes mellitus without complications; Z79.899 Other long term (current) drug therapy; Z79.4 Long term (current) use of insulin; Z88.0 Allergy status to penicillin; Z88.8 Allergy status to other drugs, medicaments and biological substances; Z91.048 Other nonmedicinal substance allergy status; Z86.16 Personal history of COVID-19
CPT/HCPCS: 71046; 94640; 99285; J7512; J7620-GY

== ENCOUNTER 2024-02-17 15:06 | Emergency (ER) | payer BC, MEDICAID ==
[2024-02-17 17:02] LABS: BASOPHILS PERCENT AUTO 0.4 % (0.0-1.0); EOSINOPHILS ABSOLUTE AUTO 0.7 K/mm3 (0.0-0.4); EOSINOPHILS PERCENT AUTO 5.9 % (0.0-6.0); HEMATOCRIT 42.4 % (37.0-47.0); HEMOGLOBIN 14.4 gm/dl (12.0-16.0); IMMATURE GRAN ABSOLUTE AUTO 0.13 K/mm3 (0.00-0.05); IMMATURE GRAN PERCENT AUTO 1.1 % (0.0-0.4); LYMPHOCYTES ABSOLUTE AUTO 3.2 K/mm3 (1.0-4.8); LYMPHOCYTES PERCENT AUTO 28.5 % (24.0-44.0); MEAN CORPUSCULAR HEMOGLOBIN 28.6 pg (28.0-32.0); MEAN CORPUSCULAR VOLUME 84.3 fl (83.0-99.0); MEAN PLATELET VOLUME 8.8 fl (9.4-12.3); MONOCYTES PERCENT AUTO 8.6 % (0.0-8.0); NEUTROPHILS ABSOLUTE AUTO 6.3 K/mm3 (1.8-7.7); NEUTROPHILS PERCENT AUTO 55.5 % (41.0-71.0); PLATELET COUNT,PLT 431 K/mm3 (150-400); RED BLOOD CELL COUNT 5.03 M/mm3 (4.10-5.30); WHITE BLOOD CELL COUNT,WBC 11.35 K/mm3 (3.9-11.3)
[2024-02-17] MEDS: Ondansetron 4 MG/2 ML SDV IVPUSH ONE (17:23)
[2024-02-17] MEDS: Sodium Chloride 0.9% 1,000 ML IV SCH (17:23)
[2024-02-17 17:28] LABS: ALBUMIN 3.6 g/dl (3.4-5.0); ANION GAP 12.1 (5-15); BILIRUBIN TOTAL 0.5 mg/dL (0.2-1.0); BUN/CREATININE RATIO 17.5 (14-18); CREATININE 0.8 mg/dL (0.55-1.02); EST CRCL DRUG DOSING (CG) 106.36 mL/min; POTASSIUM,K 3.1 mEq/L (3.5-5.1); PROTEIN TOTAL,TP 7.2 g/dl (6.4-8.2)
[2024-02-17] MEDS: Potassium Chloride 20 MEQ Tab.ER PO ONE (18:53)
[2024-02-17 19:19] LABS: CORONAVIRUS COVID-19 NAA NEGATIVE (NEGATIVE); INFLUENZA A NAA NEGATIVE (NEGATIVE); RESPIRATORY SYNCYTIAL VIR NAA NEGATIVE (NEGATIVE)
[2024-02-17 19:49] VITALS: BP 111/72; PULSE 79
== END 2024-02-17 19:48 | disposition home or self-care (01) ==
LOC: JD.ED 15:06
DX: T67.5XXA Heat exhaustion, unspecified, initial encounter (principal); J45.909 Unspecified asthma, uncomplicated; E10.9 Type 1 diabetes mellitus without complications; Z88.0 Allergy status to penicillin; Z91.048 Other nonmedicinal substance allergy status; Z88.8 Allergy status to other drugs, medicaments and biological substances; Z79.899 Other long term (current) drug therapy; Z86.16 Personal history of COVID-19
CPT/HCPCS: 0241U; 36415; 80053; 85025; 96361; 96374; 99284; A9270; J2405; J7030; 99283

== ENCOUNTER 2024-02-21 18:22 | Observation (INO) | payer BC, MEDICAID ==
[2024-02-21] MEDS: Albuterol/Ipratropium 3.0-0.5 MG/3 ML Neb Soln NEB ONE (19:11)
[2024-02-21] MEDS: methylPREDNISolone Sodium Succinate 125 MG/2 ML SDV IVPUSH ONE (19:28)
[2024-02-21 19:39] LABS: BASOPHILS PERCENT AUTO 0.2 % (0.0-1.0); EOSINOPHILS PERCENT AUTO 7.6 % (0.0-6.0); HEMATOCRIT 41.4 % (37.0-47.0); IMMATURE GRAN ABSOLUTE AUTO 0.07 K/mm3 (0.00-0.05); IMMATURE GRAN PERCENT AUTO 0.5 % (0.0-0.4); LYMPHOCYTES ABSOLUTE AUTO 2.6 K/mm3 (1.0-4.8); LYMPHOCYTES PERCENT AUTO 20.3 % (24.0-44.0); MEAN CORPUSCULAR HEMOGLOBIN 28.5 pg (28.0-32.0); MEAN CORPUSCULAR HGB CONC 33.8 g/dl (32.0-36.0); MEAN CORPUSCULAR VOLUME 84.3 fl (83.0-99.0); MEAN PLATELET VOLUME 8.7 fl (9.4-12.3); MONOCYTES PERCENT AUTO 7.4 % (0.0-8.0); NEUTROPHILS ABSOLUTE AUTO 8.2 K/mm3 (1.8-7.7); PLATELET COUNT,PLT 492 K/mm3 (150-400); RED BLOOD CELL COUNT 4.91 M/mm3 (4.10-5.30); WHITE BLOOD CELL COUNT,WBC 12.85 K/mm3 (3.9-11.3)
[2024-02-21] MEDS: Sodium Chloride 0.9% 10 ML Syringe FLUSH PRN (19:59)
[2024-02-21 20:00] LABS: CORONAVIRUS COVID-19 NAA NEGATIVE (NEGATIVE); INFLUENZA A NAA NEGATIVE (NEGATIVE); RESPIRATORY SYNCYTIAL VIR NAA NEGATIVE (NEGATIVE)
[2024-02-21 20:05] LABS: A/G RATIO 0.9 (1-2); ALBUMIN 3.4 g/dl (3.4-5.0); ANION GAP 14.1 (5-15); BILIRUBIN TOTAL 0.4 mg/dL (0.2-1.0); CALCIUM 8.9 mg/dL (8.5-10.1); CREATININE 0.8 mg/dL (0.55-1.02); EST CRCL DRUG DOSING (CG) 106.36 mL/min; MAGNESIUM 1.8 mg/dL (1.8-2.4); POTASSIUM,K 3.1 mEq/L (3.5-5.1); PROTEIN TOTAL,TP 7.1 g/dl (6.4-8.2)
[2024-02-21] MEDS: Ketorolac 30 MG/ML SDV IVPUSH ONE (22:28)
[2024-02-21] MEDS: Albuterol/Ipratropium 3.0-0.5 MG/3 ML Neb Soln NEB PRN (22:37)
[2024-02-21] MEDS: Magnesium Sulfate/Water 4 GM in Premix Bag 1 BAG IV ONE (22:49)
[2024-02-21] MEDS: Potassium Chloride 20 MEQ Tab.ER PO ONE (23:14)
[2024-02-22] MEDS: Sodium Chloride 0.9% 1,000 ML IV SCH (00:16)
[2024-02-22] MEDS: methylPREDNISolone Sodium Succinate 125 MG/2 ML SDV IVPUSH SCH (03:22)
[2024-02-22 03:46] LABS: APPEARANCE,URINE CLEAR (Clear); BILIRUBIN,URINE NEGATIVE (Negative); COLOR,URINE YELLOW (Yellow); GLUCOSE,URINE 2+ (Negative); KETONES,URINE 1+ (Negative); LEUKOCYTE ESTERASE,URINE NEGATIVE (Negative); NITRITE,URINE NEGATIVE (Negative); OCCULT BLOOD,URINE NEGATIVE (Negative); PH,URINE 6.5 (5.0-8.0); PROTEIN,URINE NEGATIVE (Negative)
[2024-02-22] MEDS ORDERED: Ondansetron 4 MG Tab.DIS PO PRN (07:29)
[2024-02-22] MEDS ORDERED: Melatonin 3 MG Tab PO PRN (07:29)
[2024-02-22] MEDS ORDERED: Sennosides/Docusate Sodium 50-8.6 MG Tab PO PRN (07:29)
[2024-02-22] MEDS ORDERED: Acetaminophen 325 MG Tab PO PRN (07:29)
[2024-02-22] MEDS ORDERED: AUTO INJCT INJECT SCH (07:30)
[2024-02-22] MEDS ORDERED: MEPOLIZUMAB 100 MG/ML INJECT SCH (07:30)
[2024-02-22 07:55] LABS: HEMATOCRIT 37.5 % (37.0-47.0); HEMOGLOBIN 12.6 gm/dl (12.0-16.0); MEAN CORPUSCULAR HEMOGLOBIN 28.9 pg (28.0-32.0); MEAN CORPUSCULAR HGB CONC 33.6 g/dl (32.0-36.0); MEAN PLATELET VOLUME 8.9 fl (9.4-12.3); PLATELET COUNT,PLT 451 K/mm3 (150-400); RED BLOOD CELL COUNT 4.36 M/mm3 (4.10-5.30); WHITE BLOOD CELL COUNT,WBC 13.64 K/mm3 (3.9-11.3)
[2024-02-22 08:20] LABS: ANION GAP 17.3 (5-15); CALCIUM 8.5 mg/dL (8.5-10.1); EST CRCL DRUG DOSING (CG) 85.09 mL/min; MAGNESIUM 2.3 mg/dL (1.8-2.4); POTASSIUM,K 4.3 mEq/L (3.5-5.1)
[2024-02-22] MEDS: DULoxetine 30 MG Cap PO SCH (08:25)
[2024-02-22] MEDS: Enoxaparin 40 MG/0.4 ML Syringe SUBCUT SCH (08:25)
[2024-02-22] MEDS: buPROPion 150 MG Tab.ER PO SCH (08:25)
[2024-02-22] MEDS: Multivitamin Tab PO SCH (08:25)
[2024-02-22] MEDS: Cetirizine 10 MG Tab PO SCH (08:25)
[2024-02-22] MEDS: Formoterol/Mometasone 100-5 MCG 8.8 GM Inhaler INH SCH ×2 (08:57→20:37)
[2024-02-22] MEDS: Tiotropium Bromide 4 GM Inhalation Spray (2.5mcg/1 dose; 10 doses) INH SCH (08:57)
[2024-02-22] MEDS ORDERED: Non-Formulary Medication 1 Each (Fluticasone/Umeclidin/Vilanter [Trelegy Ellipta 200-62.5- INH SCH (09:00)
[2024-02-22] MEDS: Levalbuterol HCl 1.25 MG/3 ML Neb NEB PRN (13:16)
[2024-02-22] MEDS: LORazepam 2 MG/ML SDV IVPUSH PRN (13:37)
[2024-02-22] MEDS: Pantoprazole 40 MG Tab.CR PO SCH (15:22)
[2024-02-22] MEDS: Lactated Ringers 500 ML IV ONE (16:07)
[2024-02-22] MEDS: Metoprolol Tartrate 5 MG/5 ML SDV IVPUSH PRN (17:57)
[2024-02-23 06:29] LABS: HEMATOCRIT 33.8 % (37.0-47.0); HEMOGLOBIN 11.2 gm/dl (12.0-16.0); MEAN CORPUSCULAR HEMOGLOBIN 28.4 pg (28.0-32.0); MEAN CORPUSCULAR HGB CONC 33.1 g/dl (32.0-36.0); MEAN CORPUSCULAR VOLUME 85.6 fl (83.0-99.0); MEAN PLATELET VOLUME 8.8 fl (9.4-12.3); PLATELET COUNT,PLT 396 K/mm3 (150-400); RED BLOOD CELL COUNT 3.95 M/mm3 (4.10-5.30); WHITE BLOOD CELL COUNT,WBC 12.82 K/mm3 (3.9-11.3)
[2024-02-23] MEDS: predniSONE 20 MG Tab PO SCH (06:48)
[2024-02-23 07:12] LABS: ANION GAP 12.8 (5-15); BUN/CREATININE RATIO 16.3 (14-18); CALCIUM 8.4 mg/dL (8.5-10.1); CREATININE 0.8 mg/dL (0.55-1.02); EST CRCL DRUG DOSING (CG) 106.36 mL/min; MAGNESIUM 1.8 mg/dL (1.8-2.4); PHOSPHORUS 3.6 mg/dL (2.6-4.7); POTASSIUM,K 3.8 mEq/L (3.5-5.1)
[2024-02-23] MEDS: Tiotropium Bromide 4 GM Inhalation Spray (2.5mcg/1 dose; 10 doses) INH SCH (08:30)
[2024-02-23] MEDS: Metoprolol Tartrate 25 MG Tab PO SCH ×2 (12:16→20:51)
[2024-02-23] MEDS: ALPRAZolam 0.5 MG Tab PO PRN (17:23)
[2024-02-23] MEDS: Morphine 2 MG/ML SYRINGE IVPUSH ONE (17:42)
[2024-02-23] MEDS: methylPREDNISolone Sodium Succinate 40 MG/1 ML SDV IVPUSH ONE (19:02)
[2024-02-23] MEDS: hydrOXYzine HCl 10 MG Tab PO PRN (22:47)
[2024-02-24] MEDS ORDERED: Propranolol 20 MG Tab PO PRN (07:17)
[2024-02-24 07:22] LABS: HEMATOCRIT 38.2 % (37.0-47.0); HEMOGLOBIN 12.9 gm/dl (12.0-16.0); MEAN CORPUSCULAR HGB CONC 33.8 g/dl (32.0-36.0); MEAN CORPUSCULAR VOLUME 85.8 fl (83.0-99.0); MEAN PLATELET VOLUME 8.7 fl (9.4-12.3); PLATELET COUNT,PLT 460 K/mm3 (150-400); RED BLOOD CELL COUNT 4.45 M/mm3 (4.10-5.30); WHITE BLOOD CELL COUNT,WBC 15.89 K/mm3 (3.9-11.3)
[2024-02-24 07:40] LABS: BUN/CREATININE RATIO 12.2 (14-18); CALCIUM 8.9 mg/dL (8.5-10.1); CREATININE 0.9 mg/dL (0.55-1.02); EST CRCL DRUG DOSING (CG) 94.54 mL/min; MAGNESIUM 1.8 mg/dL (1.8-2.4)
[2024-02-24] MEDS: Potassium Chloride 20 MEQ Tab.ER PO ONE (08:10)
[2024-02-24] MEDS: Magnesium Sulfate/Water 4 GM in Premix Bag 1 BAG IV ONE (08:10)
[2024-02-24 12:13] VITALS: BP 114/66; PULSE 101
== END 2024-02-24 12:07 | disposition home or self-care (01) ==
LOC: JD.ED 18:22 → JD.MS 22:25
PROVIDERS: ADMIT Student in an Organized Health Care Education/Training Program; ATTEND Student in an Organized Health Care Education/Training Program
DX: J45.901 Unspecified asthma with (acute) exacerbation (principal); F32.A Depression, unspecified; K21.9 Gastro-esophageal reflux disease without esophagitis; E11.9 Type 2 diabetes mellitus without complications; F41.9 Anxiety disorder, unspecified; Z79.899 Other long term (current) drug therapy; Z88.0 Allergy status to penicillin; Z91.048 Other nonmedicinal substance allergy status
CPT/HCPCS: 0241U; 36415; 71046; 80048; 80053; 81003; 83735; 84100; 84703; 85025; 85027; 86140; 93005; 94640; 94761; 96374; 96375; 99285; A9270; J1650; J1885; J2060; J2270; J2919; J3475; J3490; J7030; J7120; J7512; J7612; 96361; 96365; 96366; 96372; 96376; 99284; G0378; J7620-GY

== ENCOUNTER 2024-03-14 19:23 | Emergency (ER) | payer BC, MEDICAID ==
[2024-03-14 19:36] VITALS: PULSE 123
[2024-03-14] MEDS: Sodium Chloride 0.9% 10 ML Syringe FLUSH PRN (19:39)
[2024-03-14] MEDS: methylPREDNISolone Sodium Succinate 125 MG/2 ML SDV IVPUSH ONE (19:42)
[2024-03-14] MEDS: Albuterol/Ipratropium 3.0-0.5 MG/3 ML Neb Soln NEB ONE (19:49)
[2024-03-14] MEDS: Albuterol 6.7 GM Inhaler INH ONE (21:58)
[2024-03-14 22:58] VITALS: BP 129/75
== END 2024-03-14 22:18 | disposition home or self-care (01) ==
LOC: JD.ED 19:23
DX: J45.901 Unspecified asthma with (acute) exacerbation (principal); E10.9 Type 1 diabetes mellitus without complications; Z88.0 Allergy status to penicillin; Z88.8 Allergy status to other drugs, medicaments and biological substances; Z91.048 Other nonmedicinal substance allergy status; Z79.899 Other long term (current) drug therapy; Z86.16 Personal history of COVID-19
CPT/HCPCS: 94640; 96374; 99285; A9270; J2919; J3490; J7620-GY

== ENCOUNTER 2024-04-09 14:43 | Emergency (ER) | payer BC, MEDICAID ==
[2024-04-09 17:00] LABS: BASOPHILS PERCENT AUTO 0.4 % (0.0-1.0); EOSINOPHILS ABSOLUTE AUTO 0.2 K/mm3 (0.0-0.4); EOSINOPHILS PERCENT AUTO 2.5 % (0.0-6.0); HEMATOCRIT 39.7 % (37.0-47.0); HEMOGLOBIN 13.1 gm/dl (12.0-16.0); IMMATURE GRAN ABSOLUTE AUTO 0.04 K/mm3 (0.00-0.05); IMMATURE GRAN PERCENT AUTO 0.5 % (0.0-0.4); LYMPHOCYTES ABSOLUTE AUTO 2.1 K/mm3 (1.0-4.8); LYMPHOCYTES PERCENT AUTO 25.9 % (24.0-44.0); MEAN CORPUSCULAR HEMOGLOBIN 28.5 pg (28.0-32.0); MEAN CORPUSCULAR VOLUME 86.5 fl (83.0-99.0); MEAN PLATELET VOLUME 8.7 fl (9.4-12.3); MONOCYTES ABSOLUTE AUTO 0.8 K/mm3 (0.0-0.8); MONOCYTES PERCENT AUTO 9.5 % (0.0-8.0); NEUTROPHILS ABSOLUTE AUTO 4.9 K/mm3 (1.8-7.7); NEUTROPHILS PERCENT AUTO 61.2 % (41.0-71.0); PLATELET COUNT,PLT 419 K/mm3 (150-400); RED BLOOD CELL COUNT 4.59 M/mm3 (4.10-5.30)
[2024-04-09] MEDS: Alum Hydrox/Mag Hydrox/Simeth 30 ML, Lidocaine 2% 15 ML PO ONE (17:23)
[2024-04-09] MEDS: Famotidine 20 MG Tab PO ONE (17:23)
[2024-04-09 17:26] LABS: ALANINE AMINOTRANSFERASE,ALT 16 U/L (14-59); ALBUMIN 3.4 g/dl (3.4-5.0); ALKALINE PHOSPHATASE 102 U/L (46-116); ANION GAP 13.9 (5-15); ASPARTATE AMNIOTRANSFERASE,AST 11 U/L (15-37); BILIRUBIN TOTAL 0.5 mg/dL (0.2-1.0); BLOOD UREA NITROGEN,BUN 13 mg/dL (7-18); BUN/CREATININE RATIO 14.4 (14-18); CARBON DIOXIDE,CO2 24 mEq/L (21-32); CHLORIDE,CL 103 mEq/L (98-107); CREATININE 0.9 mg/dL (0.55-1.02); EST CRCL DRUG DOSING (CG) 98.07 mL/min; ESTIMATED GFR 92 mL/min (>60); GLUCOSE RANDOM 354 mg/dL (70-99); LIPASE 15 U/L (16-77); POTASSIUM,K 3.9 mEq/L (3.5-5.1); PROTEIN TOTAL,TP 6.9 g/dl (6.4-8.2); SODIUM,NA 137 mEq/L (136-145)
[2024-04-09 17:31] LABS: TROPONIN I HIGH SENSITIVITY < 4 pg/mL (<=51)
[2024-04-09 19:40] VITALS: BP 117/81; PULSE 80
== END 2024-04-09 19:46 | disposition home or self-care (01) ==
LOC: JD.ED 14:43
DX: R07.9 Chest pain, unspecified (principal); J44.9 Chronic obstructive pulmonary disease, unspecified; E10.65 Type 1 diabetes mellitus with hyperglycemia; Z88.0 Allergy status to penicillin; Z91.048 Other nonmedicinal substance allergy status; Z88.1 Allergy status to other antibiotic agents; Z91.09 Other allergy status, other than to drugs and biological substances; Z79.899 Other long term (current) drug therapy; Z86.16 Personal history of COVID-19
CPT/HCPCS: 36415; 71045; 80053; 82947; 83690; 83735; 84484; 84703; 85025; 93005; 99285; A9270

== ENCOUNTER 2024-04-30 01:17 | Emergency (ER) | payer MEDICAID ==
[2024-04-30] MEDS: predniSONE 20 MG Tab PO ONE (01:50)
[2024-04-30] MEDS: Albuterol/Ipratropium 3.0-0.5 MG/3 ML Neb Soln NEB ONE (01:51)
[2024-04-30] MEDS: Acetaminophen 325 MG Tab PO ONE (02:44)
[2024-04-30 03:33] VITALS: BP 115/85; PULSE 95
== END 2024-04-30 03:34 | disposition home or self-care (01) ==
LOC: JD.ED 01:17
DX: J45.41 Moderate persistent asthma with (acute) exacerbation (principal); E10.9 Type 1 diabetes mellitus without complications; Z86.16 Personal history of COVID-19; Z88.1 Allergy status to other antibiotic agents; Z88.0 Allergy status to penicillin; Z91.048 Other nonmedicinal substance allergy status; Z79.899 Other long term (current) drug therapy; Z79.52 Long term (current) use of systemic steroids
CPT/HCPCS: 94640; 99284; A9270; J7512; J7620-GY

== ENCOUNTER 2024-04-30 21:37 | Emergency (ER) | payer MEDICAID ==
[2024-04-30] MEDS: Albuterol/Ipratropium 3.0-0.5 MG/3 ML Neb Soln NEB ONE (22:03)
[2024-04-30] MEDS: methylPREDNISolone Sodium Succinate 125 MG/2 ML SDV IVPUSH ONE (22:12)
[2024-04-30] MEDS: Metoclopramide 10 MG/2 ML SDV IVPUSH ONE (22:14)
[2024-04-30] MEDS: diphenhydrAMINE 50 MG/ML SDV IVPUSH ONE (22:17)
[2024-04-30] MEDS: LORazepam 2 MG/ML SDV IVPUSH ONE (22:18)
[2024-04-30] MEDS: Dextrose 5%-0.9% NaCl 1,000 ML IV SCH (22:19)
[2024-04-30 23:57] VITALS: BP 126/79; PULSE 111
== END 2024-04-30 23:42 | disposition home or self-care (01) ==
LOC: JD.ED 21:37
DX: J45.901 Unspecified asthma with (acute) exacerbation (principal); K21.9 Gastro-esophageal reflux disease without esophagitis; E10.9 Type 1 diabetes mellitus without complications; J44.9 Chronic obstructive pulmonary disease, unspecified; Z86.16 Personal history of COVID-19; Z79.899 Other long term (current) drug therapy; Z88.0 Allergy status to penicillin; Z88.8 Allergy status to other drugs, medicaments and biological substances; Z91.048 Other nonmedicinal substance allergy status
CPT/HCPCS: 94640; 96374; 96375; 99285; J1200; J2060; J2765; J2919; J7042; 99284; J7620-GY

== ENCOUNTER 2024-07-15 12:45 | Emergency (ER) | payer MEDICAID, OTHER ==
[2024-07-15] MEDS ORDERED: Albuterol 0.083% 2.5 MG/3 ML Neb Soln NEB PRN (13:47)
[2024-07-15] MEDS: Albuterol/Ipratropium 3.0-0.5 MG/3 ML Neb Soln NEB ONE ×2 (13:49→13:55)
[2024-07-15] MEDS: methylPREDNISolone Sodium Succinate 125 MG/2 ML SDV IVPUSH ONE (14:12)
[2024-07-15] MEDS: LORazepam 2 MG/ML SDV IVPUSH ONE (14:13)
[2024-07-15 18:14] VITALS: BP 129/73; PULSE 123
== END 2024-07-15 17:22 | disposition home or self-care (01) ==
LOC: JD.ED 12:45
DX: J45.901 Unspecified asthma with (acute) exacerbation (principal); J98.01 Acute bronchospasm; J44.9 Chronic obstructive pulmonary disease, unspecified; K21.9 Gastro-esophageal reflux disease without esophagitis; E10.9 Type 1 diabetes mellitus without complications; Z79.899 Other long term (current) drug therapy; Z88.0 Allergy status to penicillin; Z88.8 Allergy status to other drugs, medicaments and biological substances; Z91.048 Other nonmedicinal substance allergy status; Z91.018 Allergy to other foods
CPT/HCPCS: 94640; 96374; 96375; 99284; J2060; J2919; J7620-GY

== ENCOUNTER 2024-09-07 13:59 | Emergency (ER) | payer MEDICAID ==
[2024-09-07 15:01] LABS: HEMATOCRIT 41.9 % (37.0-47.0); MEAN CORPUSCULAR HEMOGLOBIN 28.4 pg (28.0-32.0); MEAN CORPUSCULAR HGB CONC 33.4 g/dl (32.0-36.0); MEAN PLATELET VOLUME 8.4 fl (9.4-12.3); PLATELET COUNT,PLT 431 K/mm3 (150-400); RED BLOOD CELL COUNT 4.93 M/mm3 (4.10-5.30); WHITE BLOOD CELL COUNT,WBC 10.39 K/mm3 (3.9-11.3)
[2024-09-07 15:33] LABS: A/G RATIO 0.9 (1-2); ALBUMIN 3.5 g/dl (3.4-5.0); ANION GAP 9.6 (5-15); BILIRUBIN TOTAL 0.3 mg/dL (0.2-1.0); BUN/CREATININE RATIO 15.6 (14-18); CALCIUM 8.8 mg/dL (8.5-10.1); CREATININE 0.9 mg/dL (0.55-1.02); EST CRCL DRUG DOSING (CG) 93.73 mL/min; POTASSIUM,K 3.6 mEq/L (3.5-5.1); PROTEIN TOTAL,TP 7.3 g/dl (6.4-8.2); TSH 2.315 uIU/mL (0.358-3.74)
[2024-09-07 16:11] LABS: BAND PERCENT MAN 0 % (0-10); BASOPHILS PERCENT MAN 0 (0.1-1.2); EOSINOPHILS PERCENT MAN 3 % (0.7-5.8); LYMPHOCYTES % ATYPICAL MANUAL 0 %; LYMPHOCYTES PERCENT MAN 34 % (20-40); MONOCYTES PERCENT MAN 1 % (2-10)
[2024-09-07 16:12] LABS: PLATELET COUNT ESTIMATE INCREASED
[2024-09-07 16:40] LABS: BARBITURATE SCREEN,URINE NEGATIVE (CUTOFF=200); BENZODIAZEPINES SCREEN,URINE NEGATIVE (CUTOFF=150); BUPRENORPHINE SCREEN,URINE NEGATIVE (CUTOFF=10); METHADONE SCREEN, URINE NEGATIVE (CUTOFF=200); METHAMPHETAMINES SCREEN, URINE NEGATIVE (CUTOFF=500); OXYCODONE SCREEN,URINE NEGATIVE (CUT0FF=100); THC SCREEN,URINE 20 NG/ML NEGATIVE (CUTOFF=50)
[2024-09-07 16:44] LABS: AMPHETAMINES SCREEN, URINE NEGATIVE (CUTOFF=500)
[2024-09-08 01:15] VITALS: BP 121/74; PULSE 123
== END 2024-09-08 01:51 ==
LOC: JD.ED 13:59
DX: F32.A Depression, unspecified (principal); R45.851 Suicidal ideations; E10.65 Type 1 diabetes mellitus with hyperglycemia; J44.89 Other specified chronic obstructive pulmonary disease; Z86.16 Personal history of COVID-19; Z88.0 Allergy status to penicillin; Z91.018 Allergy to other foods; Z91.048 Other nonmedicinal substance allergy status; Z79.51 Long term (current) use of inhaled steroids; Z79.52 Long term (current) use of systemic steroids; Z79.899 Other long term (current) drug therapy
CPT/HCPCS: 36415; 80053; 80143; 80179; 80306; 80307; 81025; 84443; 85007; 85027; 93005; 93010; 99285

== ENCOUNTER 2025-06-18 18:25 | Emergency (ER) | payer MEDICAID ==
[2025-06-18 19:17] LABS: BASOPHILS ABSOLUTE AUTO 0.0 K/mm3 (0.0-0.2); BASOPHILS PERCENT AUTO 0.3 % (0.0-1.0); EOSINOPHILS ABSOLUTE AUTO 0.1 K/mm3 (0.0-0.4); EOSINOPHILS PERCENT AUTO 1.3 % (0.0-6.0); IMMATURE GRAN ABSOLUTE AUTO 0.03 K/mm3 (0.00-0.05); IMMATURE GRAN PERCENT AUTO 0.3 % (0.0-0.4); LYMPHOCYTES ABSOLUTE AUTO 2.7 K/mm3 (1.0-4.8); LYMPHOCYTES PERCENT AUTO 24.9 % (24.0-44.0); MEAN PLATELET VOLUME 8.8 fl (9.4-12.3); MONOCYTES ABSOLUTE AUTO 1.0 K/mm3 (0.0-0.8); MONOCYTES PERCENT AUTO 8.7 % (0.0-8.0); NEUTROPHILS ABSOLUTE AUTO 7.0 K/mm3 (1.8-7.7); NEUTROPHILS PERCENT AUTO 64.5 % (41.0-71.0); NRBC ABSOLUTE 0.00 (0.00-0.02); NRBC PERCENT 0.0 % (0.0-0.2); PLATELET COUNT,PLT 494 K/mm3 (150-400); RED BLOOD CELL COUNT 4.86 M/mm3 (4.10-5.30); WHITE BLOOD CELL COUNT,WBC 10.86 K/mm3 (3.9-11.3)
[2025-06-18] MEDS: LORazepam 2 MG/ML SDV IVPUSH STA (19:25)
[2025-06-18 19:36] LABS: A/G RATIO 0.9 (1-2); ALANINE AMINOTRANSFERASE,ALT 15 U/L (14-59); ASPARTATE AMNIOTRANSFERASE,AST 13 U/L (15-37); BILIRUBIN TOTAL 0.3 mg/dL (0.2-1.0); BLOOD UREA NITROGEN,BUN 14 mg/dL (7-18); CARBON DIOXIDE,CO2 26 mEq/L (21-32); CHLORIDE,CL 105 mEq/L (98-107); CREATINE KINASE,CK 68 U/L (26-192); CREATININE 0.9 mg/dL (0.55-1.02); EST CRCL DRUG DOSING (CG) 92.92 mL/min; ESTIMATED GFR 91 mL/min (>60); GLUCOSE RANDOM 166 mg/dL (70-99); POTASSIUM,K 3.8 mEq/L (3.5-5.1); PROTEIN TOTAL,TP 7.0 g/dl (6.4-8.2); SODIUM,NA 140 mEq/L (136-145)
[2025-06-18 20:06] LABS: ETHANOL BLOOD MEDICAL 0.00 gm% (0.00); TROPONIN I HIGH SENSITIVITY < 4 pg/mL (<=51)
[2025-06-18 21:35] VITALS: BP 125/76; PULSE 77
== END 2025-06-18 21:28 | disposition home or self-care (01) ==
LOC: JD.ED 18:25
DX: R07.89 Other chest pain (principal); B34.9 Viral infection, unspecified; E86.0 Dehydration; J44.89 Other specified chronic obstructive pulmonary disease; K21.9 Gastro-esophageal reflux disease without esophagitis; E10.9 Type 1 diabetes mellitus without complications; Z88.0 Allergy status to penicillin; Z91.048 Other nonmedicinal substance allergy status; Z91.018 Allergy to other foods; Z91.0110 Allergy to milk products, unspecified; Z88.1 Allergy status to other antibiotic agents; Z79.51 Long term (current) use of inhaled steroids; Z79.899 Other long term (current) drug therapy; Z86.16 Personal history of COVID-19
CPT/HCPCS: 36415; 71045; 80053; 80307; 82550; 83690; 83735; 84484; 84703; 85025; 87428; 93005; 96361; 96374; 96375; 99285; J2060; J2470; J7030

== ENCOUNTER 2025-06-21 17:40 | Emergency (ER) | payer MEDICAID ==
[2025-06-21 17:51] VITALS: PULSE 97
[2025-06-21 18:54] VITALS: BP 113/71
== END 2025-06-21 19:11 | disposition home or self-care (01) ==
LOC: JD.ED 17:40
DX: J10.1 Influenza due to other identified influenza virus with other respiratory manifestations (principal); J45.901 Unspecified asthma with (acute) exacerbation; K21.9 Gastro-esophageal reflux disease without esophagitis; E10.9 Type 1 diabetes mellitus without complications; Z86.16 Personal history of COVID-19; Z88.0 Allergy status to penicillin; Z91.018 Allergy to other foods; Z91.048 Other nonmedicinal substance allergy status; Z88.8 Allergy status to other drugs, medicaments and biological substances; Z91.0110 Allergy to milk products, unspecified; Z79.899 Other long term (current) drug therapy
CPT/HCPCS: 71045; 99284; J7512

== ENCOUNTER 2025-06-27 15:39 | Emergency (ER) | payer MEDICAID ==
[2025-06-27] MEDS ORDERED: Sodium Chloride 0.9% 10 ML Syringe FLUSH PRN (16:06)
[2025-06-27 16:25] LABS: BASOPHILS ABSOLUTE AUTO 0.0 K/mm3 (0.0-0.2); BASOPHILS PERCENT AUTO 0.1 % (0.0-1.0); EOSINOPHILS ABSOLUTE AUTO 0.0 K/mm3 (0.0-0.4); EOSINOPHILS PERCENT AUTO 0.0 % (0.0-6.0); IMMATURE GRAN ABSOLUTE AUTO 0.03 K/mm3 (0.00-0.05); IMMATURE GRAN PERCENT AUTO 0.3 % (0.0-0.4); LYMPHOCYTES ABSOLUTE AUTO 1.1 K/mm3 (1.0-4.8); LYMPHOCYTES PERCENT AUTO 11.4 % (24.0-44.0); MEAN PLATELET VOLUME 8.7 fl (9.4-12.3); MONOCYTES ABSOLUTE AUTO 0.8 K/mm3 (0.0-0.8); MONOCYTES PERCENT AUTO 7.5 % (0.0-8.0); NEUTROPHILS ABSOLUTE AUTO 8.1 K/mm3 (1.8-7.7); NEUTROPHILS PERCENT AUTO 80.7 % (41.0-71.0); NRBC ABSOLUTE 0.00 (0.00-0.02); NRBC PERCENT 0.0 % (0.0-0.2); PLATELET COUNT,PLT 477 K/mm3 (150-400); RED BLOOD CELL COUNT 4.93 M/mm3 (4.10-5.30); WHITE BLOOD CELL COUNT,WBC 10.01 K/mm3 (3.9-11.3)
[2025-06-27 16:35] LABS: APPEARANCE,URINE CLEAR (Clear); GLUCOSE,URINE 2+ (Negative); OCCULT BLOOD,URINE NEGATIVE (Negative)
[2025-06-27 16:54] LABS: A/G RATIO 0.9 (1-2); ALANINE AMINOTRANSFERASE,ALT 14.0 U/L (14-59); ASPARTATE AMNIOTRANSFERASE,AST 9.0 U/L (15-37); BILIRUBIN TOTAL 0.3 mg/dL (0.2-1.0); BLOOD UREA NITROGEN,BUN 12.0 mg/dL (7-18); CARBON DIOXIDE,CO2 24.0 mEq/L (21-32); CHLORIDE,CL 105.0 mEq/L (98-107); CREATININE 0.9 mg/dL (0.55-1.02); EST CRCL DRUG DOSING (CG) 92.92 mL/min; ESTIMATED GFR 91.0 mL/min (>60); GLUCOSE RANDOM 124.0 mg/dL (70-99); POTASSIUM,K 4.3 mEq/L (3.5-5.1); PROTEIN TOTAL,TP 7.6 g/dl (6.4-8.2); SODIUM,NA 140.0 mEq/L (136-145)
[2025-06-27] MEDS: Insulin Lispro 100 Unit/ML 3 ML KwikPen SUBCUT ONE (19:55)
[2025-06-27 20:02] VITALS: BP 121/68; PULSE 94
== END 2025-06-27 20:01 | disposition home or self-care (01) ==
LOC: JD.ED 15:39
DX: J45.909 Unspecified asthma, uncomplicated (principal); J18.9 Pneumonia, unspecified organism; E10.9 Type 1 diabetes mellitus without complications; Z88.0 Allergy status to penicillin; Z88.8 Allergy status to other drugs, medicaments and biological substances; Z91.0110 Allergy to milk products, unspecified; Z79.899 Other long term (current) drug therapy; Z86.16 Personal history of COVID-19
CPT/HCPCS: 36415; 71045; 80053; 81001; 85025; 94640; 96360; 99285; J1815; J7030; J7620; A9270-GY